=== PATIENT | male | born 1960 | race Caucasian/White ===

== ENCOUNTER 2018-05-17 05:39 | Inpatient (IN) | payer OTHER ==
[2018-05-17] MEDS ORDERED: IPRATROPIUM-ALBUTEROL 3 ML NEB INHALATION STA (05:44)
[2018-05-17 06:11] LABS: Basophils % (A) 0 %; Eosinophils # (A) 0.3 k/uL (0-0.7); Eosinophils % (A) 3 %; HCT 49.6 % (39.0-53.0); HGB 15.9 gm/dL (13.0-17.5); Lymphocytes # (A) 1.3 k/uL (1.0-4.8); Lymphocytes % (A) 12 %; MCH 30.2 pg (25.0-35.0); MCV 94.4 fL (80.0-100.0); Mean Platelet Volume 8.2; Monocytes # (A) 0.5 k/uL (0-1.0); Monocytes % (A) 5 %; Neutrophils # (A) 8.2 k/uL (1.3-7.7); Neutrophils % (A) 78 %; Platelet Count 256 k/uL (150-450); RBC 5.26 m/uL (4.30-5.90); RDW 12.8 % (11.5-15.5); WBC 10.6 k/uL (3.8-10.6)
--- NOTE | 2018-05-17 06:14 | ED ---
SOB HPI - General Stated Complaint: SOB Time Seen by Provider: 05/17/18 05:43 - History of Present Illness Initial Comments: Gely is a 58-year-old gentleman with a history of severe COPD who is brought to the ED today primary one patient for acute respiratory distress. She called 911 reporting that he couldn't breathe. EMS found the patient tripoding, oxygen saturations in the 60s, decreased air movement in all lung cash. Patient one word dyspnea. Patient was placed on CPAP. Patient received 2 breathing treatments and 125 of Solu-Medrol in route to the hospital. His respiratory effort improved significantly though he continued to have wheezing in all lung cash during the 20 minute transport time. On arrival patient is still requiring BiPAP support. Patient able to nod yes and no to answer questions. - Related Data Home Medications Medication Instructions Recorded Confirmed RX: Albuterol Inhaler [Ventolin 1 - 2 puff INHALATION RT-Q6H PRN 05/07/16 Hfa Inhaler] Previous Rx's Medication Instructions Recorded Budesonide/Formoterol Fumarate 2 puff INHALATION BID #1 inhaler 05/09/16 [Symbicort 80-4.5 Mcg Inhaler] RX: Doxycycline [Vibramycin] 50 mg PO BID #10 cap 05/09/16 RX: Ipratropium-Albuterol Nebulize 3 ml INHALATION RT-QID #120 05/09/16 [Duoneb 0.5 mg-3 mg/3 ml Soln] ampul.neb RX: Lisinopril [Zestril] 10 mg PO DAILY #30 tab 05/09/16 RX: Nicotine 14Mg/24Hr Patch 1 patch TRANSDERM DAILY #30 patch 05/09/16 [Habitrol] RX: predniSONE 10 mg PO DIRECTED #30 tab 05/09/16 Allergies Allergy/AdvReac Type Severity Reaction Status Date / Time No Known Allergies Allergy Verified 05/17/18 05:55 Review of Systems ROS Statement: Those systems with pertinent positive or pertinent negative responses have been documented in the HPI. ROS Other: All systems not noted in ROS Statement are negative. Past Medical History Past Medical History: COPD, Hypertension Additional Past Medical History / Comment(s): HTN w/ 2 medications at home. not sure of medications at this time History of Any Multi-Drug Resistant Organisms: None Reported Past Surgical History: Orthopedic Surgery Additional Past Surgical History / Comment(s): left lower leg Past Anesthesia/Blood Transfusion Reactions: No Reported Reaction Past Psychological History: No Psychological Hx Reported Smoking Status: Current every day smoker Past Alcohol Use History: None Reported Past Drug Use History: None Reported General Exam - General Exam Comments Initial Comments: Physical Exam GENERAL: Patient an acute respiratory distress HENT: Normocephalic, Atraumatic. EYES: PERRL, EOMI PULMONARY: Tachypneic, decreased air movement all lung cash, wheezing all lung cash, retractions, increased work of breathing CARDIOVASCULAR: Tachycardic, regular, warm and well perfused extremities ABDOMEN: Soft and nontender with normal bowel sounds. SKIN: Skin is flushed and sweaty : Deferred NEUROLOGIC: Patient is alert and oriented x3. Moving all extremities spontaneously MUSCULOSKELETAL: Normal extremities with adequate strength and full range of motion. No lower extremity swelling or edema. No calf tenderness. PSYCHIATRIC: Situational depression Limitations: no limitations Course Vital Signs 05/17/18 05/17/18 05/17/18 05:44 05:51 05:55 Temperature 97.7 F Pulse Rate 117 H 123 H 112 H Respiratory 40 H Rate Blood Pressure 145/90 O2 Sat by Pulse 96 Oximetry 05/17/18 05/17/18 05/17/18 05:56 06:07 06:11 Temperature 97.4 F L 97.5 F L Pulse Rate 114 H 118 H 109 H Respiratory 19 24 Rate Blood Pressure 119/83 108/61 O2 Sat by Pulse 96 96 Oximetry 05/17/18 06:39 Temperature Pulse Rate 105 H Respiratory 21 Rate Blood Pressure 98/77 O2 Sat by Pulse 97 Oximetry Medical Decision Making - Medical Decision Making Patient arrived via EMS priority 1 for respiratory distress Patient was seen and evaluated immediately upon arrival to the emergency department he was transitioned from CPAP to BiPAP History is limited by patient's respiratory distress however he is able to answer yes and no questions Patient reports 2 days of wheezing has been improving with his breathing treatments, this morning he became significantly worse, no improvement with breathing treatments, contacted 911, denies chest pain, denies fevers Patient describes feeling as though he can't breathe and feeling like he is going to . Triple DuoNeb therapy was ordered Labs and imaging ordered Labs with CKD Trop not elevated CXR with possible mass - in addition patient hypoxic and tachycardic - will CT for PE and eval mass 7:20am Patient respiratory effort improved, patient taken off BiPAP, speaking in clear sentences, continues to be CP free Patient care discussed with Dr. Mac who accepts admission for COPD exacerbation with hypoxia, is aware patient is in CT - CT not resuted at time of admission. - Lab Data Result diagrams: 05/17/18 05:49 05/17/18 05:49 Lab Results 05/17/18 05/17/18 05/17/18 Range/Units 05:49 05:49 05:49 WBC 10.6 (3.8-10.6) k/uL RBC 5.26 (4.30-5.90) m/uL Hgb 15.9 (13.0-17.5) gm/dL Hct 49.6 (39.0-53.0) % MCV 94.4 (80.0-100.0) fL MCH 30.2 (25.0-35.0) pg MCHC 32.0 (31.0-37.0) g/dL RDW 12.8 (11.5-15.5) % Plt Count 256 (150-450) k/uL Neutrophils % 78 % Lymphocytes % 12 % Monocytes % 5 % Eosinophils % 3 % Basophils % 0 % Neutrophils # 8.2 H (1.3-7.7) k/uL Lymphocytes # 1.3 (1.0-4.8) k/uL Monocytes # 0.5 (0-1.0) k/uL Eosinophils # 0.3 (0-0.7) k/uL Basophils # 0.0 (0-0.2) k/uL PT (9.0-12.0) sec INR (<1.2) APTT (22.0-30.0) sec Sodium 144 (137-145) mmol/L Potassium 4.5 (3.5-5.1) mmol/L Chloride 103 (98-107) mmol/L Carbon Dioxide 31 H (22-30) mmol/L Anion Gap 10 mmol/L BUN 18 (9-20) mg/dL Creatinine 0.63 L (0.66-1.25) mg/dL Est GFR (CKD-EPI)AfAm >90 (>60 ml/min/1.73 sqM) Est GFR (CKD-EPI)NonAf >90 (>60 ml/min/1.73 sqM) Glucose 152 H (74-99) mg/dL Plasma Lactic Acid Sabino 1.2 (0.7-2.0) mmol/L Calcium 8.9 (8.4-10.2) mg/dL Magnesium 1.9 (1.6-2.3) mg/dL Total Bilirubin 0.8 (0.2-1.3) mg/dL AST 27 (17-59) U/L ALT 45 (21-72) U/L Alkaline Phosphatase 71 (38-126) U/L Total Creatine Kinase (55-170) U/L CK-MB (CK-2) (0.0-2.4) ng/mL CK-MB (CK-2) Rel Index Troponin I (0.000-0.034) ng/mL Total Protein 7.4 (6.3-8.2) g/dL Albumin 4.5 (3.5-5.0) g/dL Influenza Type A RNA (Not Detectd) Influenza Type B (PCR) (Not Detectd) 05/17/18 05/17/18 05/17/18 Range/Units 05:49 05:49 06:04 WBC (3.8-10.6) k/uL RBC (4.30-5.90) m/uL Hgb (13.0-17.5) gm/dL Hct (39.0-53.0) % MCV (80.0-100.0) fL MCH (25.0-35.0) pg MCHC (31.0-37.0) g/dL RDW (11.5-15.5) % Plt Count (150-450) k/uL Neutrophils % % Lymphocytes % % Monocytes % % Eosinophils % % Basophils % % Neutrophils # (1.3-7.7) k/uL Lymphocytes # (1.0-4.8) k/uL Monocytes # (0-1.0) k/uL Eosinophils # (0-0.7) k/uL Basophils # (0-0.2) k/uL PT 10.5 (9.0-12.0) sec INR 1.0 (<1.2) APTT 23.4 (22.0-30.0) sec Sodium (137-145) mmol/L Potassium (3.5-5.1) mmol/L Chloride (98-107) mmol/L Carbon Dioxide (22-30) mmol/L Anion Gap mmol/L BUN (9-20) mg/dL Creatinine (0.66-1.25) mg/dL Est GFR (CKD-EPI)AfAm (>60 ml/min/1.73 sqM) Est GFR (CKD-EPI)NonAf (>60 ml/min/1.73 sqM) Glucose (74-99) mg/dL Plasma Lactic Acid Sabino (0.7-2.0) mmol/L Calcium (8.4-10.2) mg/dL Magnesium (1.6-2.3) mg/dL Total Bilirubin (0.2-1.3) mg/dL AST (17-59) U/L ALT (21-72) U/L Alkaline Phosphatase (38-126) U/L Total Creatine Kinase 113 (55-170) U/L CK-MB (CK-2) 4.4 H (0.0-2.4) ng/mL CK-MB (CK-2) Rel Index 3.9 Troponin I <0.012 (0.000-0.034) ng/mL Total Protein (6.3-8.2) g/dL Albumin (3.5-5.0) g/dL Influenza Type A RNA Not Detected (Not Detectd) Influenza Type B (PCR) Not Detected (Not Detectd) Disposition Clinical Impression: Acute exacerbation of chronic obstructive airways disease, Respiratory failure with hypoxia Disposition: ADMITTED IP TO THIS HOSP Condition: Serious Referrals: None,Stated [Primary Care Provider] - 1-2 days
[2018-05-17 06:22] LABS: ALT 45 U/L (21-72); AST 27 U/L (17-59); Albumin 4.5 g/dL (3.5-5.0); Alkaline Phosphatase 71 U/L (38-126); Anion Gap 10 mmol/L; Blood Urea Nitrogen 18 mg/dL (9-20); Calcium 8.9 mg/dL (8.4-10.2); Carbon Dioxide 31 mmol/L (22-30); Chloride 103 mmol/L (98-107); Glucose 152 mg/dL (74-99); Magnesium 1.9 mg/dL (1.6-2.3); Potassium 4.5 mmol/L (3.5-5.1); Sodium 144 mmol/L (137-145); Total Bilirubin 0.8 mg/dL (0.2-1.3); Total Protein 7.4 g/dL (6.3-8.2)
[2018-05-17 06:23] LABS: Creatine Kinase 113 U/L (55-170)
[2018-05-17 06:24] LABS: Partial Thromboplastin Time 23.4 sec (22.0-30.0); Prothrombin Time 10.5 sec (9.0-12.0)
--- NOTE | 2018-05-17 06:32 | XR ---
EXAM: XR Chest, 1 View CLINICAL HISTORY: ITS.REASON XR Reason: JERE, hypoxia TECHNIQUE: Frontal view of the chest. COMPARISON: Chest x-ray 05/06/16 IMPRESSION: There appears to be a 1 cm nodule in the left upper lobe which was not appreciated previously (near the fourth rib on the radiograph). Recommend chest CT. No consolidation or pleural effusion. Normal heart size.
[2018-05-17 06:36] LABS: Creatine Kinase MB 4.4 ng/mL (0.0-2.4); Troponin I <0.012 ng/mL (0.000-0.034)
[2018-05-17] MEDS ORDERED: NALOXONE 0.4 MG/ML 1 ML VIAL IV PRN (07:15)
[2018-05-17] MEDS ORDERED: IPRATROPIUM 0.5 MG/2.5 ML NEBU INHALATION SCH (08:00)
[2018-05-17] MEDS: IPRATROPIUM-ALBUTEROL 3 ML NEB INHALATION SCH ×4 (08:17→20:13)
--- NOTE | 2018-05-17 08:19 | CT ---
EXAMINATION TYPE: CT chest angio for PE DATE OF EXAM: 05/17/2018 COMPARISON: None HISTORY: SOB CT DLP: 333 mGycm CONTRAST: CT chest with contrast and 3D reconstruction with MIP imaging is performed with IV Contrast, patient injected with 71 mL of Isovue 370. Contrast-enhanced CT of the chest was performed through the course of the pulmonary arteries with lizzie g and mediastinal window settings submitted. 3D reconstruction with MIP imaging was also performed. PULMONARY ARTERIES: The pulmonary arteries and their major tributaries are patent. I do not see roberto dence for sizable filling defect to suggest pulmonary embolic process. LUNGS: The lungs are clear and free of infiltrate. Upper lobe emphysematous changes noted. No evidenc e for atelectasis. No pulmonary nodule or mass is detected. No pleural effusion. MEDIASTINUM: Thoracic aorta is of normal caliber,however, evaluation is limited given timing of the contrast bolus. If there is concern for thoracic aortic pathology consider SCOTTY. Correlate clinicall y . The heart is not enlarged. No evidence for mediastinal mass. No mediastinal lymph nodes greater than 1cm. HILAR STRUCTURES: No evidence for mass. No hilar lymph nodes greater than 1 cm. UPPER ABDOMEN: No significant abnormality is seen. IMPRESSION: 1. No evidence for Pulmonary embolism at this time.
[2018-05-17] MEDS ORDERED: INFLUENZA VACCINE (6 MOS+) 60 MCG/0.5 ML SYRINGE IM ONE (08:53)
[2018-05-17] MEDS ORDERED: PNEUMOCOCCAL VACC-PNEUMOVAX 23 25 MCG/0.5 ML VIAL IM ONE (08:53)
[2018-05-17] MEDS ORDERED: LISINOPRIL 10 MG TAB PO SCH (09:00)
[2018-05-17] MEDS: INSULIN ASPART 100 UNIT/ML 1 ML 10 ML VIAL SQ SCH ×4 (09:56→21:24)
[2018-05-17] MEDS: NICOTINE 14MG/24HR PATCH TRANSDERM SCH (09:57)
[2018-05-17] MEDS: LEVOFLOXACIN 500 MG TAB PO SCH (10:21)
--- NOTE | 2018-05-17 11:16 | P.CNPUL ---
History of Present Illness Consult date: 05/17/18 Requesting physician: Yamil Lee Reason for consult: dyspnea, cough, COPD Chief complaint: Acute exacerbation of chronic obstructive pulmonary disease History of present illness: This is a 58-year-old white male patient, who follows with the PCP in [place], she could not recall the name, with the history of advanced COPD on home oxygen, presented to the emergency department for evaluation of worsening shortness of breath, hypoxemia, patient was brought in by the EMS, found the patient tripoding, in severe respiratory distress, with oxygen saturations in the 60s, decreased air movement in all lung cash. Patient was placed on BiPAP , he was given breathing treatments, and dose of IV Solu-Medrol en route to the hospital, but his respiratory effort has improved significantly. Patient states he has not been feeling well for the last few weeks, with worsening shortness of breath, he was taking daily steroids, however as soon as he ran out his breathing became worse. Chest x-ray showed no consolidation or pleural effusion, showed a 1 cm nodule in the left upper lobe. CT angiogram of the chest showed no evidence of pulmonary embolism, lungs were free of infiltrates, upper lobe emphysematous changes were noted, no hilar lymph nodes greater than 1 cm, no evidence for mediastinal mass or lymphadenopathy, no pulmonary nodules or masses noted. EKG showed sinus tachycardia with a rate of 118 BPM, and evidence of right atrial enlargement, no acute ischemic changes. Labs showed WBC of 10.6, hemoglobin of 15.9, CO2 was 31, depressive electrolytes were within normal limits, BUN was 18 and creatinine 0.63, lactic acid was 1.2, troponin was negative 1, influenza was not detected. Patient denied any fever or chills, no significant cough or phlegm production. Patient wears 4 L of oxygen at home at bedtime, he quit smoking several years ago, but has a long history of smoking, since age 16 sometimes up to 3 packs a day. Patient was started on empiric antibiotics in the form of Levaquin, IV steroids, and nebulized bronchodilators, and we are seeing this patient in consultation for acute COPD exacerbation the intensive care unit today. Patient had been seen by Dr. Lee in the past, and workup on for Dr. Lee today. Review of Systems All systems: negative Constitutional: Denies chills, Denies fever Eyes: denies blurred vision, denies pain Ears, nose, mouth and throat: Denies headache, Denies sore throat Cardiovascular: Denies chest pain, Denies shortness of breath Respiratory: Reports dyspnea, Reports home oxygen, Denies cough Gastrointestinal: Denies abdominal pain, Denies diarrhea, Denies nausea, Denies vomiting Musculoskeletal: Denies myalgias Integumentary: Denies pruritus, Denies rash Neurological: Denies numbness, Denies weakness Psychiatric: Denies anxiety, Denies depression Endocrine: Denies fatigue, Denies weight change Past Medical History Past Medical History: COPD, Hypertension Additional Past Medical History / Comment(s): Severe COPD with acute hypoxic respiratory failure, home O2 prn, tremors bilateral hands, arthritis bilateral hands. History of Any Multi-Drug Resistant Organisms: None Reported Past Surgical History: Orthopedic Surgery Additional Past Surgical History / Comment(s): left lower leg fracture with surgery/no hardware, colonoscopy Past Anesthesia/Blood Transfusion Reactions: No Reported Reaction Smoking Status: Former smoker - Past Family History Father Family Medical History: Congestive Heart Failure (CHF) Additional Family Medical History / Comment(s): Father of CHF at the age of 80yrs. Mother Family Medical History: Cancer Additional Family Medical History / Comment(s): Mother from melanoma in her 70s. Medications and Allergies Home Medications Medication Instructions Recorded Confirmed Type Albuterol Inhaler [Ventolin Hfa 1 - 2 puff INHALATION RT-Q6H PRN 05/07/16 History Inhaler] Lisinopril 40 mg PO BID 05/17/18 05/17/18 History amLODIPine [Norvasc] 5 mg PO DAILY 05/17/18 05/17/18 History Allergies Allergy/AdvReac Type Severity Reaction Status Date / Time No Known Allergies Allergy Verified 05/17/18 05:55 Physical Exam Vitals: Vital Signs Temp Pulse Pulse Resp BP BP Pulse Ox 05/17/18 09:15 98.1 F 90 22 120/91 95 05/17/18 09:03 98.2 F 102 H 22 102/79 95 05/17/18 08:27 105 H 05/17/18 08:17 91 05/17/18 08:02 98 18 120/89 98 05/17/18 06:39 105 H 21 98/77 97 05/17/18 06:11 109 H 05/17/18 06:07 97.5 F L 118 H 24 108/61 96 05/17/18 05:56 97.4 F L 114 H 19 119/83 96 05/17/18 05:55 112 H 05/17/18 05:51 97.7 F 123 H 40 H 145/90 96 05/17/18 05:44 117 H Intake and Output 05/16/18 05/17/18 05/17/18 22:59 06:59 14:59 Other: Voiding Method Urinal Weight 82.1 kg GENERAL EXAM: Alert, pleasant, 58-year-old white male, dyspneic with conversation, currently on 6 L per nasal cannula, was on BiPAP short while ago for severe respiratory distress. HEAD: Normocephalic/atraumatic. EYES: Normal reaction of pupils, equal size. Conjunctiva pink, sclera white. NOSE: Clear with pink turbinates. THROAT: No erythema or exudates. NECK: No masses, no JVD, no thyroid enlargement, no adenopathy. CHEST: No chest wall deformity. Symmetrical expansion. LUNGS: Diminished breath sounds bilaterally, with prolongation of expiratory phase, wheezing on forced exhale maneuver CVS: Regular rate and rhythm, normal S1 and S2, no gallops, no murmurs, no rubs ABDOMEN: Soft, nontender. No hepatosplenomegaly, normal bowel sounds, no guarding or rigidity. EXTREMITIES: No clubbing, no edema, no cyanosis, 2+ pulses and upper and lower extremities. MUSCULOSKELETAL: Muscle strength and tone normal. SPINE: No scoliosis or deformity SKIN: No rashes CENTRAL NERVOUS SYSTEM: Alert and oriented -3. No focal deficits, tone is normal in all 4 extremities. PSYCHIATRIC: Alert and oriented -3. Appropriate affect. Intact judgment and insight. Results - Laboratory Findings CBC and BMP: 05/17/18 05:49 05/17/18 05:49 PT/INR, D-dimer PT 10.5 sec (9.0-12.0) 05/17/18 05:49 INR 1.0 (<1.2) 05/17/18 05:49 Abnormal lab findings: Abnormal Labs 05/17/18 05/17/18 05/17/18 05:49 05:49 05:49 Neutrophils # 8.2 H Carbon Dioxide 31 H Creatinine 0.63 L Glucose 152 H CK-MB (CK-2) 4.4 H - Diagnostic Findings Chest x-ray: report reviewed, image reviewed CT scan - chest: report reviewed, image reviewed Additional studies: EKG reviewed Assessment and Plan Plan: Assessment: #1. Acute on chronic hypoxemic respiratory failure secondary to acute exacerbation of chronic obstructive pulmonary disease #2. Advanced COPD with chronic hypoxemic and hypercapnic respiratory failure, wears 4 L of oxygen at bedtime at home #3. Nicotine dependence, currently in remission #4. Hypertension Plan: We'll continue current antibiotic coverage, continue IV Solu-Medrol, nebulized bronchodilators, we will add Pulmicort and Perforomist, Bi-Pap support as needed , chest x-ray and CT angios of the chest were reviewed by Dr. Hicks, showed no acute findings, no lymphadenopathy, no evidence of pulmonary embolism, no infiltrates or heart failure. Showed emphysematous changes in the upper lobes. Patient will remain the intensive care unit today, and seemed to follow I performed a history & physical examination of the patient and discussed their management with my nurse practitioner, Nereida Vasquez. I reviewed the nurse practitioner's note and agree with the documented findings and plan of care. Lung sounds are diminished, with diffuse wheezing. The findings and the impression was discussed with the patient. I attest to the documentation by the nurse practitioner. Time with Patient: Greater than 30
[2018-05-17 12:01] LABS: Glucose,Whole Blood 147 mg/dL (75-99)
[2018-05-17] MEDS: methylPREDNISolone SOD SUCCI 125 MG/2 ML VIAL IV SCH ×3 (12:10→22:21)
--- NOTE | 2018-05-17 12:59 | HP ---
HISTORY AND PHYSICAL CHIEF COMPLAINT: Difficulty breathing. HISTORY OF PRESENT ILLNESS: This is the first known admission for this 58-year-old white male with COPD. He has been a heavy smoker. In the emergency room, had acute respiratory distress, brought by ambulance. He was given CPAP in the ambulance and then BiPAP in the emergency room. REVIEW OF SYSTEMS: He has had no headaches, neurologic problems, cough, hemoptysis, etc. He was complaining of some anterior chest pain with breathing. He has had no heart disease, murmurs, rheumatic fever, hypertension, orthopnea, PND, abdominal pain, vomiting, diarrhea, hematemesis, melena, jaundice, hematuria, frequency, urgency, renal disease, diabetes, etc. Past medical history, family history and personal and social histories reveal that he has been on Vibramycin, lisinopril 10, transderm nicotine patch 14 mg per 24 hours and was on prednisone. He is not allergic to any medication. He had some type of a surgical procedure on his left leg in the past. In the ER, his laboratory studies were normal. PHYSICAL EXAM: Pulse is 105, temperature 98.2, blood pressure is 120/91, and respiratory rate was 32. GENERAL: He appeared to be well developed, well nourished and in respiratory distress. He had an increased AP diameter. Head, ears, eyes, nose, mouth, and throat were normal. Neck veins not distended. Chest demonstrated poor breath sounds with scattered rales throughout and inspiratory and expiratory wheezing. Cardiac exam demonstrated sinus rhythm with no murmurs. Abdomen is soft, nontender without any masses or visceromegaly. Extremities are normal. Neurologically, he is intact. He is admitted to the hospital with diagnoses: 1. Exacerbation of chronic obstructive pulmonary disease. 2. History of hypertension. PLAN: 1. Bed rest. 2. IV fluids. 3. IV and inhaled steroids. 4. Updrafts. MMODL / IJN: [id number] /
[2018-05-17 17:34] LABS: Glucose,Whole Blood 202 mg/dL (75-99)
[2018-05-17] MEDS: FORMOTEROL FUMARATE 20 MCG/2 ML NEBU INHALATION SCH (20:13)
[2018-05-17] MEDS: BUDESONIDE 1 MG/2 ML NEBU INHALATION SCH (20:13)
[2018-05-17 20:45] LABS: Glucose,Whole Blood 150 mg/dL (75-99)
[2018-05-17] MEDS: LISINOPRIL 20 MG TAB PO SCH (21:25)
[2018-05-18 06:21] LABS: Glucose,Whole Blood 155 mg/dL (75-99)
[2018-05-18] MEDS: methylPREDNISolone SOD SUCCI 125 MG/2 ML VIAL IV SCH ×2 (06:21→11:41)
[2018-05-18] MEDS: INSULIN ASPART 100 UNIT/ML 1 ML 10 ML VIAL SQ SCH ×4 (06:21→23:06)
[2018-05-18] MEDS: NICOTINE 14MG/24HR PATCH TRANSDERM SCH (08:33)
[2018-05-18] MEDS: LISINOPRIL 20 MG TAB PO SCH ×2 (08:33→20:22)
[2018-05-18] MEDS: amLODIPine 5 MG TAB PO SCH (08:33)
[2018-05-18] MEDS: LEVOFLOXACIN 500 MG TAB PO SCH (08:33)
[2018-05-18] MEDS: IPRATROPIUM-ALBUTEROL 3 ML NEB INHALATION SCH ×4 (08:40→20:23)
[2018-05-18] MEDS: BUDESONIDE 1 MG/2 ML NEBU INHALATION SCH ×2 (08:40→20:23)
[2018-05-18] MEDS: FORMOTEROL FUMARATE 20 MCG/2 ML NEBU INHALATION SCH ×2 (08:40→20:23)
[2018-05-18 11:53] LABS: Glucose,Whole Blood 146 mg/dL (75-99)
--- NOTE | 2018-05-18 13:41 | PN ---
PROGRESS NOTE CHIEF COMPLAINT: COPD. HISTORY OF PRESENT ILLNESS: This gentleman continues to be very dyspneic. He is responding only very slowly. PHYSICAL EXAM: Breath sounds are diminished throughout. He has inspiratory and expiratory wheezing. Cardiac exam is normal. IMPRESSION: Exacerbation of chronic obstructive pulmonary disease-little improved. PLAN: Continue on current program. He would like to be discharged tomorrow, but this might be difficult. MMODL / IJN: [id number] /
--- NOTE | 2018-05-18 15:01 | P.PN ---
Subjective Progress Note Date: 05/18/18 Principal diagnosis: Acute exacerbation of chronic obstructive pulmonary disease. This is a 58-year-old white male patient, who follows with the PCP in [place], she could not recall the name, with the history of advanced COPD on home oxygen, presented to the emergency department for evaluation of worsening shortness of breath, hypoxemia, patient was brought in by the EMS, found the patient tripoding, in severe respiratory distress, with oxygen saturations in the 60s, decreased air movement in all lung cash. Patient was placed on BiPAP , he was given breathing treatments, and dose of IV Solu-Medrol en route to the hospital, but his respiratory effort has improved significantly. Patient states he has not been feeling well for the last few weeks, with worsening shortness of breath, he was taking daily steroids, however as soon as he ran out his breathing became worse. Chest x-ray showed no consolidation or pleural effusion, showed a 1 cm nodule in the left upper lobe. CT angiogram of the chest showed no evidence of pulmonary embolism, lungs were free of infiltrates, upper lobe emphysematous changes were noted, no hilar lymph nodes greater than 1 cm, no evidence for mediastinal mass or lymphadenopathy, no pulmonary nodules or masses noted. EKG showed sinus tachycardia with a rate of 118 BPM, and evidence of right atrial enlargement, no acute ischemic changes. Labs showed WBC of 10.6, hemoglobin of 15.9, CO2 was 31, depressive electrolytes were within normal limits, BUN was 18 and creatinine 0.63, lactic acid was 1.2, troponin was negative 1, influenza was not detected. Patient denied any fever or chills, no significant cough or phlegm production. Patient wears 4 L of oxygen at home at bedtime, he quit smoking several years ago, but has a long history of smoking, since age 16 sometimes up to 3 packs a day. Patient was started on empiric antibiotics in the form of Levaquin, IV steroids, and nebulized bronchodilators, and we are seeing this patient in consultation for acute COPD exacerbation the intensive care unit today. Patient had been seen by Dr. Lee in the past, and workup on for Dr. Lee today. The patient is seen today 05/18/2018 in follow-up on the selective care unit. He is awake and alert in no acute distress. He is maintaining good O2 saturations in the low 90s on 4 L/m per nasal cannula. He's been afebrile. He has been up ambulating in his room. His been maintained on DuoNeb inhalations, Pulmicort and Perforomist inhalations, IV Solu-Medrol and empiric antibiotics in the form of Levaquin. NicoDerm patches in place. Objective - Vital Signs Vital signs: Vital Signs Temp 97.8 F 05/18/18 12:00 Pulse 104 H 05/18/18 12:16 Resp 18 05/18/18 12:00 BP 108/69 05/18/18 12:00 Pulse Ox 93 L 05/18/18 12:00 Intake & Output 05/17/18 05/18/18 05/18/18 18:59 06:59 18:59 Intake Total 350 672 240 Output Total 600 400 Balance -250 272 240 Weight 82.1 kg Intake: IV 350 150 NS 350 150 Oral 522 240 Output: Urine 600 400 Other: Voiding Method Urinal Urinal Urinal # Voids 1 - Exam GENERAL EXAM: Alert, pleasant, 58-year-old white male, dyspneic with conversation, currently on 4 L per nasal cannula. HEAD: Normocephalic/atraumatic. EYES: Normal reaction of pupils, equal size. Conjunctiva pink, sclera white. NOSE: Clear with pink turbinates. THROAT: No erythema or exudates. NECK: No masses, no JVD, no thyroid enlargement, no adenopathy. CHEST: No chest wall deformity. Symmetrical expansion. LUNGS: Diminished breath sounds bilaterally, with prolongation of expiratory phase, wheezing on forced exhale maneuver CVS: Regular rate and rhythm, normal S1 and S2, no gallops, no murmurs, no rubs ABDOMEN: Soft, nontender. No hepatosplenomegaly, normal bowel sounds, no guarding or rigidity. EXTREMITIES: No clubbing, no edema, no cyanosis, 2+ pulses and upper and lower extremities. MUSCULOSKELETAL: Muscle strength and tone normal. SPINE: No scoliosis or deformity SKIN: No rashes CENTRAL NERVOUS SYSTEM: Alert and oriented -3. No focal deficits, tone is normal in all 4 extremities. PSYCHIATRIC: Alert and oriented -3. Appropriate affect. Intact judgment and insight. - Labs CBC & Chem 7: 05/17/18 05:49 05/17/18 05:49 Labs: Abnormal Lab Results - Last 24 Hours (Table) 05/17/18 05/17/18 05/18/18 Range/Units 17:31 20:43 06:19 POC Glucose (mg/dL) 202 H 150 H 155 H (75-99) mg/dL 05/18/18 Range/Units 11:41 POC Glucose (mg/dL) 146 H (75-99) mg/dL Microbiology - Last 24 Hours (Table) 05/17/18 05:49 Blood Culture - Preliminary Blood No Growth after 24 hours Assessment and Plan Assessment: Assessment: #1. Acute on chronic hypoxemic respiratory failure secondary to acute exacerbation of chronic obstructive pulmonary disease #2. Advanced COPD with chronic hypoxemic and hypercapnic respiratory failure, wears 4 L of oxygen at bedtime at home #3. Nicotine dependence, currently in remission #4. Hypertension Plan: The patient was seen and evaluated by Dr. Hicks. He is currently stable from the pulmonary standpoint. We'll continue his current treatment plan. Convert to oral prednisone. We'll see the patient on as-needed basis. I, the cosigning physician, performed a history & physical examination of the patient. Lungs sounds are clear. Maintaining good O2 saturations in the 90s on 4 L/m per nasal cannula. I discussed the assessment and plan of care with my nurse practitioner, Iris Wang. I attest to the above note as dictated by her.
[2018-05-18 17:48] LABS: Glucose,Whole Blood 142 mg/dL (75-99)
[2018-05-18 20:45] LABS: Glucose,Whole Blood 192 mg/dL (75-99)
[2018-05-19 06:07] LABS: Glucose,Whole Blood 151 mg/dL (75-99)
[2018-05-19] MEDS: INSULIN ASPART 100 UNIT/ML 1 ML 10 ML VIAL SQ SCH ×4 (06:56→22:12)
[2018-05-19] MEDS: IPRATROPIUM-ALBUTEROL 3 ML NEB INHALATION SCH ×4 (08:29→19:46)
[2018-05-19] MEDS: FORMOTEROL FUMARATE 20 MCG/2 ML NEBU INHALATION SCH ×2 (08:29→19:46)
[2018-05-19] MEDS: BUDESONIDE 1 MG/2 ML NEBU INHALATION SCH ×2 (08:29→19:47)
[2018-05-19] MEDS: predniSONE 20 MG TAB PO SCH (09:10)
[2018-05-19] MEDS: LISINOPRIL 20 MG TAB PO SCH ×2 (09:10→20:15)
[2018-05-19] MEDS: amLODIPine 5 MG TAB PO SCH (09:10)
[2018-05-19] MEDS: LEVOFLOXACIN 500 MG TAB PO SCH (09:11)
[2018-05-19] MEDS: NICOTINE 14MG/24HR PATCH TRANSDERM SCH (09:12)
[2018-05-19 11:58] LABS: Glucose,Whole Blood 110 mg/dL (75-99)
--- NOTE | 2018-05-19 13:13 | PN ---
PROGRESS NOTE CHIEF COMPLAINT: Exacerbation of chronic obstructive pulmonary disease. HISTORY OF PRESENT ILLNESS: This gentleman is doing a little bit better. PHYSICAL EXAM: He still has poor breath sounds with scattered rales and rhonchi. Cardiac exam is normal. IMPRESSION: Exacerbation of chronic obstructive pulmonary disease. PLAN: Possibly home tomorrow if he continues to improve. MMODL / IJN: [id number] /
[2018-05-19 16:53] LABS: Glucose,Whole Blood 131 mg/dL (75-99)
[2018-05-19 21:39] LABS: Glucose,Whole Blood 105 mg/dL (75-99)
[2018-05-20] MEDS: LISINOPRIL 20 MG TAB PO SCH (07:22)
[2018-05-20] MEDS: amLODIPine 5 MG TAB PO SCH (07:22)
[2018-05-20 07:26] VITALS: RESP 18; TEMP 98.3
[2018-05-20 08:14] LABS: Glucose,Whole Blood 93 mg/dL (75-99)
[2018-05-20] MEDS: INSULIN ASPART 100 UNIT/ML 1 ML 10 ML VIAL SQ SCH ×2 (08:20→12:23)
[2018-05-20] MEDS: predniSONE 20 MG TAB PO SCH (09:13)
[2018-05-20] MEDS: LEVOFLOXACIN 500 MG TAB PO SCH (09:13)
[2018-05-20] MEDS: NICOTINE 14MG/24HR PATCH TRANSDERM SCH (09:14)
[2018-05-20] MEDS: FORMOTEROL FUMARATE 20 MCG/2 ML NEBU INHALATION SCH (09:27)
[2018-05-20] MEDS: BUDESONIDE 1 MG/2 ML NEBU INHALATION SCH (09:27)
[2018-05-20] MEDS: IPRATROPIUM-ALBUTEROL 3 ML NEB INHALATION SCH ×3 (09:27→16:40)
[2018-05-20 12:01] LABS: Glucose,Whole Blood 108 mg/dL (75-99)
[2018-05-20 15:40] VITALS: BP 144/90; PULSE 107
--- NOTE | 2018-05-21 08:09 | DS ---
DISCHARGE SUMMARY CHIEF COMPLAINT: COPD. HISTORY OF PRESENT ILLNESS AND PHYSICAL EXAM: The details of this man's history and physical can be found in the initial workup. LABORATORY STUDIES: While he was in a hospital he had laboratory studies, details of which can be found in the laboratory section of his chart. COURSE IN HOSPITAL: After admission he was placed on bedrest, started on intravenous fluids and full updrafts with inhaled IV steroids. Chest slowly cleared. He improved sufficiently that he could be discharged on the . He will follow up in the office in several days. FINAL DIAGNOSIS: Exacerbation of chronic obstructive pulmonary disease. OPERATIONS: None. CONSULTATION: None. He is improved. MMODL / IJN: [id number] /
[2018-05-21] MEDS ORDERED: methylPREDNISolone 4 MG TAB TAPER PO SCH (09:00)
== END 2018-05-20 16:40 | disposition home or self-care (01) | DRG 190 ==
LOC: EC 05:39 → 3SCARD 07:18 → 2SICU 08:37 → 3SCARD 16:22 → 4SSUR 05-19 21:22
PROVIDERS: ADMIT Family Medicine; ATTEND Family Medicine
PROC: 5A09357 Assistance with Respiratory Ventilation, Less than 24 Consecutive Hours, Continuous Positive Airway Pressure (ICD-10-PCS; principal; 2018-05-17)
DX: J44.1 Chronic obstructive pulmonary disease with (acute) exacerbation (principal); J96.21 Acute and chronic respiratory failure with hypoxia; J96.12 Chronic respiratory failure with hypercapnia; I10 Essential (primary) hypertension; M19.042 Primary osteoarthritis, left hand; M19.041 Primary osteoarthritis, right hand; R25.1 Tremor, unspecified; F17.201 Nicotine dependence, unspecified, in remission; Z99.81 Dependence on supplemental oxygen
CPT/HCPCS: 36415; 71045; 71275; 80053; 82550; 82553; 83605; 83735; 84484; 85025; 85610; 85730; 87040; 87502; 90686; 90732; 93005; 94640; 94644; 94660; 94760; 99285

== ENCOUNTER 2020-07-07 13:11 | Inpatient (IN) | payer OTHER ==
[2020-07-07] MEDS ORDERED: IPRATROPIUM 0.5 MG/2.5 ML NEBU INHALATION STA (13:14)
[2020-07-07] MEDS ORDERED: ALBUTEROL NEBULIZED 2.5 MG/3 ML INHALATION STA (13:14)
--- NOTE | 2020-07-07 13:17 | ED ---
General Adult HPI - General Stated complaint: sob Time Seen by Provider: 07/07/20 13:14 Source: patient, EMS, RN notes reviewed, old records reviewed Limitations: physical limitation - History of Present Illness Initial comments: 60-year-old male history of COPD on home oxygen presenting with severe dyspnea. Patient placed on CPAP by EMS, given albuterol, Atrovent, Solu-Medrol prior to arrival. Initially the patient was in severe respiratory distress with a respiratory rate of 40, he was hypoxic in the 80s, unable to answer questions. He was placed on CPAP during transport with improved respiratory status at the time of arrival. He denies pain. Denies fever. He reports that his breathing had been quite good up until approximately 24 hours ago. He denies any known contacts with coronal virus. He does have previous history of severe COPD exacerbation. No lower extremity pain or swelling. No central chest pain. No vomiting. - Related Data Home Medications Medication Instructions Recorded Confirmed Albuterol Nebulized [Ventolin 2.5 mg INHALATION RT-Q4H PRN 07/07/20 07/07/20 Nebulized] Albuterol Sulfate [Proair Hfa] 1 - 2 puff INHALATION RT-Q6H PRN 07/07/20 07/07/20 amLODIPine [Norvasc] 10 mg PO DAILY 07/07/20 07/07/20 lisinopriL [Zestril] 20 mg PO DAILY 07/07/20 07/07/20 Allergies Allergy/AdvReac Type Severity Reaction Status Date / Time No Known Allergies Allergy Verified 07/07/20 14:03 Review of Systems ROS Statement: Those systems with pertinent positive or pertinent negative responses have been documented in the HPI. ROS Other: All systems not noted in ROS Statement are negative. Past Medical History Past Medical History: COPD, Hypertension Additional Past Medical History / Comment(s): Severe COPD with acute hypoxic respiratory failure, home O2 prn, tremors bilateral hands, arthritis bilateral hands. History of Any Multi-Drug Resistant Organisms: None Reported Past Surgical History: Orthopedic Surgery Additional Past Surgical History / Comment(s): left lower leg fracture with surgery/no hardware, colonoscopy Past Anesthesia/Blood Transfusion Reactions: No Reported Reaction Past Psychological History: No Psychological Hx Reported Additional Psychological History / Comment(s): Pt resides alone. He is disabled. He uses no assistive device. He has oxygen that he uses prn and a nebulizer. Pt is illiterate. Past Alcohol Use History: None Reported Additional Past Alcohol Use History / Comment(s): Pt started smoking in 1975 and quit in 2016. He smoked 3 ppd. Past Drug Use History: None Reported - Past Family History Father Family Medical History: Congestive Heart Failure (CHF) Additional Family Medical History / Comment(s): Father of CHF at the age of 80yrs. Mother Family Medical History: Cancer Additional Family Medical History / Comment(s): Mother from melanoma in her 70s. General Exam General appearance: alert, in distress Head exam: Present: atraumatic, normocephalic Eye exam: Present: normal appearance, PERRL ENT exam: Present: normal exam Neck exam: Present: normal inspection. Absent: tenderness, meningismus Respiratory exam: Present: respiratory distress, wheezes, chest wall tenderness, decreased breath sounds Cardiovascular Exam: Present: regular rate, normal rhythm GI/Abdominal exam: Present: soft. Absent: distended, tenderness, guarding, rebound Extremities exam: Present: normal inspection, normal capillary refill. Absent: pedal edema, calf tenderness Neurological exam: Present: alert, oriented X3, CN II-XII intact. Absent: motor sensory deficit Psychiatric exam: Present: anxious Skin exam: Present: warm, dry, intact Course Vital Signs 07/07/20 07/07/20 07/07/20 13:14 13:29 13:52 Temperature 97.9 F Pulse Rate 124 H 117 H 111 H Respiratory 24 24 Rate Blood Pressure 101/79 120/77 O2 Sat by Pulse 100 98 Oximetry 07/07/20 13:53 Temperature Pulse Rate 112 H Respiratory Rate Blood Pressure O2 Sat by Pulse Oximetry EKG Findings - EKG Comments: EKG Findings:: EKG: Sinus tachycardia, rate of 123, NV interval 134, QRS duration 76, QTC [address] segment elevation. Medical Decision Making - Medical Decision Making 60-year-old male presenting with severe respiratory distress, placed on CPAP by EMS, continued on BiPAP in the emergency department. History of COPD and emphysema. Patient has EKG showing sinus tachycardia, no definitive ischemic changes. Patient has a normal CBC, stable hemoglobin, normal CMP, he has an elevated CO2 on venous gas at 66. His chest x-ray shows emphysema with no focal pneumonia. Patient will be continued on treatment for COPD exacerbation. He has been ad mitted to Dr. Salgado, with pulmonology on consult. - Lab Data Result diagrams: 07/07/20 13:24 07/07/20 13:24 Lab Results 07/07/20 07/07/20 07/07/20 Range/Units 13:24 13:24 13:24 WBC 10.7 H (3.8-10.6) k/uL RBC 5.23 (4.30-5.90) m/uL Hgb 16.3 (13.0-17.5) gm/dL Hct 48.5 (39.0-53.0) % MCV 92.6 (80.0-100.0) fL MCH 31.1 (25.0-35.0) pg MCHC 33.6 (31.0-37.0) g/dL RDW 12.3 (11.5-15.5) % Plt Count 346 (150-450) k/uL MPV 7.9 Neutrophils % 79 % Lymphocytes % 13 % Monocytes % 5 % Eosinophils % 2 % Basophils % 1 % Neutrophils # 8.4 H (1.3-7.7) k/uL Lymphocytes # 1.4 (1.0-4.8) k/uL Monocytes # 0.5 (0-1.0) k/uL Eosinophils # 0.2 (0-0.7) k/uL Basophils # 0.1 (0-0.2) k/uL PT 10.2 (9.0-12.0) sec INR 0.9 (<1.2) APTT 22.3 (22.0-30.0) sec VBG pH (7.31-7.41) VBG pCO2 (37-51) mmHg VBG HCO3 (24-28) mmol/L Sodium 140 (137-145) mmol/L Potassium 4.9 (3.5-5.1) mmol/L Chloride 103 (98-107) mmol/L Carbon Dioxide 27 (22-30) mmol/L Anion Gap 10 mmol/L BUN 12 (9-20) mg/dL Creatinine 0.86 (0.66-1.25) mg/dL Est GFR (CKD-EPI)AfAm >90 (>60 ml/min/1.73 sqM) Est GFR (CKD-EPI)NonAf >90 (>60 ml/min/1.73 sqM) Glucose 158 H (74-99) mg/dL Plasma Lactic Acid Sabino (0.7-2.0) mmol/L Calcium 9.4 (8.4-10.2) mg/dL Magnesium 2.0 (1.6-2.3) mg/dL Total Bilirubin 0.5 (0.2-1.3) mg/dL AST 33 (17-59) U/L ALT 50 H (4-49) U/L Alkaline Phosphatase 83 (38-126) U/L Troponin I (0.000-0.034) ng/mL NT-Pro-B Natriuret Pep pg/mL Total Protein 7.6 (6.3-8.2) g/dL Albumin 4.8 (3.5-5.0) g/dL Coronavirus (PCR) (Not Detectd) Influenza Type A RNA (Not Detectd) Influenza Type B (PCR) (Not Detectd) 07/07/20 07/07/20 07/07/20 Range/Units 13:24 13:24 13:24 WBC (3.8-10.6) k/uL RBC (4.30-5.90) m/uL Hgb (13.0-17.5) gm/dL Hct (39.0-53.0) % MCV (80.0-100.0) fL MCH (25.0-35.0) pg MCHC (31.0-37.0) g/dL RDW (11.5-15.5) % Plt Count (150-450) k/uL MPV Neutrophils % % Lymphocytes % % Monocytes % % Eosinophils % % Basophils % % Neutrophils # (1.3-7.7) k/uL Lymphocytes # (1.0-4.8) k/uL Monocytes # (0-1.0) k/uL Eosinophils # (0-0.7) k/uL Basophils # (0-0.2) k/uL PT (9.0-12.0) sec INR (<1.2) APTT (22.0-30.0) sec VBG pH (7.31-7.41) VBG pCO2 (37-51) mmHg VBG HCO3 (24-28) mmol/L Sodium (137-145) mmol/L Potassium (3.5-5.1) mmol/L Chloride (98-107) mmol/L Carbon Dioxide (22-30) mmol/L Anion Gap mmol/L BUN (9-20) mg/dL Creatinine (0.66-1.25) mg/dL Est GFR (CKD-EPI)AfAm (>60 ml/min/1.73 sqM) Est GFR (CKD-EPI)NonAf (>60 ml/min/1.73 sqM) Glucose (74-99) mg/dL Plasma Lactic Acid Sabino 1.4 (0.7-2.0) mmol/L Calcium (8.4-10.2) mg/dL Magnesium (1.6-2.3) mg/dL Total Bilirubin (0.2-1.3) mg/dL AST (17-59) U/L ALT (4-49) U/L Alkaline Phosphatase (38-126) U/L Troponin I <0.012 (0.000-0.034) ng/mL NT-Pro-B Natriuret Pep 18 pg/mL Total Protein (6.3-8.2) g/dL Albumin (3.5-5.0) g/dL Coronavirus (PCR) (Not Detectd) Influenza Type A RNA (Not Detectd) Influenza Type B (PCR) (Not Detectd) 07/07/20 07/07/20 07/07/20 Range/Units 13:24 13:24 13:24 WBC (3.8-10.6) k/uL RBC (4.30-5.90) m/uL Hgb (13.0-17.5) gm/dL Hct (39.0-53.0) % MCV (80.0-100.0) fL MCH (25.0-35.0) pg MCHC (31.0-37.0) g/dL RDW (11.5-15.5) % Plt Count (150-450) k/uL MPV Neutrophils % % Lymphocytes % % Monocytes % % Eosinophils % % Basophils % % Neutrophils # (1.3-7.7) k/uL Lymphocytes # (1.0-4.8) k/uL Monocytes # (0-1.0) k/uL Eosinophils # (0-0.7) k/uL Basophils # (0-0.2) k/uL PT (9.0-12.0) sec INR (<1.2) APTT (22.0-30.0) sec VBG pH 7.23 L (7.31-7.41) VBG pCO2 66 H (37-51) mmHg VBG HCO3 27 (24-28) mmol/L Sodium (137-145) mmol/L Potassium (3.5-5.1) mmol/L Chloride (98-107) mmol/L Carbon Dioxide (22-30) mmol/L Anion Gap mmol/L BUN (9-20) mg/dL Creatinine (0.66-1.25) mg/dL Est GFR (CKD-EPI)AfAm (>60 ml/min/1.73 sqM) Est GFR (CKD-EPI)NonAf (>60 ml/min/1.73 sqM) Glucose (74-99) mg/dL Plasma Lactic Acid Sabino (0.7-2.0) mmol/L Calcium (8.4-10.2) mg/dL Magnesium (1.6-2.3) mg/dL Total Bilirubin (0.2-1.3) mg/dL AST (17-59) U/L ALT (4-49) U/L Alkaline Phosphatase (38-126) U/L Troponin I (0.000-0.034) ng/mL NT-Pro-B Natriuret Pep pg/mL Total Protein (6.3-8.2) g/dL Albumin (3.5-5.0) g/dL Coronavirus (PCR) Not Detected (Not Detectd) Influenza Type A RNA Not Detected (Not Detectd) Influenza Type B (PCR) Not Detected (Not Detectd) Critical Care Time Critical Care Time: Yes Total Critical Care Time: 35 Disposition Clinical Impression: Acute exacerbation of chronic obstructive airways disease, Respiratory failure with hypoxia Disposition: ADMITTED IP TO THIS HOSP Condition: Stable Is patient prescribed a controlled substance at d/c from ED?: No Referrals: None,Stated [Primary Care Provider] - 1-2 days Decision to Admit Reason: Admit from EC Decision Date: 07/07/20 Decision Time: 15:14
--- NOTE | 2020-07-07 13:33 | XR ---
EXAMINATION TYPE: XR chest 1V portable DATE OF EXAM: 07/07/2020 COMPARISON: Chest x-ray and chest CT 05/17/2018 HISTORY: Difficulty breathing TECHNIQUE: Single frontal view of the chest is obtained. FINDINGS: There is no focal air space opacity, pleural effusion, or pneumothorax seen. The cardiac silhouette size is within normal limits. The osseous structures are intact. IMPRESSION: No acute process. Emphysema.
[2020-07-07 13:43] LABS: VBG PH 7.23 (7.31-7.41)
[2020-07-07 13:44] LABS: Basophils # (A) 0.1 k/uL (0-0.2); Basophils % (A) 1 %; Eosinophils # (A) 0.2 k/uL (0-0.7); Eosinophils % (A) 2 %; HCT 48.5 % (39.0-53.0); HGB 16.3 gm/dL (13.0-17.5); Lymphocytes # (A) 1.4 k/uL (1.0-4.8); Lymphocytes % (A) 13 %; MCH 31.1 pg (25.0-35.0); MCHC 33.6 g/dL (31.0-37.0); MCV 92.6 fL (80.0-100.0); Mean Platelet Volume 7.9; Monocytes # (A) 0.5 k/uL (0-1.0); Monocytes % (A) 5 %; Neutrophils # (A) 8.4 k/uL (1.3-7.7); Neutrophils % (A) 79 %; Platelet Count 346 k/uL (150-450); RBC 5.23 m/uL (4.30-5.90); RDW 12.3 % (11.5-15.5); WBC 10.7 k/uL (3.8-10.6)
[2020-07-07 13:58] LABS: ALT 50 U/L (4-49); AST 33 U/L (17-59); African American GFR (CKD) >90 (>60 ml/min/1.73 sqM); Albumin 4.8 g/dL (3.5-5.0); Alkaline Phosphatase 83 U/L (38-126); Anion Gap 10 mmol/L; Blood Urea Nitrogen 12 mg/dL (9-20); Calcium 9.4 mg/dL (8.4-10.2); Carbon Dioxide 27 mmol/L (22-30); Chloride 103 mmol/L (98-107); Glucose 158 mg/dL (74-99); INR 0.9 (<1.2); Non-African American GFR(CKD) >90 (>60 ml/min/1.73 sqM); Partial Thromboplastin Time 22.3 sec (22.0-30.0); Potassium 4.9 mmol/L (3.5-5.1); Prothrombin Time 10.2 sec (9.0-12.0); Sodium 140 mmol/L (137-145); Total Bilirubin 0.5 mg/dL (0.2-1.3); Total Protein 7.6 g/dL (6.3-8.2)
[2020-07-07] MEDS ORDERED: methylPREDNISolone SOD SUCCI 125 MG/2 ML VIAL IV STA (15:11)
[2020-07-07] MEDS ORDERED: IPRATROPIUM-ALBUTEROL 3 ML NEB INHALATION PRN (15:11)
[2020-07-07] MEDS ORDERED: ALBUTEROL NEBULIZED 2.5 MG/3 ML INHALATION PRN (15:12)
[2020-07-07] MEDS ORDERED: NALOXONE 0.4 MG/ML 1 ML VIAL IV PRN (16:15)
[2020-07-07] MEDS ORDERED: ACETAMINOPHEN TAB 325 MG TAB PO PRN (16:15)
[2020-07-07] MEDS: IPRATROPIUM-ALBUTEROL 3 ML NEB INHALATION SCH ×2 (16:15→20:38)
[2020-07-07] MEDS: AZITHROMYCIN 500 MG TAB PO SCH (16:17)
--- NOTE | 2020-07-07 16:36 | P.HPIM ---
History of Present Illness H&P Date: 07/07/20 Chief Complaint: Dyspnea 60 year old man with history of COPD with chronic respiratory failure requiring 2L of NC and Hypertension presented with dyspnea. Patient says that he was in his usual state of health, then suddenly, he started to feel very short of breath as he was trying to clean his room. He had been cleaning his room without using his oxygen which he wears normally at night only, but he immediately tried to use his inhalers that he has at home as well as replacing the oxygen. However, he did not recover quickly, even at rest, and therefore called EMS for help. En route, he was noted to be tachypneic to the 40s, hypoxic to the 80s, and unable to answer questions. He was placed on CPAP, and then transitioned to BiPAP when he arrived to the ER. Initial VBG demonstrated hypercarbic respiratory failure with pCO2 of 66, and pH of 7.23. However, upon my interview, patient seemed to have recovered nicely and was able to answer my questions appropriately and provide his history, without any signs of confusion or somnolence. He was on BiPAP 12/6, FiO2 35%, bringing in tidal volumes of ~400cc. Patient denies chest pain, palps, fevers, chills, nausea, vomiting, abdominal pain, syncope/presyncope, dysuria, dyschezia, numbness/weakness. Reports dy spnea. He was recently hospitalized for 3 days about 2 weeks ago in [facility] for similar presentation. Labs demonstrate mild leukocytosis, but are otherwise unremarkable. COVID/Flu were negative. CXR demonstrates emphysema. Review of Systems All Systems reviewed and pertinent positives and negatives noted in HPI, all other symptoms are negative Past Medical History Past Medical History: COPD, Hypertension Additional Past Medical History / Comment(s): Severe COPD with acute hypoxic respiratory failure, home O2 prn, tremors bilateral hands, arthritis bilateral hands. History of Any Multi-Drug Resistant Organisms: None Reported Past Surgical History: Orthopedic Surgery Additional Past Surgical History / Comment(s): left lower leg fracture with surgery/no hardware, colonoscopy Past Anesthesia/Blood Transfusion Reactions: No Reported Reaction Past Psychological History: No Psychological Hx Reported Additional Psychological History / Comment(s): Pt resides alone. He is disabled. He uses no assistive device. He has oxygen that he uses prn and a n ebulizer. Pt is illiterate. Past Alcohol Use History: None Reported Additional Past Alcohol Use History / Comment(s): Pt started smoking in 1975 and quit in 2015. He smoked 3 ppd. Past Drug Use History: None Reported - Past Family History Father Family Medical History: Congestive Heart Failure (CHF) Additional Family Medical History / Comment(s): Father of CHF at the age of 80yrs. Mother Family Medical History: Cancer Additional Family Medical History / Comment(s): Mother from melanoma in her 70s. Medications and Allergies Home Medications Medication Instructions Recorded Confirmed Type Albuterol Nebulized [Ventolin 2.5 mg INHALATION RT-Q4H PRN 07/07/20 07/07/20 History Nebulized] Albuterol Sulfate [Proair Hfa] 1 - 2 puff INHALATION RT-Q6H PRN 07/07/20 07/07/20 History amLODIPine [Norvasc] 10 mg PO DAILY 07/07/20 07/07/20 History lisinopriL [Zestril] 20 mg PO DAILY 07/07/20 07/07/20 History Allergies Allergy/AdvReac Type Severity Reaction Status Date / Time No Known Allergies Allergy Verified 07/07/20 14:03 Physical Exam Osteopathic Statement: *. No significant issues noted on an osteopathic structural exam other than those noted in the History and Physical/Consult. Vitals: Vital Signs Temp Pulse Resp BP Pulse Ox 07/07/20 13:53 112 H 07/07/20 13:52 111 H 24 120/77 98 07/07/20 13:29 117 H 07/07/20 13:14 97.9 F 124 H 24 101/79 100 Intake and Output 07/07/20 07/07/20 07/07/20 06:59 14:59 22:59 Other: Weight 90.537 kg Gen: awake, alert HEENT: normocephalic, atraumatic, good hearing acuity, moist mucous membranes Resp: BiPAP - 12/6, 35%; diminished air exchange, diffuse end expiratory wheezing, mild rales in left posterior base CVS: good distal perfusion x 4, tachycardic, no murmurs, though quiet precordium is difficult to auscultate GI: soft, NTTP, ND : no SPT, no CVAT, nolan catheter not present MSK: no pitting edema, no clubbing Neuro: non-focal, moving all extremities Psych: cooperative, euthymic mood Results CBC & Chem 7: 07/07/20 13:24 07/07/20 13:24 Labs: Abnormal Lab Results - Last 24 Hours (Table) 07/07/20 07/07/20 07/07/20 Range/Units 13:24 13:24 13:24 WBC 10.7 H (3.8-10.6) k/uL Neutrophils # 8.4 H (1.3-7.7) k/uL VBG pH 7.23 L (7.31-7.41) VBG pCO2 66 H (37-51) mmHg Glucose 158 H (74-99) mg/dL ALT 50 H (4-49) U/L Assessment and Plan Assessment: 1. Acute on Chronic Hypoxemic and Hypercarbic Respiratory Failure 2. COPD Exacerbation, GOLD Stage C 3. Hypertension, essential 60 year old man with history of COPD, HTN presented with Acute on chronic hypercarbic respiratory failure secondary to COPD exacerbation, who recovered his mentation well while on BiPAP. Plan: - admit to telemetry - duonebs q6h + duoneb q4h PRN - start symbicort BID - pulm consult, appreciate recs - prednisone 40mg daily/azithromycin 500mg daily - oxygen PRN, wean as tolerated - resume amlodipine/lisinopril Full Code DVT PPx: enoxaparin 40mg daily
--- NOTE | 2020-07-07 17:19 | P.CNPUL ---
History of Present Illness Consult date: 07/07/20 Requesting physician: Shubham Salgado Reason for consult: dyspnea Chief complaint: Dyspnea History of present illness: 60-year-old white male with history of severe COPD on home oxygen usually wears 2 L of oxygen at bedtime, former smoker, quit smoking in 2016, used to smoke up to 3 packs a day for over 40 years. Patient states he was recently hospitalized at [facility] on [address], discharged home 2 weeks ago. Patient presented to the emergency department on 07/07/2020 with severe respiratory distress, dyspnea, he was placed on CPAP by EMS, was given IV steroids, bronchodilators. On arrival to the emergency department patient's respiratory rate was in the 40s, he was hypoxic with a pulse ox of 80%, and unable to answer any questions. At the time of our evaluation respiratory effort did improve, he denied any pain, denied any fever. He denied any contacts with coronavirus, he was tested for coronavirus and was found to be negative. No lower extremity swelling, no central chest pain, no nausea vomiting or diarrhea. His chest x- ray revealed no acute process. EKG showed sinus tachycardia with a rate of 124. Lab data reviewed showing white blood cell count of 10.7, hemoglobin of 16.4, electrolyte and renal profile were unremarkable, venous blood gas was reviewed showing pH of 7.23, pCO2 of 66, and bicarbonate of 27, influenza screen was negative, troponin was less than 0.012. Patient continues on nebulized bronchodilators, he was started on oral prednisone, azithromycin, Symbicort. He is currently off BiPAP support, he is on 3 L of oxygen his pulse ox is 96%, he is afebrile, he is less tachycardic, remains in sinus mechanism, he is able to speak in full sentences. He is awaiting a bed on the regular medical surgical floor. Review of Systems Respiratory: Reports dyspnea Past Medical History Past Medical History: COPD, Hypertension Additional Past Medical History / Comment(s): Severe COPD with acute hypoxic respiratory failure, home O2 prn, tremors bilateral hands, arthritis bilateral hands. History of Any Multi-Drug Resistant Organisms: None Reported Past Surgical History: Orthopedic Surgery Additional Past Surgical History / Comment(s): left lower leg fracture with surgery/no hardware, colonoscopy Past Anesthesia/Blood Transfusion Reactions: No Reported Reaction Past Psychological History: No Psychological Hx Reported Additional Psychological History / Comment(s): Pt resides alone. He is disabled. He uses no assistive device. He has oxygen that he uses prn and a nebulizer. Pt is illiterate. Past Alcohol Use History: None Reported Additional Past Alcohol Use History / Comment(s): Pt started smoking in 1975 and quit in 2015. He smoked 3 ppd. Past Drug Use History: None Reported - Past Family History Father Family Medical History: Congestive Heart Failure (CHF) Additional Family Medical History / Comment(s): Father of CHF at the age of 80yrs. Mother Family Medical History: Cancer Additional Family Medical History / Comment(s): Mother from melanoma in her 70s. Medications and Allergies Home Medications Medication Instructions Recorded Confirmed Type Albuterol Nebulized [Ventolin 2.5 mg INHALATION RT-Q4H PRN 07/07/20 07/07/20 History Nebulized] Albuterol Sulfate [Proair Hfa] 1 - 2 puff INHALATION RT-Q6H PRN 07/07/20 07/07/20 History amLODIPine [Norvasc] 10 mg PO DAILY 07/07/20 07/07/20 History lisinopriL [Zestril] 20 mg PO DAILY 07/07/20 07/07/20 History Allergies Allergy/AdvReac Type Severity Reaction Status Date / Time No Known Allergies Allergy Verified 07/07/20 14:03 Physical Exam Vitals: Vital Signs Temp Pulse Resp BP Pulse Ox 07/07/20 16:26 100 07/07/20 16:16 95 07/07/20 16:09 98.1 F 93 18 121/75 96 07/07/20 15:00 103 H 20 121/81 95 07/07/20 14:30 105 H 22 105/83 98 07/07/20 13:53 112 H 07/07/20 13:52 111 H 24 120/77 98 07/07/20 13:29 117 H 07/07/20 13:14 97.9 F 124 H 24 101/79 100 Intake and Output 07/07/20 07/07/20 07/07/20 06:59 14:59 22:59 Other: Weight 90.537 kg GENERAL EXAM: Alert, very pleasant, 60-year-old white male, on 3 L of oxygen a pulse ox of 96%, comfortable in no apparent distress. HEAD: Normocephalic/atraumatic. EYES: Normal reaction of pupils, equal size. Conjunctiva pink, sclera white. NOSE: Clear with pink turbinates. THROAT: No erythema or exudates. NECK: No masses, no JVD, no thyroid enlargement, no adenopathy. CHEST: No chest wall deformity. Symmetrical expansion. LUNGS: Equal air entry with diminished breath sounds bilaterally CVS: Regular rate and rhythm, normal S1 and S2, no gallops, no murmurs, no rubs ABDOMEN: Soft, nontender. No hepatosplenomegaly, normal bowel sounds, no guarding or rigidity. EXTREMITIES: No clubbing, no edema, no cyanosis, 2+ pulses and upper and lower extremities. MUSCULOSKELETAL: Muscle strength and tone normal. SPINE: No scoliosis or deformity SKIN: No rashes CENTRAL NERVOUS SYSTEM: Alert and oriented -3. No focal deficits, tone is normal in all 4 extremities. PSYCHIATRIC: Alert and oriented -3. Appropriate affect. Intact judgment and insight. Results - Laboratory Findings CBC and BMP: 07/07/20 13:24 07/07/20 13:24 PT/INR, D-dimer PT 10.2 sec (9.0-12.0) 07/07/20 13:24 INR 0.9 (<1.2) 07/07/20 13:24 Abnormal lab findings: Abnormal Labs 07/07/20 07/07/20 07/07/20 13:24 13:24 13:24 WBC 10.7 H Neutrophils # 8.4 H VBG pH 7.23 L VBG pCO2 66 H Glucose 158 H ALT 50 H - Diagnostic Findings Chest x-ray: report reviewed, image reviewed Additional studies: EKG reviewed Assessment and Plan Plan: Assessment: #1. Acute on chronic hypoxic and hypercapnic respiratory failure related to acute exacerbation of chronic obstructive pulmonary disease. Coronavirus and influenza were ruled out. Chest x-ray showed no acute pulmonary process, positive for emphysematous changes #2. Recent hospitalization at [facility] for COPD exacerbation, discharged home 2 weeks ago #3. Chronic hypoxic respiratory failure related to advanced COPD #4. History of hypertension #5. Former smoker, in remission since 2016, carries a 40 year history of smoking, of up to 3 packs per day Plan: Continue current medical treatment, patient is feeling better, he is off BiPAP support, he is able to speak in full sentences, in no acute distress, chest x- ray has been reviewed showing no acute findings, patient was ruled out for COVID 19 and influenza. We'll continue to follow I performed a history & physical examination of the patient and discussed their management with my nurse practitioner, Nereida Vasquez. I reviewed the nurse practitioner's note and agree with the documented findings and plan of care. Lung sounds are positive for diminished breath sounds. The findings and the impression was discussed with the patient. I attest to the documentation by the nurse practitioner. Time with Patient: Greater than 30
[2020-07-07] MEDS: SYMBICORT 160-4.5 MCG INHALER INHALATION SCH (20:37)
[2020-07-08] MEDS: ENOXAPARIN 40 MG/0.4 ML SYRINGE SQ SCH (07:56)
[2020-07-08] MEDS: amLODIPine 10 MG TAB PO SCH (07:56)
[2020-07-08] MEDS: predniSONE 20 MG TAB PO SCH (07:56)
[2020-07-08] MEDS: lisinopriL 20 MG TAB PO SCH (07:56)
[2020-07-08] MEDS: IPRATROPIUM-ALBUTEROL 3 ML NEB INHALATION SCH ×4 (08:44→19:24)
[2020-07-08] MEDS: SYMBICORT 160-4.5 MCG INHALER INHALATION SCH ×2 (09:04→19:24)
[2020-07-08 10:31] LABS: Basophils # (A) 0.01 X 10*3/uL (0.00-0.10); Basophils % (A) 0.1 %; Eosinophils # (A) 0 X 10*3/uL (0.04-0.35); Eosinophils % (A) 0 %; HCT 43.5 % (39.6-50.0); HGB 14.3 g/dL (13.0-17.0); Lymphocytes # (A) 0.55 X 10*3/uL (0.90-5.00); MCH 30.5 pg (27.0-32.0); MCHC 32.9 g/dL (32.0-37.0); MCV 92.8 fL (80.0-97.0); Mean Platelet Volume 10.3 fL (9.5-12.2); Monocytes # (A) 0.08 X 10*3/uL (0.20-1.00); Monocytes % (A) 0.7 %; Neutrophils # (A) 10.21 X 10*3/uL (1.80-7.70); Neutrophils % (A) 93.7 %; Platelet Count 325 X 10*3/uL (140-440); RBC 4.69 X 10*6/uL (4.40-5.60); RDW 12.1 % (11.5-14.5); WBC 10.91 X 10*3/uL (4.50-10.00)
[2020-07-08 11:18] LABS: African American GFR (CKD) 107.2 (60.0-200.0); Anion Gap 9.2 mmol/L (4.00-12.00); Calcium 9.4 mg/dL (8.7-10.3); Carbon Dioxide 23.8 mmol/L (21.6-31.8); Magnesium 2.1 mg/dL (1.5-2.4); Non-African American GFR(CKD) 92.5 (60.0-200.0)
--- NOTE | 2020-07-08 12:25 | P.PN ---
Subjective Progress Note Date: 07/08/20 No new complaints. Oxygenation is improving. Pt now on 3L NC. Objective - Vital Signs Vital signs: Vital Signs Temp 98.0 F 07/08/20 05:23 Pulse 84 07/08/20 11:46 Resp 16 07/08/20 05:23 BP 132/88 07/08/20 05:23 Pulse Ox 96 07/08/20 05:23 Intake & Output 07/07/20 07/08/20 07/08/20 18:59 06:59 18:59 Weight 90.537 kg Other: Voiding Method Toilet # Voids 1 2 - Exam Gen: awake, alert HEENT: normocephalic, atraumatic, good hearing acuity, moist mucous membranes Resp: diminished air exchange, diffuse end expiratory wheezing, mild rales in left posterior base (overall improving) CVS: good distal perfusion x 4, tachycardic, no murmurs, though quiet precordium is difficult to auscultate GI: soft, NTTP, ND : no SPT, no CVAT, nolan catheter not present MSK: no pitting edema, no clubbing Neuro: non-focal, moving all extremities Psych: cooperative, euthymic mood - Labs CBC & Chem 7: 07/08/20 06:46 07/08/20 06:46 Labs: Abnormal Lab Results - Last 24 Hours (Table) 07/07/20 07/07/20 07/07/20 Range/Units 13:24 13:24 13:24 WBC 10.7 H (3.8-10.6) k/uL Immature Gran # (0.00-0.04) X 10*3/uL Neutrophils # 8.4 H (1.3-7.7) k/uL Lymphocytes # (0.90-5.00) X 10*3/uL Monocytes # (0.20-1.00) X 10*3/uL Eosinophils # (0.04-0.35) X 10*3/uL VBG pH 7.23 L (7.31-7.41) VBG pCO2 66 H (37-51) mmHg Glucose 158 H (74-99) mg/dL ALT 50 H (4-49) U/L 07/08/20 07/08/20 Range/Units 06:46 06:46 WBC 10.91 H (3.8-10.6) k/uL Immature Gran # 0.06 H (0.00-0.04) X 10*3/uL Neutrophils # 10.21 H (1.3-7.7) k/uL Lymphocytes # 0.55 L (0.90-5.00) X 10*3/uL Monocytes # 0.08 L (0.20-1.00) X 10*3/uL Eosinophils # 0 L (0.04-0.35) X 10*3/uL VBG pH (7.31-7.41) VBG pCO2 (37-51) mmHg Glucose 146 H (74-99) mg/dL ALT (4-49) U/L Assessment and Plan Assessment: 1. Acute on Chronic Hypoxemic and Hypercarbic Respiratory Failure 2. COPD Exacerbation, GOLD Stage C 3. Hypertension, essential 60 year old man with history of COPD, HTN presented with Acute on chronic hypercarbic respiratory failure secondary to COPD exacerbation, who recovered his mentation well while on BiPAP. Plan: - admit to telemetry - duonebs q6h + duoneb q4h PRN - start symbicort BID - pulm consult, appreciate recs - prednisone 40mg daily/azithromycin 500mg daily - oxygen PRN, wean as tolerated - resume amlodipine/lisinopril Full Code DVT PPx: enoxaparin 40mg daily
[2020-07-08] MEDS: AZITHROMYCIN 500 MG TAB PO SCH (15:28)
--- NOTE | 2020-07-08 16:19 | P.PN ---
Subjective Progress Note Date: 07/08/20 On today's evaluation of 07/08/2020, the patient has no new complaints. The patient is improving. Less short of breath compared to yesterday. No chest pain. No hemoptysis. No pleurisy. No swelling lower extremities. He is on 3 L of oxygen by nasal cannula. He is on IV Solu-Medrol. He is also on bronchodilators [id number]. The mosquera virus/: 19 testing came back negative. Objective - Vital Signs Vital signs: Vital Signs Temp 98.2 F 07/08/20 14:20 Pulse 83 07/08/20 16:13 Resp 17 07/08/20 14:20 BP 95/59 07/08/20 14:20 Pulse Ox 96 07/08/20 14:20 Intake & Output 07/07/20 07/08/20 07/08/20 18:59 06:59 18:59 Weight 90.537 kg Other: Voiding Method Toilet # Voids 1 2 1 - Exam GENERAL EXAM: Alert, very pleasant, 60-year-old white male, on 3 L of oxygen a pulse ox of 96%, comfortable in no apparent distress. HEAD: Normocephalic/atraumatic. EYES: Normal reaction of pupils, equal size. Conjunctiva pink, sclera white. NOSE: Clear with pink turbinates. THROAT: No erythema or exudates. NECK: No masses, no JVD, no thyroid enlargement, no adenopathy. CHEST: No chest wall deformity. Symmetrical expansion. LUNGS: Equal air entry with diminished breath sounds bilaterally CVS: Regular rate and rhythm, normal S1 and S2, no gallops, no murmurs, no rubs ABDOMEN: Soft, nontender. No hepatosplenomegaly, normal bowel sounds, no guarding or rigidity. EXTREMITIES: No clubbing, no edema, no cyanosis, 2+ pulses and upper and lower extremities. MUSCULOSKELETAL: Muscle strength and tone normal. SPINE: No scoliosis or deformity SKIN: No rashes CENTRAL NERVOUS SYSTEM: Alert and oriented -3. No focal deficits, tone is normal in all 4 extremities. PSYCHIATRIC: Alert and oriented -3. Appropriate affect. Intact judgment and insight. - Labs CBC & Chem 7: 07/08/20 06:46 07/08/20 06:46 Labs: Abnormal Lab Results - Last 24 Hours (Table) 07/08/20 07/08/20 Range/Units 06:46 06:46 WBC 10.91 H (4.50-10.00) X 10*3/uL Immature Gran # 0.06 H (0.00-0.04) X 10*3/uL Neutrophils # 10.21 H (1.80-7.70) X 10*3/uL Lymphocytes # 0.55 L (0.90-5.00) X 10*3/uL Monocytes # 0.08 L (0.20-1.00) X 10*3/uL Eosinophils # 0 L (0.04-0.35) X 10*3/uL Glucose 146 H (70-110) mg/dL Microbiology - Last 24 Hours (Table) 07/07/20 13:24 Blood Culture - Preliminary Blood No Growth after 24 hours Assessment and Plan Plan: #1. Acute on chronic hypoxic and hypercapnic respiratory failure related to acute exacerbation of chronic obstructive pulmonary disease. Coronavirus and influenza were ruled out. Chest x-ray showed no acute pulmonary process, positive for emphysematous changes #2. Recent hospitalization at [facility] for COPD exacerbation, d ischarged home 2 weeks ago #3. Chronic hypoxic respiratory failure related to advanced COPD #4. History of hypertension #5. Former smoker, in remission since 2016, carries a 40 year history of s moking, of up to 3 packs per day Plan Clinically improving Continue same antibiotic coverage with Zithromax 500 mg by mouth daily We'll transition this patient to prednisone burst taper as of today Home O2 Home nebulizer May benefit from outpatient pulmonary function testing in addition to maintena nce after medication such as Trelegy or Anoro. We'll be glad to follow him up on outpatient basis
[2020-07-09] MEDS: IPRATROPIUM-ALBUTEROL 3 ML NEB INHALATION SCH ×2 (08:11→11:05)
[2020-07-09] MEDS: SYMBICORT 160-4.5 MCG INHALER INHALATION SCH (08:11)
[2020-07-09 08:26] VITALS: BP 111/66; RESP 18; TEMP 98.3
[2020-07-09] MEDS: lisinopriL 20 MG TAB PO SCH (08:37)
[2020-07-09] MEDS: predniSONE 20 MG TAB PO SCH (08:37)
[2020-07-09] MEDS: amLODIPine 10 MG TAB PO SCH (08:37)
[2020-07-09] MEDS: ENOXAPARIN 40 MG/0.4 ML SYRINGE SQ SCH (08:38)
[2020-07-09 11:07] VITALS: PULSE 80
--- NOTE | 2020-07-09 12:18 | P.DS ---
Providers Date of admission: 07/07/20 15:11 Expected date of discharge: 07/09/20 Attending physician: Shubham Salgado MD Consults: 07/07/20 15:11 Consult Physician Routine Consulting Provider: Sunny Hicks Consult Reason/Comments: COPD Do you want consulting provider notified?: Yes Primary care physician: Stated None Hospital Course: 1. Acute on Chronic Hypoxemic and Hypercarbic Respiratory Failure 2. COPD Exacerbation, GOLD Stage C 3. Hypertension, essential 60 year old man with history of COPD, HTN presented with Acute on chronic hypercarbic respiratory failure secondary to COPD exacerbation, who recovered his mentation well while on BiPAP. He was titrated down to 3L, and by the following day, his energy levels returned to normal. However, he still had some wheezing in his lung exam, so he was kept for total of 2 nights. By day of discharge he was doing well with no wheezing on lung exam, and at his 2L of NC baseline. He was discharged home with instructions to keep his oxygen on during the day and at night. He rec'd prescription for 3 more days of prednisone/azithromycin. He was also started on a new medication of symbicort BID. He is to follow up with PCP and pulmonology on discharge. I spent 31 minutes preparing this discharge. Patient Condition at Discharge: Good Plan - Discharge Summary Discharge Rx Participant: No New Discharge Prescriptions: New predniSONE [Deltasone] 40 mg PO DAILY #6 tab Budesonide-Formot 160-4.5 Mcg [Symbicort 160-4.5 Mcg Inhaler] 2 puff INHALATION RT-BID #1 inhaler Azithromycin [Zithromax] 500 mg PO Q24H #3 tab Continue lisinopriL [Zestril] 20 mg PO DAILY amLODIPine [Norvasc] 10 mg PO DAILY Albuterol Sulfate [Proair Hfa] 1 - 2 puff INHALATION RT-Q6H PRN PRN Reason: Shortness Of Breath Albuterol Nebulized [Ventolin Nebulized] 2.5 mg INHALATION RT-Q4H PRN PRN Reason: Shortness Of Breath Discharge Medication List Albuterol Nebulized [Ventolin Nebulized] 2.5 mg INHALATION RT-Q4H PRN 07/07/20 [History] Albuterol Sulfate [Proair Hfa] 1 - 2 puff INHALATION RT-Q6H PRN 07/07/20 [History] amLODIPine [Norvasc] 10 mg PO DAILY 07/07/20 [History] lisinopriL [Zestril] 20 mg PO DAILY 07/07/20 [History] Azithromycin [Zithromax] 500 mg PO Q24H #3 tab 07/09/20 [Rx] Budesonide-Formot 160-4.5 Mcg [Symbicort 160-4.5 Mcg Inhaler] 2 puff INHALATION RT-BID #1 inhaler 07/09/20 [Rx] predniSONE [Deltasone] 40 mg PO DAILY #6 tab 07/09/20 [Rx] Follow up Appointment(s)/Referral(s): None,Stated [Primary Care Provider] - 1-2 days Lucila Burnette MD [STAFF PHYSICIAN] - 08/13/20 10:30 am (Please arrive 15-20 minutes early to fill out paperwork) Patient Instructions/Handouts: COPD (Chronic Obstructive Pulmonary Disease) (DC) Discharge Disposition: HOME SELF-CARE
--- NOTE | 2020-07-09 15:52 | P.PN ---
Subjective Progress Note Date: 07/09/20 On 07/09/2020, the patient continues to improve. No major respiratory difficulties. He is Covid 19 testing came back negative. The patient was treated with a combination of bronchodilators and IV Solu Medrol. We are going to discontinue the IV Solu Medrol start the patient prednisone burst taper. He denies having any chest pain. No altered mentation. He is a nonsmoker for now. He does have home oxygen and he does have also home nebulizer medication. I insisted that he needs to come into our office for further follow-up regarding his COPD treatment. He will be discharged home today. Objective - Vital Signs Vital signs: Vital Signs Temp 98.3 F 07/09/20 07:19 Pulse 80 07/09/20 11:21 Resp 18 07/09/20 07:19 BP 111/66 07/09/20 07:19 Pulse Ox 98 07/09/20 07:19 Intake & Output 07/08/20 07/09/20 07/09/20 18:59 06:59 18:59 Other: # Voids 1 2 - Exam GENERAL EXAM: Alert, very pleasant, 60-year-old white male, on 3 L of oxygen a pulse ox of 96%, comfortable in no apparent distress. HEAD: Normocephalic/atraumatic. EYES: Normal reaction of pupils, equal size. Conjunctiva pink, sclera white. NOSE: Clear with pink turbinates. THROAT: No erythema or exudates. NECK: No masses, no JVD, no thyroid enlargement, no adenopathy. CHEST: No chest wall deformity. Symmetrical expansion. LUNGS: Equal air entry with diminished breath sounds bilaterally CVS: Regular rate and rhythm, normal S1 and S2, no gallops, no murmurs, no rubs ABDOMEN: Soft, nontender. No hepatosplenomegaly, normal bowel sounds, no guarding or rigidity. EXTREMITIES: No clubbing, no edema, no cyanosis, 2+ pulses and upper and lower extremities. MUSCULOSKELETAL: Muscle strength and tone normal. SPINE: No scoliosis or deformity SKIN: No rashes CENTRAL NERVOUS SYSTEM: Alert and oriented -3. No focal deficits, tone is normal in all 4 extremities. PSYCHIATRIC: Alert and oriented -3. Appropriate affect. Intact judgment and insight. - Labs CBC & Chem 7: 07/08/20 06:46 07/08/20 06:46 Labs: Microbiology - Last 24 Hours (Table) 07/07/20 14:58 Blood Culture - Preliminary Blood No Growth after 24 hours 07/07/20 13:24 Blood Culture - Preliminary Blood No Growth after 24 hours Assessment and Plan Plan: #1. Acute on chronic hypoxic and hypercapnic respiratory failure related to acute exacerbation of chronic obstructive pulmonary disease. Coronavirus and influenza were ruled out. Chest x-ray showed no acute pulmonary process, positive for emphysematous changes #2. Recent hospitalization at [facility] for COPD exacerbation, discharged home 2 weeks ago #3. Chronic hypoxic respiratory failure related to advanced COPD #4. History of hypertension #5. Former smoker, in remission since 2016, carries a 40 year history of smoking, of up to 3 packs per day Plan Discharge the patient home today Prednisone burst taper starting with 40 mg to be stable biochemically comes in to 4 days Will need outpatient follow-up Home nebulizer May benefit from outpatient pulmonary function testing in addition to maintenance after medication such as Trelegy or Anoro. We'll be glad to follow him up on outpatient basis
== END 2020-07-09 13:29 | disposition home health service (06) | DRG 190 ==
LOC: EC 13:11 → 4SSUR 15:11
PROVIDERS: ADMIT Internal Medicine; ATTEND Internal Medicine
PROC: 5A09357 Assistance with Respiratory Ventilation, Less than 24 Consecutive Hours, Continuous Positive Airway Pressure (ICD-10-PCS; principal; 2020-07-07)
DX: J43.9 Emphysema, unspecified (principal); J96.21 Acute and chronic respiratory failure with hypoxia; J96.22 Acute and chronic respiratory failure with hypercapnia; I10 Essential (primary) hypertension; M19.041 Primary osteoarthritis, right hand; Z20.822 Contact with and (suspected) exposure to COVID-19; M19.042 Primary osteoarthritis, left hand; Z79.899 Other long term (current) drug therapy; Z80.8 Family history of malignant neoplasm of other organs or systems; Z82.49 Family history of ischemic heart disease and other diseases of the circulatory system; Z87.891 Personal history of nicotine dependence; Z99.81 Dependence on supplemental oxygen; Z98.890 Other specified postprocedural states
CPT/HCPCS: 36415; 71045; 80048; 80053; 82803; 83605; 83735; 83880; 84484; 85025; 85610; 85730; 87040; 87502; 87635; 93005; 94640; 94660

== ENCOUNTER 2022-08-13 01:00 | Inpatient (IN) | payer OTHER ==
[2022-08-13] MEDS ORDERED: IPRATROPIUM 0.5 MG/2.5 ML NEBU INHALATION STA (01:12)
[2022-08-13] MEDS ORDERED: ALBUTEROL NEBULIZED 2.5 MG/3 ML INHALATION STA (01:12)
[2022-08-13] MEDS ORDERED: DEXAMETHASONE SOD PHOSPHATE 10 MG/ML 1 ML VIAL IV STA (01:12)
--- NOTE | 2022-08-13 01:14 | ED ---
General Adult HPI - General Chief complaint: Shortness of Breath Stated complaint: sob Time Seen by Provider: 08/13/22 01:03 Source: EMS Mode of arrival: EMS Limitations: no limitations - History of Present Illness Initial comments: Dictation was produced using [employer] dictation software. please excuse any grammatical, word or spelling errors. Chief Complaint: 62-year-old male presents emergency department for shortness of breath History of Present Illness: 62-year-old male past medical history of COPD and CHF. Patient has been having shortness of breath for the last 5 hours. Patient ran out of his inhaler for one day. 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 States that he has remote history of smoking but does not smoke anymore. EMS provided patient with a breathing treatment initially which significantly improved symptoms symptoms. As reports that patient was hypoxic on initial dilation. Patient has any fevers. States that his cough seems to be baseline. No pain complaints The ROS documented in this emergency department record has been reviewed and confirmed by me. Those systems with pertinent positive or negative responses have been documented in the HPI. All other systems are other negative and/or noncontributory. PHYSICAL EXAM: General Impression: Alert and oriented x3, acute dyspneic HEENT: Normocephalic atraumatic, extra-ocular movements intact, pupils equal and reactive to light bilaterally, mucous membranes moist. Cardiovascular: Heart regular rate and rhythm Chest: Breathing with pursed lips, mildly tachypneic, poor air exchange with auscultation of the lungs Abdomen: abdomen soft, non-tender, non-distended, no organomegaly Musculoskeletal: Pulses present and equal in all extremities, no peripheral edema Motor: no focal deficits noted Neurological: CN II-XII grossly intact, no focal motor or sensory deficits noted Skin: Intact with no visualized rashes Psych: Normal affect and mood ED course: 62-year-old male presents emergency Department clinical presentation consistent with COPD exacerbation. Vital signs upon arrival are within acceptable limits. Nursing notes and chart review was performed EKG interpreted by me: Ventricular rate 100, sinus tachycardia,. 151, QRS 86, QTC 389. No MD prolongation, no QTC prolongation, no ST or T-wave changes noted. Overall, this EKG is unremarkable Was pt. sent in by a medical professional or institution (, PA, CERTIFIED CODER, urgent care, hospital, or custodial...) When possible be specific @ -No Did you speak to anyone other than the patient for history (EMS, parent, family, police, friend...)? What history was obtained from this source @ -EMS Did you review nursing and triage notes (agree or disagree)? Why? @ -I reviewed and agree with nursing and triage notes Were old charts reviewed (outside hosp., previous admission, EMS record, old EKG, old radiological studies, urgent care reports/EKG's, custodial records)? Report findings @ -No old charts were reviewed Differential Diagnosis (chest pain, altered mental status, abdominal pain women, abdominal pain men, vaginal bleeding, musculoskeletal, weakness, fever, dyspnea, syncope, headache, dizziness, GI bleed, back pain, seizure, CVA, palpatations, mental health)? @ -Differential Dyspnea: Coronary syndrome, arrhythmia, tamponade, asthma, COPD, pulmonary embolism, pneumonia, pneumothorax, pulmonary effusion, anaphylaxis, diabetic ketoacidosis, flailed chest, pulmonary contusion, diaphragmatic rupture, anemia, neuromuscular, this is not meant to be an all-inclusive list. EKG interpreted by me (3pts min.). @ -As above X-rays interpreted by me (1pt min.). @ -Nonacute CT interpreted by me (1pt min.). @ -None done U/S interpreted by me (1pt. min.). @ -None done What testing was considered but not performed or refused? (CT, X-rays, U/S, labs)? Why? @ -None What meds were considered but not given or refused? Why? @ -None Did you discuss the management of the patient with other professionals (professionals i.e. , PA, CERTIFIED CODER, lab, RT, psych nurse, social media community manager, drama critic, teacher, military source operations officer, case management assistant)? Give summary @ -discussed with [facility] for admission Was smoking cessation discussed for >3mins.? @ -No Was critical care preformed (if so, how long)? @ -No Were there social determinants of health that impacted care today? How? (Homelessness, low income, unemployed, alcoholism, drug addiction, transportation, low edu. Level, literacy, decrease access to med. care, retirement, rehab)? @ -No Was there de-escalation of care discussed even if they declined (Discuss DNR or withdrawal of care, Hospice)? DNR status @ -No What co-morbidities impacted this encounter? (DM, HTN, Smoking, COPD, CAD, Cancer, CVA, ARF, Chemo, Hep., AIDS, mental health diagnosis, sleep apnea, morbid obesity)? @ -None Was patient admitted / discharged? Hospital course, mention meds given and route , prescriptions, significant lab abnormalities, going to OR and other pertinent info. @ -62-year-old male presents with COPD exacerbation. Patient was hypoxic per EMS. Patient had poor air exchange on initial evaluation is given breathing treatment. Patient's symptoms improved however he does have high risk features with hypoxia and potential for respiratory failure if discharged home. 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 Is given Decadron. Patient admitted to hospital with c onsultation of pulmonology. Undiagnosed new problem with uncertain prognosis? @ -No Drug Therapy requiring intensive monitoring for toxicity (Heparin, Nitro, Insulin, Cardizem)? @ -No Were any procedures done? @ -No Diagnosis/symptom? Acute, or Chronic, or Acute on Chronic? Uncomplicated (without systemic symptoms) or Complicated (systemic symptoms)? @ -1. Acute COPD exacerbation Side effects of treatment? @ -No Exacerbation, Progression, or Severe Exacerbation? @ -Yes, exacerbation Poses a threat to life or bodily function? How? (Chest pain, [place], [place], pneumonia, PE, COPD, DKA, ARF, appy, cholecystitis, CVA, Diverticulitis, Homicidal, Suicidal, threat to staff... and all critical care pts) @ -yes - Related Data Home Medications Medication Instructions Recorded Confirmed Albuterol Nebulized [Ventolin 2.5 mg INHALATION RT-Q4H PRN 07/07/20 07/07/20 Nebulized] Albuterol Sulfate [Proair Hfa] 1 - 2 puff INHALATION RT-Q6H PRN 07/07/20 07/07/20 amLODIPine [Norvasc] 10 mg PO DAILY 07/07/20 07/07/20 lisinopriL [Zestril] 20 mg PO DAILY 07/07/20 07/07/20 Previous Rx's Medication Instructions Recorded Azithromycin [Zithromax] 500 mg PO Q24H #3 tab 07/09/20 Budesonide-Formot 160-4.5 Mcg 2 puff INHALATION RT-BID #1 inhaler 07/09/20 [Symbicort 160-4.5 Mcg Inhaler] predniSONE 0 mg PO DIRECTED 16 Days #40 tab 07/09/20 Allergies Allergy/AdvReac Type Severity Reaction Status Date / Time No Known Allergies Allergy Verified 07/07/20 14:03 Review of Systems ROS Statement: Those systems with pertinent positive or pertinent negative responses have been documented in the HPI. ROS Other: All systems not noted in ROS Statement are negative. Past Medical History Past Medical History: COPD, Hypertension Additional Past Medical History / Comment(s): Severe COPD with acute hypoxic respiratory failure, home O2 prn, tremors bilateral hands, arthritis bilateral hands. History of Any Multi-Drug Resistant Organisms: None Reported Past Surgical History: Orthopedic Surgery Additional Past Surgical History / Comment(s): left lower leg fracture with surgery/no hardware, colonoscopy Past Anesthesia/Blood Transfusion Reactions: No Reported Reaction Past Psychological History: No Psychological Hx Reported Smoking Status: Former smoker Past Alcohol Use History: None Reported Past Drug Use History: None Reported - Past Family History Father Family Medical History: Congestive Heart Failure (CHF) Additional Family Medical History / Comment(s): Father of CHF at the age of 80yrs. Mother Family Medical History: Cancer Additional Family Medical History / Comment(s): Mother from melanoma in her 70s. General Exam Limitations: no limitations Course Vital Signs 08/13/22 08/13/22 08/13/22 01:01 01:10 01:31 Temperature 98.0 F Pulse Rate 98 100 Respiratory 20 20 Rate Blood Pressure 132/79 126/94 O2 Sat by Pulse 97 95 Oximetry 08/13/22 08/13/22 08/13/22 01:50 02:00 02:06 Temperature Pulse Rate 104 H 98 90 Respiratory 20 Rate Blood Pressure 126/94 O2 Sat by Pulse 98 Oximetry 08/13/22 08/13/22 08/13/22 02:10 02:30 03:00 Temperature Pulse Rate 102 H 106 H 85 Respiratory 20 Rate Blood Pressure 133/84 O2 Sat by Pulse 94 L Oximetry Medical Decision Making - Lab Data Result diagrams: 08/13/22 01:15 08/13/22 01:15 Lab Results 08/13/22 08/13/22 08/13/22 Range/Units 01:15 01:15 01:15 WBC 11.6 H (3.8-10.6) k/uL RBC 5.30 (4.30-5.90) m/uL Hgb 16.3 (13.0-17.5) gm/dL Hct 49.8 (39.0-53.0) % MCV 94.0 (80.0-100.0) fL MCH 30.8 (25.0-35.0) pg MCHC 32.7 (31.0-37.0) g/dL RDW 12.5 (11.5-15.5) % Plt Count 265 (150-450) k/uL MPV 8.5 Neutrophils % 85 % Lymphocytes % 8 % Monocytes % 5 % Eosinophils % 1 % Basophils % 0 % Neutrophils # 9.8 H (1.3-7.7) k/uL Lymphocytes # 0.9 L (1.0-4.8) k/uL Monocytes # 0.6 (0-1.0) k/uL Eosinophils # 0.1 (0-0.7) k/uL Basophils # 0.0 (0-0.2) k/uL Sodium 139 (137-145) mmol/L Potassium 4.8 (3.5-5.1) mmol/L Chloride 98 (98-107) mmol/L Carbon Dioxide 31 H (22-30) mmol/L Anion Gap 10 mmol/L BUN 15 (9-20) mg/dL Creatinine 0.67 (0.66-1.25) mg/dL Est GFR (CKD-EPI)AfAm >90 (>60 ml/min/1.73 sqM) Est GFR (CKD-EPI)NonAf >90 (>60 ml/min/1.73 sqM) Glucose 124 H (74-99) mg/dL Calcium 8.9 (8.4-10.2) mg/dL Troponin I <0.012 (0.000-0.034) ng/mL NT-Pro-B Natriuret Pep pg/mL Influenza Type A (PCR) (Not Detectd) Influenza Type B (PCR) (Not Detectd) RSV (PCR) (Not Detectd) SARS-CoV-2 (PCR) (Not Detectd) 08/13/22 08/13/22 Range/Units 01:15 02:37 WBC (3.8-10.6) k/uL RBC (4.30-5.90) m/uL Hgb (13.0-17.5) gm/dL Hct (39.0-53.0) % MCV (80.0-100.0) fL MCH (25.0-35.0) pg MCHC (31.0-37.0) g/dL RDW (11.5-15.5) % Plt Count (150-450) k/uL MPV Neutrophils % % Lymphocytes % % Monocytes % % Eosinophils % % Basophils % % Neutrophils # (1.3-7.7) k/uL Lymphocytes # (1.0-4.8) k/uL Monocytes # (0-1.0) k/uL Eosinophils # (0-0.7) k/uL Basophils # (0-0.2) k/uL Sodium (137-145) mmol/L Potassium (3.5-5.1) mmol/L Chloride (98-107) mmol/L Carbon Dioxide (22-30) mmol/L Anion Gap mmol/L BUN (9-20) mg/dL Creatinine (0.66-1.25) mg/dL Est GFR (CKD-EPI)AfAm (>60 ml/min/1.73 sqM) Est GFR (CKD-EPI)NonAf (>60 ml/min/1.73 sqM) Glucose (74-99) mg/dL Calcium (8.4-10.2) mg/dL Troponin I (0.000-0.034) ng/mL NT-Pro-B Natriuret Pep 32 pg/mL Influenza Type A (PCR) Not Detected (Not Detectd) Influenza Type B (PCR) Not Detected (Not Detectd) RSV (PCR) Not Detected (Not Detectd) SARS-CoV-2 (PCR) Not Detected (Not Detectd) Disposition Clinical Impression: COPD exacerbation Disposition: ADMITTED IP TO THIS HOSP Condition: Fair Referrals: None,Stated [Primary Care Provider] - 1-2 days Decision Time: 03:48
--- NOTE | 2022-08-13 01:25 | XR ---
EXAMINATION TYPE: XR chest 2V DATE OF EXAM: 08/13/2022 COMPARISON: NONE HISTORY: Short of breath TECHNIQUE: 2 views FINDINGS: Heart and mediastinum are normal. Lungs are clear. Diaphragm is normal. Bony thorax appears normal. IMPRESSION: Normal chest.
[2022-08-13 01:41] LABS: Basophils % (A) 0 %; Eosinophils # (A) 0.1 k/uL (0-0.7); Eosinophils % (A) 1 %; HCT 49.8 % (39.0-53.0); HGB 16.3 gm/dL (13.0-17.5); Lymphocytes # (A) 0.9 k/uL (1.0-4.8); Lymphocytes % (A) 8 %; MCH 30.8 pg (25.0-35.0); MCHC 32.7 g/dL (31.0-37.0); Mean Platelet Volume 8.5; Monocytes # (A) 0.6 k/uL (0-1.0); Monocytes % (A) 5 %; Neutrophils # (A) 9.8 k/uL (1.3-7.7); Neutrophils % (A) 85 %; Platelet Count 265 k/uL (150-450); RDW 12.5 % (11.5-15.5); WBC 11.6 k/uL (3.8-10.6)
[2022-08-13 01:47] LABS: African American GFR (CKD) >90 (>60 ml/min/1.73 sqM); Anion Gap 10 mmol/L; Blood Urea Nitrogen 15 mg/dL (9-20); Calcium 8.9 mg/dL (8.4-10.2); Carbon Dioxide 31 mmol/L (22-30); Chloride 98 mmol/L (98-107); Glucose 124 mg/dL (74-99); Non-African American GFR(CKD) >90 (>60 ml/min/1.73 sqM); Potassium 4.8 mmol/L (3.5-5.1); Sodium 139 mmol/L (137-145)
[2022-08-13] MEDS ORDERED: NALOXONE 0.4 MG/ML 1 ML VIAL IVP PRN (03:48)
[2022-08-13] MEDS ORDERED: predniSONE 20 MG TAB PO SCH (09:00)
[2022-08-13] MEDS: ALBUTEROL NEBULIZED 2.5 MG/3 ML INHALATION SCH ×4 (09:24→20:21)
[2022-08-13] MEDS: IPRATROPIUM 0.5 MG/2.5 ML NEBU INHALATION SCH ×4 (09:24→20:21)
[2022-08-13] MEDS: AZITHROMYCIN 500 MG TAB PO SCH (09:52)
--- NOTE | 2022-08-13 12:33 | P.CNPUL ---
History of Present Illness Consult date: 08/13/22 Requesting physician: Quentin Dowd Reason for consult: dyspnea, COPD Chief complaint: Shortness of breath History of present illness: This is a 62-year-old male patient with a known history of previous heavy chronic tobacco dependence of approximately 40 years however quit in 2016, oxygen dependent chronic obstructive pulmonary disease, hypertension. He presented here to the emergency room approximately 1:00 this morning with an acute episode of shortness of breath that have been going on for approximately 5 hours prior. He had ran out of his inhaler for one day. He denied any fever or chills. No significant cough or congestion. Chest x-ray revealed no acute pulmonary process. EKG revealed sinus rhythm with no significant ST or T wave abnormalities. White count 11.6. Hemoglobin 16.3. Sodium 139. Potassium 4.8. Bicarb 31. BUN 15. Creatinine 0.67. Glucose 124. Influenza screen negative. RSV screen negative. COVID-19 screen negative. He is seen today in consultati on on the regular medical floor. He is sitting up in bed. Awake and alert in no acute distress. He is maintaining O2 saturations in the 90s on 3 L/m per nasal cannula. Dyspneic with conversation. Dyspneic with minimal exertion. Review of Systems REVIEW OF SYSTEMS: CONSTITUTIONAL: Denies any recent significant weight loss or weight gain. EYES: Denies change in vision. EARS, NOSE, MOUTH, THROAT: Denies headaches, denies sore throat. CARDIOVASCULAR: Denies chest pain, palpitations or syncopal episodes. RESPIRATORY: Positive for shortness of breath, cough, congestion no hemoptysis. GASTROINTESTINAL: Denies change in appetite, denies abdominal pain GENITOURINARY: Denies hematuria, denies infections. MUSKULOSKELETAL: Denies pain, denies swelling. INTEGUMENTARY: Denies rash, denies eczema. NEUROLOGICAL: Denies recent memory loss, no recent seizure activity. PSYCHIATRIC: Denies anxiety, denies depression. HEMATOLOGIC/LYMPHATIC: Denies anemia, denies enlarged lymph nodes. Past Medical History Past Medical History: COPD, Hypertension Additional Past Medical History / Comment(s): Severe COPD with acute hypoxic respiratory failure, home O2 prn, tremors bilateral hands, arthritis bilateral hands. History of Any Multi-Drug Resistant Organisms: None Reported Past Surgical History: Orthopedic Surgery Additional Past Surgical History / Comment(s): left lower leg fracture with surgery/no hardware, colonoscopy Past Anesthesia/Blood Transfusion Reactions: No Reported Reaction Past Psychological History: No Psychological Hx Reported Additional Psychological History / Comment(s): Pt resides alone. He is disabled. He uses no assistive device. He has oxygen that he uses prn and a nebulizer. Pt is illiterate. Smoking Status: Former smoker Past Alcohol Use History: None Reported Additional Past Alcohol Use History / Comment(s): Pt started smoking in 1975 and quit in 2015. He smoked 3 ppd. Past Drug Use History: None Reported - Past Family History Father Family Medical History: Congestive Heart Failure (CHF) Additional Family Medical History / Comment(s): Father of CHF at the age of 80yrs. Mother Family Medical History: Cancer Additional Family Medical History / Comment(s): Mother from melanoma in her 70s. Medications and Allergies Home Medications Medication Instructions Recorded Confirmed Type Albuterol Nebulized [Ventolin 2.5 mg INHALATION RT-Q4H PRN 07/07/20 08/13/22 History Nebulized] Albuterol Sulfate [Proair Hfa] 1 - 2 puff INHALATION RT-Q6H PRN 07/07/20 08/13/22 History amLODIPine [Norvasc] 5 mg PO DAILY 07/07/20 08/13/22 History Tiotropium [place] [Spiriva] 2 puff INHALATION RT-DAILY 08/13/22 08/13/22 Hist ory Allergies Allergy/AdvReac Type Severity Reaction Status Date / Time No Known Allergies Allergy Verified 08/13/22 10:34 Physical Exam Vitals: Vital Signs Temp Pulse Pulse Resp BP BP Pulse Ox 08/13/22 12:20 100 08/13/22 12:06 100 08/13/22 09:39 102 H 08/13/22 09:30 95 08/13/22 09:24 102 H 08/13/22 07:00 98 F 90 20 114/63 94 L 08/13/22 05:41 20 08/13/22 04:47 98.0 F 100 18 140/90 93 L 08/13/22 04:00 98.6 F 94 16 135/85 95 08/13/22 03:00 85 20 133/84 94 L 08/13/22 02:30 106 H 08/13/22 02:10 102 H 08/13/22 02:06 90 08/13/22 02:00 98 20 126/94 98 08/13/22 01:50 104 H 08/13/22 01:31 100 08/13/22 01:10 20 126/94 95 08/13/22 01:01 98.0 F 98 20 132/79 97 Intake and Output 08/12/22 08/13/22 08/13/22 22:59 06:59 14:59 Intake Total 250 Balance 250 Intake: Oral 250 Other: Voiding Method Toilet # Voids 1 Weight 97.522 kg GENERAL EXAM: Alert, pleasant 62-year-old male, on 3 L nasal cannula, fairly comfortable in no apparent distress. HEAD: Normocephalic. EYES: Normal reaction of pupils, equal size. NOSE: Clear with pink turbinates. THROAT: No erythema or exudates. NECK: No masses, no JVD. CHEST: No chest wall deformity. LUNGS: Equal air entry with bilateral wheezing, diminished throughout. CVS: S1 and S2 normal with no audible murmur, regular rhythm. ABDOMEN: No hepatosplenomegaly, normal bowel sounds, no guarding or rigidity. SPINE: No scoliosis or deformity SKIN: No rashes CENTRAL NERVOUS SYSTEM: No focal deficits, tone is normal in all 4 extremities. EXTREMITIES: There is no peripheral edema. No clubbing, no cyanosis. Peripheral pulses are intact. Results - Laboratory Findings CBC and BMP: 08/13/22 01:15 08/13/22 01:15 Abnormal lab findings: Abnormal Labs 08/13/22 08/13/22 01:15 01:15 WBC 11.6 H Neutrophils # 9.8 H Lymphocytes # 0.9 L Carbon Dioxide 31 H Glucose 124 H - Diagnostic Findings Chest x-ray: image reviewed Assessment and Plan Assessment: Acute on chronic hypoxemic respiratory failure secondary to an acute exa cerbation of chronic obstructive pulmonary disease History of 40+ years of 3 pack per day smoking history however quit in 2016 Hypertension Plan: The patient was seen and evaluated Chest x-ray, labs and medications reviewed Initiate IV Solu-Medrol 60 mg every 6 hours Initiate Symbicort, albuterol/Spiriva Would benefit from follow-up in the office post discharge We will continue to follow and make further recommendations based on his clinical status I have personally seen and examined the patient, performed the documentation and the assessment and plan as written. Number of minutes spent on the visit: 20.
[2022-08-13] MEDS: methylPREDNISolone SOD SUCCI 125 MG/2 ML VIAL IV SCH ×2 (17:56→23:18)
--- NOTE | 2022-08-13 20:19 | P.HPIM ---
History of Present Illness H&P Date: 08/13/22 Chief Complaint: Shortness of Breath 62-year-old male past medical history of COPD and CHF. Patient has been having shortness of breath for the last 5 hours. Patient ran out of his inhaler for one day. 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 States that he has remote history of smoking but does not smoke anymore. EMS provided patient with a breathing treatment initially which significantly improved symptoms symptoms. As reports that patient was hypoxic on initial dilation. Patient has any fevers. States that his cough seems to be baseline. No pain complaints Chest x-ray revealed no acute pulmonary process. EKG revealed sinus rhythm with no significant ST or T wave abnormalities. White count 11.6. Hemoglobin 16.3. Sodium 139. Potassium 4.8. Bicarb 31. BUN 15. Creatinine 0.67. Glucose 124. Influenza screen negative. RSV screen negative. COVID-19 screen negative. Review of Systems CONSTITUTIONAL: Denies any recent significant weight loss or weight gain. EYES: Denies change in vision. EARS, NOSE, MOUTH, THROAT: Denies headaches, denies sore throat. CARDIOVASCULAR: Denies chest pain, palpitations or syncopal episodes. RESPIRATORY: Positive for shortness of breath, cough, congestion no hemoptysis. GASTROINTESTINAL: Denies change in appetite, denies abdominal pain GENITOURINARY: Denies hematuria, denies infections. MUSKULOSKELETAL: Denies pain, denies swelling. INTEGUMENTARY: Denies rash, denies eczema. NEUROLOGICAL: Denies recent memory loss, no recent seizure activity. PSYCHIATRIC: Denies anxiety, denies depression. HEMATOLOGIC/LYMPHATIC: Denies anemia, denies enlarged lymph nodes. Past Medical History Past Medical History: COPD, Hypertension Additional Past Medical History / Comment(s): Severe COPD with acute hypoxic respiratory failure, home O2 prn, tremors bilateral hands, arthritis bilateral hands. History of Any Multi-Drug Resistant Organisms: None Reported Past Surgical History: Orthopedic Surgery Additional Past Surgical History / Comment(s): left lower leg fracture with surgery/no hardware, colonoscopy Past Anesthesia/Blood Transfusion Reactions: No Reported Reaction Past Psychological History: No Psychological Hx Reported Additional Psychological History / Comment(s): Pt resides alone. He is disabled. He uses no assistive device. He has oxygen that he uses prn and a nebulizer. Pt is illiterate. Smoking Status: Former smoker Past Alcohol Use History: None Reported Additional Past Alcohol Use History / Comment(s): Pt started smoking in 1975 and quit in 2016. He smoked 3 ppd. Past Drug Use History: None Reported - Past Family History Father Family Medical History: Congestive Heart Failure (CHF) Additional Family Medical History / Comment(s): Father of CHF at the age of 80yrs. Mother Family Medical History: Cancer Additional Family Medical History / Comment(s): Mother from melanoma in her 70s. Medications and Allergies Home Medications Medication Instructions Recorded Confirmed Type Albuterol Nebulized [Ventolin 2.5 mg INHALATION RT-Q4H PRN 07/07/20 08/13/22 History Nebulized] Albuterol Sulfate [Proair Hfa] 1 - 2 puff INHALATION RT-Q6H PRN 07/07/20 08/13/22 History amLODIPine [Norvasc] 5 mg PO DAILY 07/07/20 08/13/22 History Tiotropium [place] [Spiriva] 2 puff INHALATION RT-DAILY 08/13/22 08/13/22 History Allergies Allergy/AdvReac Type Severity Reaction Status Date / Time No Known Allergies Allergy Verified 08/13/22 10:34 Physical Exam Vitals: Vital Signs Temp Pulse Pulse Resp BP BP Pulse Ox 08/13/22 05:41 20 08/13/22 04:47 98.0 F 100 18 140/90 93 L 08/13/22 04:00 98.6 F 94 16 135/85 95 08/13/22 03:00 85 20 133/84 94 L 08/13/22 02:30 106 H 08/13/22 02:10 102 H 08/13/22 02:06 90 08/13/22 02:00 98 20 126/94 98 08/13/22 01:50 104 H 08/13/22 01:31 100 08/13/22 01:10 20 126/94 95 08/13/22 01:01 98.0 F 98 20 132/79 97 Intake and Output 08/12/22 08/13/22 08/13/22 22:59 06:59 14:59 Intake Total 250 Balance 250 Intake: Oral 250 Other: Voiding Method Toilet # Voids 1 Weight 97.522 kg PHYSICAL EXAMINATION: GENERAL: The patient is alert and oriented x3, not in any acute distress. Well developed, well nourished. HEENT: Pupils are round and equally reacting to light. EOMI. No scleral icterus. No conjunctival pallor. Normocephalic, atraumatic. No pharyngeal erythema. No thyromegaly. CARDIOVASCULAR: S1 and S2 present. No murmurs, rubs, or gallops. PULMONARY: Diffuse bilateral wheezing or crackles. ABDOMEN: Soft, nontender, nondistended, normoactive bowel sounds. No palpable organomegaly. MUSCULOSKELETAL: No joint swelling or deformity. EXTREMITIES: No cyanosis, clubbing, or pedal edema. NEUROLOGICAL: Gross neurological examination did not reveal any focal deficits. SKIN: No rashes. Results CBC & Chem 7: 08/13/22 01:15 08/13/22 01:15 Labs: Abnormal Lab Results - Last 24 Hours (Table) 08/13/22 08/13/22 Range/Units 01:15 01:15 WBC 11.6 H (3.8-10.6) k/uL Neutrophils # 9.8 H (1.3-7.7) k/uL Lymphocytes # 0.9 L (1.0-4.8) k/uL Carbon Dioxide 31 H (22-30) mmol/L Glucose 124 H (74-99) mg/dL Thrombosis Risk Factor Assmnt - Choose All That Apply Any of the Below Risk Factors Present?: Yes Each Factor Represents 1 point: Abnormal pulmonary function (COPD), Obesity (BMI >25) Each Risk Factor Represents 2 Points: Age 61-74 years Other congenital or acquired thrombophilia - If yes, enter type in comment: No Thrombosis Risk Factor Assessment Total Risk Factor Score: 4 Thrombosis Risk Factor Assessment Level: Moderate Risk Assessment and Plan Assessment: 1. Acute on chronic hypoxic respiratory failure -- Patient is currently on oxygen at 3 L per nasal cannula with oxygen saturation ranging between 88-90% - We will plan to titrate dopamine as able 2. Acute exacerbation of severe COPD - Patient has been placed on IV Solu-Medrol 60 mg every 6 hours; pulmonary has recommended to initiate Symbicort, albuterol/ Spiriva - Continue with DuoNeb nebulizer treatments 4 times a day and when necessary - Patient to follow-up with pulmonary service 1 stable and ready for discharge 3. Hypertension; we will continue with home dose of Norvasc 5 mg daily 4. History of long-standing tobacco abuse; patient quit in 2016 DVT prophylaxis; SCDs CODE STATUS; full code
[2022-08-13] MEDS: BUDESONIDE 1 MG/2 ML NEBU INHALATION SCH (20:21)
[2022-08-13] MEDS: FORMOTEROL FUMARATE 20 MCG/2 ML NEBU INHALATION SCH (20:21)
[2022-08-14] MEDS: methylPREDNISolone SOD SUCCI 125 MG/2 ML VIAL IV SCH ×3 (05:43→19:01)
[2022-08-14] MEDS: ALBUTEROL NEBULIZED 2.5 MG/3 ML INHALATION SCH ×4 (08:05→19:50)
[2022-08-14] MEDS: BUDESONIDE 1 MG/2 ML NEBU INHALATION SCH ×2 (08:05→19:58)
[2022-08-14] MEDS: FORMOTEROL FUMARATE 20 MCG/2 ML NEBU INHALATION SCH ×2 (08:05→19:48)
[2022-08-14] MEDS: IPRATROPIUM 0.5 MG/2.5 ML NEBU INHALATION SCH ×4 (08:05→19:58)
[2022-08-14] MEDS ORDERED: FAMOTIDINE 20 MG/2 ML VIAL IV SCH (09:00)
[2022-08-14 09:14] LABS: African American GFR (CKD) 104.5 (60.0-200.0); Anion Gap 11.6 mmol/L (10.00-18.00); BUN/Creat Ratio 22.11 Ratio (12.00-20.00); Blood Urea Nitrogen 20.1 mg/dL (9.0-27.0); Calcium 9.5 mg/dL (8.7-10.3); Carbon Dioxide 26.4 mmol/L (20.0-27.5); Non-African American GFR(CKD) 90.1 (60.0-200.0); Potassium 5.1 mmol/L (3.5-5.5)
[2022-08-14] MEDS: AZITHROMYCIN 500 MG TAB PO SCH (09:22)
[2022-08-14] MEDS: HEPARIN SODIUM,PORCINE/PF 5,000 UNIT/0.5 ML SYRINGE SQ SCH ×2 (09:22→20:34)
[2022-08-14 09:48] LABS: Basophils # (A) 0.01 X 10*3/uL (0.00-0.10); Basophils % (A) 0.1 %; Eosinophils # (A) 0 X 10*3/uL (0.04-0.35); Eosinophils % (A) 0 %; HCT 44.5 % (39.6-50.0); HGB 14.4 g/dL (13.0-17.0); Immature Grans, Automated 0.6 %; Lymphocytes # (A) 0.41 X 10*3/uL (0.90-5.00); Lymphocytes % (A) 2.9 %; MCHC 32.4 g/dL (32.0-37.0); MCV 92.7 fL (80.0-97.0); Mean Platelet Volume 10.6 fL (9.5-12.2); Monocytes # (A) 0.15 X 10*3/uL (0.20-1.00); NRBC Per 100 WBC 0 /100 WBCS (0.0-0.0); Neutrophils # (A) 13.66 X 10*3/uL (1.80-7.70); Neutrophils % (A) 95.4 %; Platelet Count 274 X 10*3/uL (140-440); RDW 12.4 % (11.5-14.5); WBC 14.32 X 10*3/uL (4.50-10.00)
--- NOTE | 2022-08-14 11:39 | P.PN ---
Subjective Progress Note Date: 08/14/22 This is a 62-year-old male patient with a known history of previous heavy chronic tobacco dependence of approximately 40 years however quit in 2016, oxygen dependent chronic obstructive pulmonary disease, hypertension. He presented here to the emergency room approximately 1:00 this morning with an acute episode of shortness of breath that have been going on for approximately 5 hours prior. He had ran out of his inhaler for one day. He denied any fever or chills. No significant cough or congestion. Chest x-ray revealed no acute pulmonary process. EKG revealed sinus rhythm with no significant ST or T wave abnormalities. White count 11.6. Hemoglobin 16.3. Sodium 139. Potassium 4.8. Bicarb 31. BUN 15. Creatinine 0.67. Glucose 124. Influenza screen negative. RSV screen negative. COVID-19 screen negative. He is seen today in consultation on the regular medical floor. He is sitting up in bed. Awake and alert in no acute distress. He is maintaining O2 saturations in the 90s on 3 L/ m per nasal cannula. Dyspneic with conversation. Dyspneic with minimal exertion. The patient is seen today 08/14/2022 in follow-up on the regular medical floor. He is currently resting comfortably in bed. Awake and alert in no acute distress. Breathing easier today compared to yesterday. Still not quite back to his baseline. Maintaining good O2 saturations in the mid 90s on 3 L/m per nasal cannula. White count 14.3. Hemoglobin 14.4. Sodium 140. Potassium 5.1. Bicarb 26. BUN 20. Creatinine 0.9. He is continued on Pulmicort and Perforomist inhalations, albuterol and Atrovent inhalations, IV Solu-Medrol. Objective - Vital Signs Vital signs: Vital Signs Temp 97.6 F 08/14/22 07:00 Pulse 82 08/14/22 11:13 Resp 22 08/14/22 07:00 BP 133/89 08/14/22 07:00 Pulse Ox 96 08/14/22 08:06 FiO2 Intake & Output 08/13/22 08/14/22 08/14/22 18:59 06:59 18:59 Intake Total 236 500 118 Balance 236 500 118 Intake: Oral 236 500 118 Other: Voiding Method Toilet # Voids 2 # Bowel Movements 1 - Exam GENERAL EXAM: Alert, 62-year-old male, on 3 L nasal cannula, fairly comfortable in no apparent distress. HEAD: Normocephalic. EYES: Normal reaction of pupils, equal size. NOSE: Clear with pink turbinates. THROAT: No erythema or exudates. NECK: No masses, no JVD. CHEST: No chest wall deformity. LUNGS: Equal air entry with bilateral wheezing, diminished throughout. CVS: S1 and S2 normal with no audible murmur, regular rhythm. ABDOMEN: No hepatosplenomegaly, normal bowel sounds, no guarding or rigidity. SPINE: No scoliosis or deformity SKIN: No rashes CENTRAL NERVOUS SYSTEM: No focal deficits, tone is normal in all 4 extremities. EXTREMITIES: There is no peripheral edema. No clubbing, no cyanosis. Peripheral pulses are intact. - Labs CBC & Chem 7: 08/14/22 05:27 08/14/22 05:27 Labs: Abnormal Lab Results - Last 24 Hours (Table) 08/14/22 08/14/22 Range/Units 05:27 05:27 WBC 14.32 H (4.50-10.00) X 10*3/uL Immature Gran # 0.09 H (0.00-0.04) X 10*3/uL Neutrophils # 13.66 H (1.80-7.70) X 10*3/uL Lymphocytes # 0.41 L (0.90-5.00) X 10*3/uL Monocytes # 0.15 L (0.20-1.00) X 10*3/uL Eosinophils # 0 L (0.04-0.35) X 10*3/uL BUN/Creatinine Ratio 22.11 H (12.00-20.00) Ratio Glucose 171 H (70-110) mg/dL Assessment and Plan Assessment: Acute on chronic hypoxemic respiratory failure secondary to an acute exacerbation of chronic obstructive pulmonary disease History of 40+ years of 3 pack per day smoking history however quit in 2016 Hypertension Plan: The patient was seen and evaluated Labs and medications reviewed Continue Solu-Medrol, bronchodilators Would benefit from follow-up in the office post discharge Probable discharge in the a.m. We will continue to follow I have personally seen and examined the patient, performed the documentation and the assessment and plan as written. Number of minutes spent on the visit: 10.
--- NOTE | 2022-08-14 18:27 | P.PN ---
Subjective 62-year-old male past medical history of COPD and CHF. Patient has been having shortness of breath for the last 5 hours. Patient ran out of his inhaler for one day. 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 States that he has remote history of smoking but does not smoke anymore. EMS provided patient with a breathing treatment initially which significantly improved symptoms symptoms. As reports that patient was hypoxic on initial dilation. Patient has any fevers. States that his cough seems to be baseline. No pain complaints Chest x-ray revealed no acute pulmonary process. EKG revealed sinus rhythm with no significant ST or T wave abnormalities. White count 11.6. Hemoglobin 16.3. Sodium 139. Potassium 4.8. Bicarb 31. BUN 15. Creatinine 0.67. Glucose 124. Influenza screen negative. RSV screen negative. COVID-19 screen negative. 08/14/2022 Patient is breathing is improving slowly and gradually, Patient still has scattered wheezing He states he is on 2 L oxygen at home and that he follow-up with Dr. Ty as an outpatient. Patient denies any other symptoms, no chest pain coughing, no GI symptoms abdominal pain or vomiting or diarrhea. He tolerates diet well. No urinary symptoms. No headache dizziness weakness or numbness. Patient currently kept on IV Solu-Medrol 69, and oral Zithromax. Possible discharge in 24-48 hours Objective - Vital Signs Vital signs: Vital Signs Temp 97.6 F 08/14/22 07:00 Pulse 82 08/14/22 11:13 Resp 22 08/14/22 07:00 BP 133/89 08/14/22 07:00 Pulse Ox 96 08/14/22 08:06 FiO2 Intake & Output 08/13/22 08/14/22 08/14/22 18:59 06:59 18:59 Intake Total 236 500 118 Balance 236 500 118 Intake: Oral 236 500 118 Other: Voiding Method Toilet # Voids 2 # Bowel Movements 1 - Exam GENERAL: The patient is alert and oriented x3, not in any acute distress. Well developed, well nourished. HEENT: Pupils are round and equally reacting to light. EOMI. No scleral icterus. No conjunctival pallor. Normocephalic, atraumatic. No pharyngeal erythema. No thyromegaly. CARDIOVASCULAR: S1 and S2 present. No murmurs, rubs, or gallops. -PULMONARY: Chest is clear to auscultation, bilateral scattered wheezing ABDOMEN: Soft, nontender, nondistended, normoactive bowel sounds. No palpable o rganomegaly. MUSCULOSKELETAL: No joint swelling or deformity. EXTREMITIES: No cyanosis, clubbing, or pedal edema. NEUROLOGICAL: Gross neurological examination did not reveal any focal deficits. SKIN: No rashes. no petechiae. - Labs CBC & Chem 7: 08/14/22 05:27 08/14/22 05:27 Labs: Abnormal Lab Results - Last 24 Hours (Table) 08/14/22 08/14/22 Range/Units 05:27 05:27 WBC 14.32 H (4.50-10.00) X 10*3/uL Immature Gran # 0.09 H (0.00-0.04) X 10*3/uL Neutrophils # 13.66 H (1.80-7.70) X 10*3/uL Lymphocytes # 0.41 L (0.90-5.00) X 10*3/uL Monocytes # 0.15 L (0.20-1.00) X 10*3/uL Eosinophils # 0 L (0.04-0.35) X 10*3/uL BUN/Creatinine Ratio 22.11 H (12.00-20.00) Ratio Glucose 171 H (70-110) mg/dL Assessment and Plan Assessment: 1. Acute on chronic hypoxic respiratory failure -- Patient is currently on oxygen at 3 L per nasal cannula with oxygen saturation ranging between 88-90% - We will plan to titrate dopamine as able 2. Acute exacerbation of severe COPD - Patient has been placed on IV Solu-Medrol 60 mg every 6 hours; pulmonary has recommended to initiate Symbicort, albuterol/ Spiriva - Continue with DuoNeb nebulizer treatments 4 times a day and when necessary - Patient to follow-up with pulmonary service 1 stable and ready for discharge 3. Hypertension; we will continue with home dose of Norvasc 5 mg daily 4. History of long-standing tobacco abuse; patient quit in 2016 DVT prophylaxis; SCDs CODE STATUS; full code
[2022-08-14] MEDS: FAMOTIDINE 20 MG TAB PO SCH (20:34)
[2022-08-15] MEDS: methylPREDNISolone SOD SUCCI 125 MG/2 ML VIAL IV SCH ×4 (00:24→19:36)
[2022-08-15] MEDS: AZITHROMYCIN 500 MG TAB PO SCH (09:20)
[2022-08-15] MEDS: FAMOTIDINE 20 MG TAB PO SCH ×2 (09:20→19:36)
[2022-08-15] MEDS: HEPARIN SODIUM,PORCINE/PF 5,000 UNIT/0.5 ML SYRINGE SQ SCH ×2 (09:20→19:37)
[2022-08-15] MEDS: IPRATROPIUM 0.5 MG/2.5 ML NEBU INHALATION SCH ×4 (09:39→20:27)
[2022-08-15] MEDS: FORMOTEROL FUMARATE 20 MCG/2 ML NEBU INHALATION SCH ×2 (09:39→20:28)
[2022-08-15] MEDS: BUDESONIDE 1 MG/2 ML NEBU INHALATION SCH ×2 (09:39→20:28)
[2022-08-15] MEDS: ALBUTEROL NEBULIZED 2.5 MG/3 ML INHALATION SCH ×4 (09:39→20:27)
--- NOTE | 2022-08-15 13:22 | P.PN ---
Subjective Progress Note Date: 08/15/22 This is a 62-year-old male patient with a known history of previous heavy chronic tobacco dependence of approximately 40 years however quit in 2016, oxygen dependent chronic obstructive pulmonary disease, hypertension. He presented here to the emergency room approximately 1:00 this morning with an acute episode of shortness of breath that have been going on for approximately 5 hours prior. He had ran out of his inhaler for one day. He denied any fever or chills. No significant cough or congestion. Chest x-ray revealed no acute pulmonary process. EKG revealed sinus rhythm with no significant ST or T wave abnormalities. White count 11.6. Hemoglobin 16.3. Sodium 139. Potassium 4.8. Bicarb 31. BUN 15. Creatinine 0.67. Glucose 124. Influenza screen negative. RSV screen negative. COVID-19 screen negative. He is seen today in consultation on the regular medical floor. He is sitting up in bed. Awake and alert in no acute distress. He is maintaining O2 saturations in the 90s on 3 L/ m per nasal cannula. Dyspneic with conversation. Dyspneic with minimal exertion. The patient is seen today 08/14/2022 in follow-up on the regular medical floor. He is currently resting comfortably in bed. Awake and alert in no acute distress. Breathing easier today compared to yesterday. Still not quite back to his baseline. Maintaining good O2 saturations in the mid 90s on 3 L/m per nasal cannula. White count 14.3. Hemoglobin 14.4. Sodium 140. Potassium 5.1. Bicarb 26. BUN 20. Creatinine 0.9. He is continued on Pulmicort and Perforomist inhalations, albuterol and Atrovent inhalations, IV Solu-Medrol. The patient is seen today 08/15/2022 in follow-up on the regular medical floor. He sitting up at the bedside. Awake and alert in no acute distress. He is anxious to go home however he is still somewhat bronchospastic and wheezy. Still dyspneic with conversation. Dyspneic with minimal exertion. He states he does have home oxygen that he uses mostly at nighttime. He is currently maintaining O2 saturations low 90s on 3 L/m per nasal cannula. He is afebrile. Hemodynamically stable. He is continued on IV site Medrol, albuterol, Pulmicort and Perforomist inhalat ions. Completed azithromycin. Objective - Vital Signs Vital signs: Vital Signs Temp 98.1 F 08/15/22 08:00 Pulse 96 08/15/22 12:48 Resp 22 08/15/22 08:00 BP 133/80 08/15/22 08:00 Pulse Ox 92 L 08/15/22 09:43 FiO2 Intake & Output 08/14/22 08/15/22 08/15/22 18:59 06:59 18:59 Intake Total 118 118 Balance 118 118 Intake: Oral 118 118 Other: Voiding Method Toilet # Voids 1 2 - Exam GENERAL EXAM: Alert, 62-year-old male, sitting up at the bedside, on 3 L nasal cannula, fairly comfortable in no apparent distress. HEAD: Normocephalic. EYES: Normal reaction of pupils, equal size. NOSE: Clear with pink turbinates. THROAT: No erythema or exudates. NECK: No masses, no JVD. CHEST: No chest wall deformity. LUNGS: Equal air entry with bilateral wheezing, diminished throughout. CVS: S1 and S2 normal with no audible murmur, regular rhythm. ABDOMEN: No hepatosplenomegaly, normal bowel sounds, no guarding or rigidity. SPINE: No scoliosis or deformity SKIN: No rashes CENTRAL NERVOUS SYSTEM: No focal deficits, tone is normal in all 4 extremities. EXTREMITIES: There is no peripheral edema. No clubbing, no cyanosis. Peripheral pulses are intact. - Labs CBC & Chem 7: 08/14/22 05:27 08/14/22 05:27 Assessment and Plan Assessment: Acute on chronic hypoxemic respiratory failure secondary to an acute exacerbation of chronic obstructive pulmonary disease History of 40+ years of 3 pack per day smoking history however quit in 2016 Hypertension Plan: The patient was seen and evaluated Labs and medications reviewed Continue Solu-Medrol, bronchodilators Not quite ready for discharge Titrate the FiO2 as tolerated We will continue to follow I have personally seen and examined the patient, performed the documentation and the assessment and plan as written. Number of minutes spent on the visit: 10.
--- NOTE | 2022-08-16 00:22 | P.PN ---
Subjective 62-year-old male past medical history of COPD and CHF. Patient has been having shortness of breath for the last 5 hours. Patient ran out of his inhaler for one day. 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 States that he has remote history of smoking but does not smoke anymore. EMS provided patient with a breathing treatment initially which significantly improved symptoms symptoms. As reports that patient was hypoxic on initial dilation. Patient has any fevers. States that his cough seems to be baseline. No pain complaints Chest x-ray revealed no acute pulmonary process. EKG revealed sinus rhythm with no significant ST or T wave abnormalities. White count 11.6. Hemoglobin 16.3. Sodium 139. Potassium 4.8. Bicarb 31. BUN 15. Creatinine 0.67. Glucose 124. Influenza screen negative. RSV screen negative. COVID-19 screen negative. 08/14/2022 Patient is breathing is improving slowly and gradually, Patient still has scattered wheezing He states he is on 2 L oxygen at home and that he follow-up with Dr. Ty as an outpatient. Patient denies any other symptoms, no chest pain coughing, no GI symptoms abdominal pain or vomiting or diarrhea. He tolerates diet well. No urinary symptoms. No headache dizziness weakness or numbness. Patient currently kept on IV Solu-Medrol 69, and oral Zithromax. Possible discharge in 24-48 hours 08/15/2022 Significant air entry Mild tachypnea at rest Ducts repeatedly Continue with IV Solu-Medrol Antibiotics were already discontinued. Plan discussed with patient and he is agreeable Objective - Vital Signs Vital signs: Vital Signs Temp 98.0 F 08/15/22 14:00 Pulse 99 08/15/22 14:00 Resp 20 08/15/22 14:00 BP 126/71 08/15/22 14:00 Pulse Ox 93 L 08/15/22 14:00 FiO2 Intake & Output 08/14/22 08/15/22 08/15/22 18:59 06:59 18:59 Intake Total 118 136 Balance 118 136 Intake: Oral 118 136 Other: Voiding Method Toilet # Voids 1 2 - Exam GENERAL: The patient is alert and oriented x3, not in any acute distress. Well developed, well nourished. HEENT: Pupils are round and equally reacting to light. EOMI. No scleral icterus. No conjunctival pallor. Normocephalic, atraumatic. No pharyngeal erythema. No thyromegaly. CARDIOVASCULAR: S1 and S2 present. No murmurs, rubs, or gallops. -PULMONARY: Chest is clear to auscultation, bilateral scattered wheezing ABDOMEN: Soft, nontender, nondistended, normoactive bowel sounds. No palpable organomegaly. MUSCULOSKELETAL: No joint swelling or deformity. EXTREMITIES: No cyanosis, clubbing, or pedal edema. NEUROLOGICAL: Gross neurological examination did not reveal any focal deficits. SKIN: No rashes. no petechiae. - Labs CBC & Chem 7: 08/14/22 05:27 08/14/22 05:27 Assessment and Plan Assessment: 1. Acute on chronic hypoxic respiratory failure -- Patient is currently on oxygen at 3 L per nasal cannula with oxygen saturation ranging between 88-90% - We will plan to titrate dopamine as able 2. Acute exacerbation of severe COPD - Patient has been placed on IV Solu-Medrol 60 mg every 6 hours; pulmonary has recommended to initiate Symbicort, albuterol/ Spiriva - Continue with DuoNeb nebulizer treatments 4 times a day and when necessary - Patient to follow-up with pulmonary service 1 stable and ready for discharge 3. Hypertension; we will continue with home dose of Norvasc 5 mg daily 4. History of long-standing tobacco abuse; patient quit in 2016 DVT prophylaxis; SCDs CODE STATUS; full code
[2022-08-16] MEDS: methylPREDNISolone SOD SUCCI 125 MG/2 ML VIAL IV SCH ×2 (01:04→06:20)
[2022-08-16 06:31] VITALS: RESP 18
[2022-08-16] MEDS: ALBUTEROL NEBULIZED 2.5 MG/3 ML INHALATION SCH ×2 (07:56→11:25)
[2022-08-16] MEDS: FORMOTEROL FUMARATE 20 MCG/2 ML NEBU INHALATION SCH (07:56)
[2022-08-16] MEDS: IPRATROPIUM 0.5 MG/2.5 ML NEBU INHALATION SCH ×2 (07:56→11:25)
[2022-08-16] MEDS: BUDESONIDE 1 MG/2 ML NEBU INHALATION SCH (07:56)
[2022-08-16] MEDS: FAMOTIDINE 20 MG TAB PO SCH (08:52)
[2022-08-16] MEDS: HEPARIN SODIUM,PORCINE/PF 5,000 UNIT/0.5 ML SYRINGE SQ SCH (08:53)
[2022-08-16] MEDS ORDERED: predniSONE 20 MG TAB PO SCH (09:00)
[2022-08-16 09:02] VITALS: BP 142/89; TEMP 97.6
--- NOTE | 2022-08-16 11:15 | XR ---
EXAMINATION TYPE: XR KUB portable DATE OF EXAM: 08/16/2022 11:08 AM CLINICAL HISTORY: Distention TECHNIQUE: Two supine KUB images of the abdomen are obtained. COMPARISON: None. FINDINGS: Gas is seen in nondistended stomach. Scattered gas is seen in non-distended small bowel loo ps. Gas and fecal material is seen in non-distended colon. Some vascular calcification overlies the p viji. Cardiomegaly is present. Suggestion of small right greater left pleural effusions on current s tudy. Correlate clinically. Visualized osseous structures are intact. IMPRESSION: Overall nonobstructive bowel gas pattern.
--- NOTE | 2022-08-16 11:37 | P.PN ---
Subjective Progress Note Date: 08/16/22 This is a 62-year-old male patient with a known history of previous heavy chronic tobacco dependence of approximately 40 years however quit in 2016, oxygen dependent chronic obstructive pulmonary disease, hypertension. He presented here to the emergency room approximately 1:00 this morning with an acute episode of shortness of breath that have been going on for approximately 5 hours prior. He had ran out of his inhaler for one day. He denied any fever or chills. No significant cough or congestion. Chest x-ray revealed no acute pulmonary process. EKG revealed sinus rhythm with no significant ST or T wave abnormalities. White count 11.6. Hemoglobin 16.3. Sodium 139. Potassium 4.8. Bicarb 31. BUN 15. Creatinine 0.67. Glucose 124. Influenza screen negative. RSV screen negative. COVID-19 screen negative. He is seen today in consultation on the regular medical floor. He is sitting up in bed. Awake and alert in no acute distress. He is maintaining O2 saturations in the 90s on 3 L/ m per nasal cannula. Dyspneic with conversation. Dyspneic with minimal exertion. The patient is seen today 08/14/2022 in follow-up on the regular medical floor. He is currently resting comfortably in bed. Awake and alert in no acute distress. Breathing easier today compared to yesterday. Still not quite back to his baseline. Maintaining good O2 saturations in the mid 90s on 3 L/m per nasal cannula. White count 14.3. Hemoglobin 14.4. Sodium 140. Potassium 5.1. Bicarb 26. BUN 20. Creatinine 0.9. He is continued on Pulmicort and Perforomist inhalations, albuterol and Atrovent inhalations, IV Solu-Medrol. The patient is seen today 08/15/2022 in follow-up on the regular medical floor. He sitting up at the bedside. Awake and alert in no acute distress. He is anxious to go home however he is still somewhat bronchospastic and wheezy. Still dyspneic with conversation. Dyspneic with minimal exertion. He states he does have home oxygen that he uses mostly at nighttime. He is currently maintaining O2 saturations low 90s on 3 L/m per nasal cannula. He is afebrile. Hemodynamically stable. He is continued on IV site Medrol, albuterol, Pulmicort and Perforomist inhalat ions. Completed azithromycin. The patient is seen today 08/16/2021 in follow-up on the regular medical floor. He is currently sitting up at the bedside. Awake and alert in no acute distress. Breathing easier today compared to yesterday. Maintaining O2 saturations in the 90s on room air. He's afebrile. He was having some abdominal distention. X-ray revealed overall nonobstructive bowel gas pattern. No new labs today. He remains on IV site Medrol, bronchodilators. Completed azithromycin. Objective - Vital Signs Vital signs: Vital Signs Temp 97.6 F 08/16/22 08:00 Pulse 80 08/16/22 11:26 Resp 18 08/16/22 08:00 BP 142/89 08/16/22 08:00 Pulse Ox 94 L 08/16/22 08:00 FiO2 Intake & Output 08/15/22 08/16/22 08/16/22 18:59 06:59 18:59 Intake Total 136 120 Balance 136 120 Intake: Oral 136 120 Other: Voiding Method Toilet # Voids 1 2 1 # Bowel Movements 1 - Exam GENERAL EXAM: Alert, 62-year-old male, resting in bed, on room air, fairly comfortable in no apparent distress. HEAD: Normocephalic. EYES: Normal reaction of pupils, equal size. NOSE: Clear with pink turbinates. THROAT: No erythema or exudates. NECK: No masses, no JVD. CHEST: No chest wall deformity. LUNGS: Equal air entry with bilateral wheezing, diminished throughout. CVS: S1 and S2 normal with no audible murmur, regular rhythm. ABDOMEN: No hepatosplenomegaly, normal bowel sounds, no guarding or rigidity. SPINE: No scoliosis or deformity SKIN: No rashes CENTRAL NERVOUS SYSTEM: No focal deficits, tone is normal in all 4 extremities. EXTREMITIES: There is no peripheral edema. No clubbing, no cyanosis. Peripheral pulses are intact. - Labs CBC & Chem 7: 08/14/22 05:27 08/14/22 05:27 Assessment and Plan Assessment: Acute on chronic hypoxemic respiratory failure secondary to an acute exacerbation of chronic obstructive pulmonary disease History of 40+ years of 3 pack per day smoking history however quit in 2016 Hypertension Plan: The patient was seen and evaluated Medications reviewed Cleared for discharge from the pulmonary standpoint Complete a prednisone taper starting at 40 mg daily for 4 days Recommend Symbicort 160 two puffs twice a day Continue his home Spiriva and pro-air Continue his home oxygen Follow-up in our office in 1 week I have personally seen and examined the patient, performed the documentation and the assessment and plan as written. Number of minutes spent on the visit: 10.
[2022-08-16 11:38] VITALS: PULSE 82
--- NOTE | 2022-08-16 22:53 | P.DS ---
Providers Date of admission: 08/14/22 05:57 Attending physician: Quentin Dowd Consults: 08/13/22 03:51 Consult Physician Routine Consulting Provider: Rosa Orosco Consult Reason/Comments: copd exacerbation Do you want consulting provider notified?: Yes Primary care physician: Stated None Hospital Course: Diagnoses: 1. Acute on chronic hypoxic respiratory failure, resolved and stable 2. Acute exacerbation of severe COPD, improved stable and cleared for discharge by insole buffer, patient wants to go home today 3. Hypertension; we will continue with home dose of Norvasc 5 mg daily 4. History of long-standing tobacco abuse; patient quit in 2016 5. Mild asymptomatic abdominal distention most likely due to fat, patient was concerned and requested KUB which came back negative for bowel obstruction, also I recommended for the patient and offered to do ultrasound of the abdomen but he declined, workup was deferred as an outpatient upon patient's request, risks including but not limited to cancer are explained and he verbalized understanding and acceptance. However patient with no abdominal pain or tenderness, tenderness that with no vomiting. No diarrhea or change in bowel habits. Hospital course: 62-year-old male past medical history of COPD and CHF. Presents with dyspnea and hypoxia, evaluated by insole buffer, treated with some internal and Zithromax, he showed interval improvement On the day of discharge she denies chest pain dyspnea improved, no abdominal pain, no change in urine or bowel habits. No fever. Patient was cleared for discharge by insole buffer and patient is eager to go home today. Patient will be discharged on tapered prednisone. Problems and management plan were discussed with the patient and he verbalized understanding and acceptance Patient was found stable and can be discharged home in guarded prognosis however he needs follow-up as an outpatient. Patient was instructed to follow up with PCP within one week and patient agrees Patient was instructed to follow up with Dr. Sifuentes 2-3 weeks after discharge and increased: Make an appointment Physical exam Gen: patient is a AAOx3, no distress CVS: S1-S2, RRR, no murmur -Lungs: B/L CTA, no wheezing, the tachypneic, oxygen in place Abdomen: soft, no distention, no tenderness, positive bowel sounds Extremity: no leg edema or induration Time spent more than 35 minutes Patient Condition at Discharge: Fair Plan - Discharge Summary Discharge Rx Participant: No New Discharge Prescriptions: New RX: Famotidine [Pepcid] 20 mg PO BID #60 tab RX: predniSONE 10 mg PO DIRECTED #40 tab Continue RX: amLODIPine [Norvasc] 5 mg PO DAILY RX: Albuterol Sulfate [Proair Hfa] 1 - 2 puff INHALATION RT-Q6H PRN PRN Reason: Shortness Of Breath RX: Albuterol Nebulized [Ventolin Nebulized] 2.5 mg INHALATION RT-Q4H PRN #100 ml PRN Reason: Shortness Of Breath RX: Tiotropium [place] [Spiriva Handihaler] 2 puff INHALATION RT-DAILY Discharge Medication List RX: Albuterol Sulfate [Proair Hfa] 1 - 2 puff INHALATION RT-Q6H PRN 07/07/20 [History] RX: amLODIPine [Norvasc] 5 mg PO DAILY 07/07/20 [History] RX: Tiotropium [place] [Spiriva Handihaler] 2 puff INHALATION RT-DAILY 08/13/22 [History] RX: Albuterol Nebulized [Ventolin Nebulized] 2.5 mg INHALATION RT-Q4H PRN #100 ml 08/16/22 [Rx] RX: Famotidine [Pepcid] 20 mg PO BID #60 tab 08/16/22 [Rx] RX: predniSONE 10 mg PO DIRECTED #40 tab 08/16/22 [Rx] Follow up Appointment(s)/Referral(s): Rosa Orosco MD [STAFF PHYSICIAN] - 09/07/22 2:00 pm None,Stated [Primary Care Provider] - 1-2 days Activity/Diet/Wound Care/Special Instructions: heart healthy diet activity is restricted till you see your doctor Discharge Disposition: HOME SELF-CARE
== END 2022-08-16 14:17 | disposition home or self-care (01) | DRG 140 ==
LOC: EC 01:00 → 6NMEDSUR 03:49 → OBSVTOIN 08-14 05:57
PROVIDERS: ADMIT Internal Medicine; ATTEND Internal Medicine
PROC: 3E043XZ Introduction of Vasopressor into Central Vein, Percutaneous Approach (ICD-10-PCS; principal; 2022-08-14)
DX: J44.1 Chronic obstructive pulmonary disease with (acute) exacerbation (principal); J96.21 Acute and chronic respiratory failure with hypoxia; M19.041 Primary osteoarthritis, right hand; M19.042 Primary osteoarthritis, left hand; Z20.822 Contact with and (suspected) exposure to COVID-19; I95.9 Hypotension, unspecified; Z79.51 Long term (current) use of inhaled steroids; Z79.899 Other long term (current) drug therapy; Z82.49 Family history of ischemic heart disease and other diseases of the circulatory system; Z87.891 Personal history of nicotine dependence; F10.11 Alcohol abuse, in remission; Z60.2 Problems related to living alone; Z28.310 Unvaccinated for COVID-19; Z88.1 Allergy status to other antibiotic agents; Z88.8 Allergy status to other drugs, medicaments and biological substances; R14.0 Abdominal distension (gaseous)
CPT/HCPCS: 36415; 71046; 74018; 80048; 83880; 84484; 85025; 87636; 93005; 94640; 94644; 94760; 96374; 99285

== ENCOUNTER → 2022-11-08 | Outpatient (CLI) | payer OTHER ==
--- NOTE | 2022-11-08 10:19 | CTL ---
EXAMINATION TYPE: CT Low Dose Lung DATE OF EXAM ORDERED: 11/08/2022 COMPARISON: CT chest angiogram 05/17/2018 HISTORY: . Low Dose CT Lung Screening CT DLP: 115.[address] CTDI: 3.1 mGy IV CONTRAST USED: None. SCREENING VISIT: First visit COMPARISON: None. TECHNIQUE: Low dose computed tomography scan was performed through the chest at 1 millimeter thick se ctions and reconstructed images in the coronal plane at [address] DIAGNOSTIC QUALITY: Satisfactory FINDINGS: LUNG NODULES: Not presentLeft lung: no nodules identified.Right lung: no nodules identified. LUNGS: COPD: Severity: Mild upper lobe emphysematous changes. Fibrosis: Severity:None Lymph nodes: None Other findings: None RIGHT PLEURAL SPACE: Effusion: None Calcification: None Thickening: None Pneumothorax: None LEFT PLEURAL SPACE: Effusion: None Calcification: None Thickening: None Pneumothorax: None HEART: Heart Size: Mildly enlarged Coronary calcification: Moderate two vessel Pericardial effusion: None OTHER FINDINGS: Upper abdomen: No significant abnormality Bony thorax: Degenerative changes Supraclavicular region: No significant abnormalityOther: No significant abnormalityI IMPRESSION: Mild emphysematous change. No concerning pulmonary nodules seen. FOLLOW UP CT CHEST RECOMMENDATION: Follow-up screening in one year CT LUNG RAD: LUNG RAD CATEGORY 1 negative
== END | disposition home or self-care (01) ==
LOC: RADCTMAIN 09:32
PROVIDERS: ATTEND Internal Medicine
DX: Z12.2 Encounter for screening for malignant neoplasm of respiratory organs (principal); J43.9 Emphysema, unspecified; Z87.891 Personal history of nicotine dependence
CPT/HCPCS: 71271

== ENCOUNTER 2023-03-15 16:24 | Inpatient (IN) | payer OTHER ==
[2023-03-15] MEDS ORDERED: methylPREDNISolone SOD SUCCI 125 MG/2 ML VIAL IV STA (17:22)
[2023-03-15] MEDS ORDERED: SODIUM CHLORIDE 0.9% 1,000 ML IV STA ×3 (17:22→19:51)
[2023-03-15] MEDS ORDERED: IPRATROPIUM-ALBUTEROL 3 ML NEB INHALATION STA ×3 (17:22→19:49)
[2023-03-15] MEDS ORDERED: MAGNESIUM SULFATE-D5W PMX 1 GM in DEXTROSE/WATER 1 100ML.BAG IVPB ONE (17:24)
[2023-03-15 17:29] LABS: Basophils % (A) 0 %; Eosinophils # (A) 0.1 k/uL (0-0.7); Eosinophils % (A) 0 %; HCT 45.1 % (39.0-53.0); HGB 15.1 gm/dL (13.0-17.5); Lymphocytes # (A) 0.7 k/uL (1.0-4.8); Lymphocytes % (A) 4 %; MCH 31.1 pg (25.0-35.0); MCHC 33.6 g/dL (31.0-37.0); MCV 92.6 fL (80.0-100.0); Mean Platelet Volume 8.5; Monocytes # (A) 1.1 k/uL (0-1.0); Monocytes % (A) 6 %; Neutrophils # (A) 15.1 k/uL (1.3-7.7); Neutrophils % (A) 89 %; Platelet Count 253 k/uL (150-450); RBC 4.87 m/uL (4.30-5.90); RDW 12.7 % (11.5-15.5); WBC 17.1 k/uL (3.8-10.6)
[2023-03-15 17:32] LABS: ALT 26 U/L (4-49); AST 23 U/L (17-59); African American GFR (CKD) >90 (>60 ml/min/1.73 sqM); Albumin 4.1 g/dL (3.5-5.0); Alkaline Phosphatase 78 U/L (38-126); Anion Gap 12 mmol/L; Blood Urea Nitrogen 23 mg/dL (9-20); Calcium 9.3 mg/dL (8.4-10.2); Carbon Dioxide 29 mmol/L (22-30); Chloride 99 mmol/L (98-107); Glucose 185 mg/dL (74-99); Non-African American GFR(CKD) >90 (>60 ml/min/1.73 sqM); Potassium 4.2 mmol/L (3.5-5.1); Sodium 140 mmol/L (137-145); Total Bilirubin 0.8 mg/dL (0.2-1.3); Total Protein 6.9 g/dL (6.3-8.2)
[2023-03-15 17:47] LABS: Partial Thromboplastin Time 26.3 sec (22.0-30.0)
--- NOTE | 2023-03-15 17:50 | ED ---
General Adult HPI - General Chief complaint: Shortness of Breath Stated complaint: sob has copd Time Seen by Provider: 03/15/23 17:08 Source: patient, RN notes reviewed, old records reviewed Mode of arrival: wheelchair Limitations: no limitations - History of Present Illness Initial comments: Patient is a 62-year-old male with past medical history remarkable for COPD, hypertension on 3 L nasal cannula oxygen at home presents emergency Department complaining of more days of chest congestion, productive cough of a yellowish mucus that is abnormal for him, as well as worsening shortness of breath. Denies any fevers. Denies any sick contacts. Has been attempting to treat his symptoms at home with home breathing treatments without much success. Presents for further evaluation. Denies chest pain, abdominal pain, nausea, vomiting. Has no other acute complaints at this time. States he has a history of bedbugs by after being fully stripped down no evidence of bedbugs on the patient's body. Presents for further evaluation at this time. - Related Data Home Medications Medication Instructions Recorded Confirmed Albuterol Sulfate [Proair Hfa] 1 - 2 puff INHALATION RT-Q6H PRN 07/07/20 03/15/23 Tiotropium [place] [Spiriva 2 puff INHALATION RT-DAILY 08/13/22 03/15/23 Handihaler] Fluticasone Propion/Salmeterol 1 puff INHALATION RT-BID 03/15/23 03/15/23 [Advair 250-50 Diskus] Mometasone Furoate [Elocon Cream 1 applic TOPICAL DAILY PRN 03/15/23 03/15/23 0.1%] Prostate Support Supplement 1 tab PO DAILY 03/15/23 03/15/23 amLODIPine [Norvasc] 5 mg PO DAILY 03/15/23 03/15/23 predniSONE 10 mg PO BID PRN 03/15/23 03/15/23 Previous Rx's Medication Instructions Recorded Albuterol Nebulized [Ventolin 2.5 mg INHALATION RT-Q4H PRN #100 08/16/22 Nebulized] ml Allergies Allergy/AdvReac Type Severity Reaction Status Date / Time No Known Allergies Allergy Verified 03/15/23 20:39 Review of Systems ROS Statement: Those systems with pertinent positive or pertinent negative responses have been documented in the HPI. Review of Systems: CONST: Denies fever EYES: Denies blurry vision ENT: Denies nasal congestion C/V: Denies Chest pain RESP: Endorses shortness of breath GI: Denies abdominal pain : Denies dysuria SKIN: Denies rash. MSK: Denies joint pain. NEURO: Denies headache ROS Other: All systems not noted in ROS Statement are negative. Past Medical History Past Medical History: COPD, Hypertension Additional Past Medical History / Comment(s): Severe COPD with acute hypoxic respiratory failure, home O2 prn, tremors bilateral hands, arthritis bilateral hands. History of Any Multi-Drug Resistant Organisms: None Reported Past Surgical History: Orthopedic Surgery Additional Past Surgical History / Comment(s): left lower leg fracture with surgery/no hardware, colonoscopy Past Anesthesia/Blood Transfusion Reactions: No Reported Reaction Past Psychological History: No Psychological Hx Reported Smoking Status: Former smoker Past Alcohol Use History: None Reported Past Drug Use History: None Reported - Past Family History Father Family Medical History: Congestive Heart Failure (CHF) Additional Family Medical History / Comment(s): Father of CHF at the age of 80yrs. Mother Family Medical History: Cancer Additional Family Medical History / Comment(s): Mother from melanoma in her 70s. General Exam - General Exam Comments Initial Comments: General: Appears in mild to moderate respiratory distress. HEAD: Normal with no signs of head trauma. EYES: PERRLA, EOMI, conjunctiva normal, no discharge. ENT: Hearing grossly intact, normal oropharynx. Dry mucous membranes. RESPIRATORY: Tight breath sounds bilaterally with end expiratory wheezing. Hypoxia on room air to 85%, improved on 4 L nasal cannula to 93-95%. Increased work of breathing. C/V: Tachycardia. S1 and S2 auscultated, no edema, peripheral pulses 2+ and intact throughout ABD: Abd is soft, nontender, nondistended EXT: Normal range of motion, no obvious deformity SKIN: No rashes or lesions observed on exposed skin. NEURO: Alert and oriented x 4. Limitations: no limitations Course Vital Signs 03/15/23 03/15/23 03/15/23 16:34 17:28 17:30 Temperature 98.1 F Pulse Rate 133 H 123 H Respiratory 16 26 H Rate Blood Pressure 111/78 O2 Sat by Pulse 85 L Oximetry Fraction of Inspired Oxygen (FIO2) 03/15/23 03/15/23 03/15/23 17:40 17:43 18:01 Temperature Pulse Rate 122 H 128 H 124 H Respiratory 26 H Rate Blood Pressure 124/86 O2 Sat by Pulse 96 Oximetry Fraction of 35 Inspired Oxygen (FIO2) 03/15/23 03/15/23 03/15/23 18:08 18:20 20:00 Temperature Pulse Rate 124 H 123 H 104 H Respiratory 18 Rate Blood Pressure 137/90 O2 Sat by Pulse 98 Oximetry Fraction of 35 Inspired Oxygen (FIO2) 03/15/23 20:15 Temperature Pulse Rate 108 H Respiratory Rate Blood Pressure O2 Sat by Pulse Oximetry Fraction of Inspired Oxygen (FIO2) Medical Decision Making - Medical Decision Making Was pt. sent in by a medical professional or institution (, PA, PESTICIDE USE MEDICAL COORDINATOR, urgent care, hospital, or [facility]...) When possible be specific @ -No Did you speak to anyone other than the patient for history (EMS, parent, family, police, friend...)? What history was obtained from this source @ -No Did you review nursing and triage notes (agree or disagree)? Why? @ -I reviewed and agree with nursing and triage notes Were old charts reviewed (outside hosp., previous admission, EMS record, old EKG, old radiological studies, urgent care reports/EKG's, [facility] records)? Report findings @ -Old charts reviewed. Differential Diagnosis (chest pain, altered mental status, abdominal pain women, abdominal pain men, vaginal bleeding, weakness, fever, dyspnea, syncope, headache, dizziness, GI bleed, back pain, seizure, CVA, palpatations, mental health, musculoskeletal)? @ -Differential Dyspnea: Coronary syndrome, arrhythmia, tamponade, asthma, COPD, pulmonary embolism, pneumonia, pneumothorax, pulmonary effusion, anaphylaxis, diabetic ketoacidosis, flailed chest, pulmonary contusion, diaphragmatic rupture, anemia, neuromuscular, this is not meant to be an all-inclusive list. EKG interpreted by me (3pts min.). @ -As above X-rays interpreted by me (1pt min.). @ -Chest x-ray reveals no obvious acute cardiopulmonary process. CT interpreted by me (1pt min.). @ -None done U/S interpreted by me (1pt. min.). @ -None done What testing was considered but not performed or refused? (CT, X-rays, U/S, labs)? Why? @ -None What meds were considered but not given or refused? Why? @ -None Did you discuss the management of the patient with other professionals (professionals i.e. , PA, PESTICIDE USE MEDICAL COORDINATOR, lab, RT, psych nurse, director of social services, human anatomy teacher, teacher, environmental technical officer, ed case manager)? Give summary @ -I discussed with the admitting physician, Dr. Ramachandran who accepted the patient. Was smoking cessation discussed for >3mins.? @ -No Was critical care preformed (if so, how long)? @ -Yes, 37 minutes. Were there social determinants of health that impacted care today? How? (Homelessness, low income, unemployed, alcoholism, drug addiction, transportation, low edu. Level, literacy, decrease access to med. care, m[facility], rehab)? @ -No Was there de-escalation of care discussed even if they declined (Discuss DNR or withdrawal of care, Hospice)? DNR status @ -No What co-morbidities impacted this encounter? (DM, HTN, Smoking, COPD, CAD, Cancer, CVA, ARF, Chemo, Hep., AIDS, mental health diagnosis, sleep apnea, morbid obesity)? @ -Chronic hypoxic respiratory failure, COPD Was patient admitted / discharged? Hospital course, mention meds given and route, prescriptions, significant lab abnormalities, going to OR and other pertinent info. @ -Patient with patient's presentation and physical exam, I suspect a COPD exacerbation. Cannot rule out infectious cause at this time either. We will obtain basic labs. Chest x-ray as well as viral swabs will be obtained. He'll be given a 1 L fluid bolus, and addition to DuoNeb treatment, IV magnesium, IV steroids. Patient was in agreement this plan. Currently is requiring 1 L more of a reaction to maintain saturations 93-94%. Due to the patient's increased work of breathing and did recommend BiPAP administration when she was in agreement with. EKG reveals sinus tachycardia.Chest x-ray reveals no obvious acute cardio pulmonary process. Patient's labs are remarkable for a leukocytosis of 17 which is likely secondary to dehydration as well as possible bronchitis. Patient's lactic acid is 2.8 likely secondary to dehydration. Troponin is undetectable. Viral signs negative. On reevaluation, patient's work of breathing is improved. Tachycardia has resolved with multiple fluid boluses. He says type breath sounds but is opening up more, less wheezing. Decreased work of breathing. Normoxic on BiPAP. Discussed workup. He will be admitted on IV antibiotics for bronchitis, we'll continue IV fluids, we'll continue to treat his COPD exacerbation. He was in agreement this plan. Pulmonology was consulted. I spoke with the admitting ph ysician, Dr. Ramachandran of [facility] who accepted the patient. Undiagnosed new problem with uncertain prognosis? @ -No Drug Therapy requiring intensive monitoring for toxicity (Heparin, Nitro, Insulin, Cardizem)? @ -No Were any procedures done? @ -No Diagnosis/symptom? @ -COPD Acute, or Chronic, or Acute on Chronic? @ -Acute on chronic Uncomplicated (without systemic symptoms) or Complicated (systemic symptoms)? @ -Complicated Side effects of treatment? @ -No Exacerbation, Progression, or Severe Exacerbation? @ -Exacerbation Poses a threat to life or bodily function? How? (Chest pain, [place], [place], pneumonia, PE, COPD, DKA, ARF, appy, cholecystitis, CVA, Diverticulitis, Homicidal, Suicidal, threat to staff... and all critical care pts) @ -Yes Diagnosis/symptom? @ -Hypoxic respiratory failure requiring when necessary noninvasive positive pressure ventilation Acute, or Chronic, or Acute on Chronic? @ -Acute on chronic Uncomplicated (without systemic symptoms) or Complicated (systemic symptoms)? @ -Complicated Side effects of treatment? @ -none Exacerbation, Progression, or Severe Exacerbation] @ -no Poses a threat to life or bodily function? @ -Yes Diagnosis/symptom? @ -Bronchitis, dehydration Acute, or Chronic, or Acute on Chronic? @ -Acute Uncomplicated (without systemic symptoms) or Complicated (systemic symptoms)? @ -Complicated Side effects of treatment? @ -none Exacerbation, Progression, or Severe Exacerbation] @ -no Poses a threat to life or bodily function? @ -yes - Lab Data Result diagrams: 03/15/23 16:52 03/15/23 16:52 Lab Results 03/15/23 03/15/23 03/15/23 Range/Units 16:52 16:52 16:52 WBC 17.1 H (3.8-10.6) k/uL RBC 4.87 (4.30-5.90) m/uL Hgb 15.1 (13.0-17.5) gm/dL Hct 45.1 (39.0-53.0) % MCV 92.6 (80.0-100.0) fL MCH 31.1 (25.0-35.0) pg MCHC 33.6 (31.0-37.0) g/dL RDW 12.7 (11.5-15.5) % Plt Count 253 (150-450) k/uL MPV 8.5 Neutrophils % 89 % Lymphocytes % 4 % Monocytes % 6 % Eosinophils % 0 % Basophils % 0 % Neutrophils # 15.1 H (1.3-7.7) k/uL Lymphocytes # 0.7 L (1.0-4.8) k/uL Monocytes # 1.1 H (0-1.0) k/uL Eosinophils # 0.1 (0-0.7) k/uL Basophils # 0.0 (0-0.2) k/uL PT 11.1 (10.0-12.5) sec INR 1.0 (<1.2) APTT 26.3 (22.0-30.0) sec VBG pH (7.31-7.41) VBG pCO2 (37-51) mmHg VBG HCO3 (24-28) mmol/L Sodium 140 (137-145) mmol/L Potassium 4.2 (3.5-5.1) mmol/L Chloride 99 (98-107) mmol/L Carbon Dioxide 29 (22-30) mmol/L Anion Gap 12 mmol/L BUN 23 H (9-20) mg/dL Creatinine 0.75 (0.66-1.25) mg/dL Est GFR (CKD-EPI)AfAm >90 (>60 ml/min/1.73 sqM) Est GFR (CKD-EPI)NonAf >90 (>60 ml/min/1.73 sqM) Glucose 185 H (74-99) mg/dL Lactic Ac Sepsis Rflx Plasma Lactic Acid Sabino (0.7-2.0) mmol/L Calcium 9.3 (8.4-10.2) mg/dL Total Bilirubin 0.8 (0.2-1.3) mg/dL AST 23 (17-59) U/L ALT 26 (4-49) U/L Alkaline Phosphatase 78 (38-126) U/L Troponin I (0.000-0.034) ng/mL Total Protein 6.9 (6.3-8.2) g/dL Albumin 4.1 (3.5-5.0) g/dL Influenza Type A (PCR) (Not Detectd) Influenza Type B (PCR) (Not Detectd) RSV (PCR) (Not Detectd) SARS-CoV-2 (PCR) (Not Detectd) 03/15/23 03/15/23 03/15/23 Range/Units 16:52 16:52 17:33 WBC (3.8-10.6) k/uL RBC (4.30-5.90) m/uL Hgb (13.0-17.5) gm/dL Hct (39.0-53.0) % MCV (80.0-100.0) fL MCH (25.0-35.0) pg MCHC (31.0-37.0) g/dL RDW (11.5-15.5) % Plt Count (150-450) k/uL MPV Neutrophils % % Lymphocytes % % Monocytes % % Eosinophils % % Basophils % % Neutrophils # (1.3-7.7) k/uL Lymphocytes # (1.0-4.8) k/uL Monocytes # (0-1.0) k/uL Eosinophils # (0-0.7) k/uL Basophils # (0-0.2) k/uL PT (10.0-12.5) sec INR (<1.2) APTT (22.0-30.0) sec VBG pH (7.31-7.41) VBG pCO2 (37-51) mmHg VBG HCO3 (24-28) mmol/L Sodium (137-145) mmol/L Potassium (3.5-5.1) mmol/L Chloride (98-107) mmol/L Carbon Dioxide (22-30) mmol/L Anion Gap mmol/L BUN (9-20) mg/dL Creatinine (0.66-1.25) mg/dL Est GFR (CKD-EPI)AfAm (>60 ml/min/1.73 sqM) Est GFR (CKD-EPI)NonAf (>60 ml/min/1.73 sqM) Glucose (74-99) mg/dL Lactic Ac Sepsis Rflx Plasma Lactic Acid Sabino 2.8 H* (0.7-2.0) mmol/L Calcium (8.4-10.2) mg/dL Total Bilirubin (0.2-1.3) mg/dL AST (17-59) U/L ALT (4-49) U/L Alkaline Phosphatase (38-126) U/L Troponin I <0.012 (0.000-0.034) ng/mL Total Protein (6.3-8.2) g/dL Albumin (3.5-5.0) g/dL Influenza Type A (PCR) Not Detected (Not Detectd) Influenza Type B (PCR) Not Detected (Not Detectd) RSV (PCR) Not Detected (Not Detectd) SARS-CoV-2 (PCR) Not Detected (Not Detectd) 03/15/23 03/15/23 Range/Units 17:45 18:39 WBC (3.8-10.6) k/uL RBC (4.30-5.90) m/uL Hgb (13.0-17.5) gm/dL Hct (39.0-53.0) % MCV (80.0-100.0) fL MCH (25.0-35.0) pg MCHC (31.0-37.0) g/dL RDW (11.5-15.5) % Plt Count (150-450) k/uL MPV Neutrophils % % Lymphocytes % % Monocytes % % Eosinophils % % Basophils % % Neutrophils # (1.3-7.7) k/uL Lymphocytes # (1.0-4.8) k/uL Monocytes # (0-1.0) k/uL Eosinophils # (0-0.7) k/uL Basophils # (0-0.2) k/uL PT (10.0-12.5) sec INR (<1.2) APTT (22.0-30.0) sec VBG pH 7.33 (7.31-7.41) VBG pCO2 66 H (37-51) mmHg VBG HCO3 35 H (24-28) mmol/L Sodium (137-145) mmol/L Potassium (3.5-5.1) mmol/L Chloride (98-107) mmol/L Carbon Dioxide (22-30) mmol/L Anion Gap mmol/L BUN (9-20) mg/dL Creatinine (0.66-1.25) mg/dL Est GFR (CKD-EPI)AfAm (>60 ml/min/1.73 sqM) Est GFR (CKD-EPI)NonAf (>60 ml/min/1.73 sqM) Glucose (74-99) mg/dL Lactic Ac Sepsis Rflx Y Plasma Lactic Acid [place] (0.7-2.0) mmol/L Calcium (8.4-10.2) mg/dL Total Bilirubin (0.2-1.3) mg/dL AST (17-59) U/L ALT (4-49) U/L Alkaline Phosphatase (38-126) U/L Troponin I (0.000-0.034) ng/mL Total Protein (6.3-8.2) g/dL Albumin (3.5-5.0) g/dL Influenza Type A (PCR) (Not Detectd) Influenza Type B (PCR) (Not Detectd) RSV (PCR) (Not Detectd) SARS-CoV-2 (PCR) (Not Detectd) - EKG Data -: EKG Interpreted by Me EKG Comments: 12-lead Electrocardiogram Interpretation Note EKG was reviewed and interpreted by myself. 12-lead ECG performed at 1655 is interpreted by me as revealing sinus tachycardia at a rate of 123 beats per minute. [place] is normal. [place] interval is 135 ms, QRS duration is 85 ms, QTc is 367 ms.. There were no ST or T wave abnormalities to suggest myocardial ischemia or injury. R wave progression across the precordium was satisfactory. By my interpretation this EKG is non-diagnostic for acute ischemia. Critical Care Time Critical Care Time: Yes Total Critical Care Time: 37 Disposition Clinical Impression: COPD (chronic obstructive pulmonary disease), Bronchitis, Dehydration, Acute and chronic respiratory failure Disposition: ADMITTED IP TO THIS HOSP Condition: Serious Time of Disposition: 19:45
[2023-03-15 18:17] LABS: Prothrombin Time 11.1 sec (10.0-12.5)
--- NOTE | 2023-03-15 18:27 | XR ---
EXAMINATION: XR chest 2V: 03/15/2023 5:57 PM CLINICAL INDICATION: difficulty breathing TECHNIQUE: Departmental protocol COMPARISON: 08/13/2022 FINDINGS: EKG leads. The lungs are clear. The pleural spaces are negative. The cardiac silhouette is not enlarged. The remainder of the mediastinal silhouette is unremarkable. The skeletal structures and soft tissues are negative for acute findings. IMPRESSION: No acute radiographic process.
[2023-03-15 19:08] LABS: VBG PH 7.33 (7.31-7.41)
[2023-03-15] MEDS ORDERED: ACETAMINOPHEN TAB 325 MG TAB PO PRN (19:52)
[2023-03-15] MEDS ORDERED: NALOXONE 0.4 MG/ML 1 ML VIAL IV PRN (19:52)
[2023-03-15] MEDS: IPRATROPIUM-ALBUTEROL 3 ML NEB INHALATION SCH ×2 (21:21→23:53)
[2023-03-15] MEDS: DOXYCYCLINE 100 MG in SODIUM CHLORIDE 0.9% 100 ML IVPB SCH (22:38)
[2023-03-16] MEDS: IPRATROPIUM-ALBUTEROL 3 ML NEB INHALATION SCH ×5 (03:18→20:54)
[2023-03-16] MEDS: ENOXAPARIN 40 MG/0.4 ML SYRINGE SQ SCH (08:56)
[2023-03-16] MEDS: DOXYCYCLINE 100 MG in SODIUM CHLORIDE 0.9% 100 ML IVPB SCH (08:56)
[2023-03-16] MEDS ORDERED: methylPREDNISolone SOD SUCCI 40 MG/ML 1 ML VIAL IV SCH (09:00)
[2023-03-16 09:11] LABS: Basophils % (A) 0 %; Eosinophils % (A) 0 %; HCT 42.9 % (39.0-53.0); HGB 13.9 gm/dL (13.0-17.5); Lymphocytes # (A) 0.5 k/uL (1.0-4.8); Lymphocytes % (A) 3 %; MCH 30.7 pg (25.0-35.0); MCHC 32.4 g/dL (31.0-37.0); MCV 94.6 fL (80.0-100.0); Mean Platelet Volume 8.7; Monocytes # (A) 0.2 k/uL (0-1.0); Monocytes % (A) 1 %; Neutrophils # (A) 14.6 k/uL (1.3-7.7); Neutrophils % (A) 95 %; Platelet Count 273 k/uL (150-450); RBC 4.53 m/uL (4.30-5.90); RDW 12.6 % (11.5-15.5); WBC 15.4 k/uL (3.8-10.6)
[2023-03-16 09:37] LABS: African American GFR (CKD) >90 (>60 ml/min/1.73 sqM); Anion Gap 13 mmol/L; Blood Urea Nitrogen 20 mg/dL (9-20); Calcium 8.8 mg/dL (8.4-10.2); Carbon Dioxide 24 mmol/L (22-30); Chloride 104 mmol/L (98-107); Glucose 255 mg/dL (74-99); Non-African American GFR(CKD) >90 (>60 ml/min/1.73 sqM); Potassium 4.8 mmol/L (3.5-5.1); Sodium 141 mmol/L (137-145)
[2023-03-16] MEDS: methylPREDNISolone SOD SUCCI 125 MG/2 ML VIAL IV SCH ×2 (11:14→17:39)
[2023-03-16] MEDS ORDERED: TRIAMCINOLONE 0.1% CREAM 80 GM TUBE TOPICAL PRN (14:54)
--- NOTE | 2023-03-16 15:45 | P.CNPUL ---
History of Present Illness Consult date: 03/16/23 Requesting physician: Kyler Ramachandran Reason for consult: dyspnea, cough, COPD Chief complaint: Shortness of breath. History of present illness: Pulmonary consult dated 03/16/2023. 62-year-old male with a known history of COPD, is seen in the emergency department, on March 15, for shortness of breath, and chest congestion, cough, and yellow phlegm production. The patient denied any fever or chills. He also denied any sick contacts. He apparently was trying to use his breathing treatments at home, but, they were not helping. The patient is seen today in room 358. Currently, he is on 3 L of oxygen. When he first came in, he was placed on BiPAP, with settings of 12/5 and 35%. He is also getting saline at 20 mL an hour. The patient has been smoking for 41 years, at 2-3 packs a day. After seeing him, in reviewing his medications, we added Solu-Medrol 60 mg every 6 hours, Symbicort 160/4.5, 2 puffs twice a day, and change his doxycycline from IV to by mouth. His past medical history includes COPD, hypertension, respiratory failure, chronic hypoxemic respiratory failure, and arthritis. Laboratory data includes a white count 15.4, hemoglobin 13.9, hematocrit 42.9, and a platelet count 273,000. Venous blood gases show pCO2 of 66, and a pH is 7.33. Sodium 141, potassium 4.8, chlorides 104, CO2 24, BUN 20, and creatinine 0.64. Testing for influenza, RSV, and coronavirus, were all negative. Chest x- ray showed nothing acute. Review of Systems REVIEW OF SYSTEMS: CONSTITUTIONAL: [Negative.] NEUROLOGIC: [ Negative.] HEENT: [ Negative.] CARDIAC: [Negative.] PULMONARY: Shortness of breath, cough, wheezing, chest tightness, and phlegm p roduction. GI: [Negative.] : [Negative.] RHEUMATOLOGIC: [ Negative.] IMMUNOLOGIC: [ Negative.] ENDOCRINE: [Negative. ] DERMATOLOGIC: [Negative.] Past Medical History Past Medical History: COPD, Hypertension Additional Past Medical History / Comment(s): Severe COPD with acute hypoxic respiratory failure, home O2 prn, tremors bilateral hands, arthritis bilateral hands. History of Any Multi-Drug Resistant Organisms: None Reported Past Surgical History: Orthopedic Surgery Additional Past Surgical History / Comment(s): left lower leg fracture with cherry eliud/no hardware, colonoscopy Past Anesthesia/Blood Transfusion Reactions: No Reported Reaction Past Psychological History: No Psychological Hx Reported Additional Psychological History / Comment(s): Pt resides alone. He is disabled. He uses no assistive device. He has oxygen that he uses prn and a nebulizer. Pt is illiterate. Smoking Status: Former smoker Past Alcohol Use History: None Reported Additional Past Alcohol Use History / Comment(s): Pt started smoking in 1975 and quit in 2015. He smoked 3 ppd. Past Drug Use History: None Reported - Past Family History Father Family Medical History: Congestive Heart Failure (CHF) Additional Family Medical History / Comment(s): Father of CHF at the age of 80yrs. Mother Family Medical History: Cancer Additional Family Medical History / Comment(s): Mother from melanoma in her 70s. Medications and Allergies Home Medications Medication Instructions Recorded Confirmed Type Albuterol Sulfate [Proair Hfa] 1 - 2 puff INHALATION RT-Q6H PRN 07/07/20 03/15/23 History Tiotropium [place] [Spiriva 2 puff INHALATION RT-DAILY 08/13/22 03/15/23 History Handihaler] Albuterol Nebulized [Ventolin 2.5 mg INHALATION RT-Q4H PRN #100 08/16/22 03/15/23 Rx Nebulized] ml Fluticasone Propion/Salmeterol 1 puff INHALATION RT-BID 03/15/23 03/15/23 History [Advair 250-50 Diskus] Mometasone Furoate [Elocon Cream 1 applic TOPICAL DAILY PRN 03/15/23 03/15/23 History 0.1%] Prostate Support Supplement 1 tab PO DAILY 03/15/23 03/15/23 History amLODIPine [Norvasc] 5 mg PO DAILY 03/15/23 03/15/23 History predniSONE 10 mg PO BID PRN 03/15/23 03/15/23 History Allergies Allergy/AdvReac Type Severity Reaction Status Date / Time No Known Allergies Allergy Verified 03/15/23 20:39 Physical Exam Osteopathic Statement: *. No significant issues noted on an osteopathic structural exam other than those noted in the History and Physical/Consult. Vitals: Vital Signs Temp Pulse Pulse Resp BP BP Pulse Ox 03/16/23 13:11 100 03/16/23 12:09 100 03/16/23 11:59 104 H 03/16/23 11:11 100 24 127/77 97 03/16/23 09:26 100 03/16/23 09:15 100 03/16/23 08:51 97.7 F 107 H 24 119/56 92 L 03/16/23 04:00 98.3 F 99 21 110/56 92 L 03/16/23 03:24 102 H 03/16/23 03:18 100 03/16/23 02:00 98 22 03/16/23 00:05 102 H 03/16/23 00:00 98.5 F 98 22 131/63 93 L 03/15/23 23:58 100 03/15/23 23:26 105 H 03/15/23 22:44 98.4 F 105 H 23 124/62 91 L 03/15/23 21:11 98.8 F 108 H 18 141/88 93 L 03/15/23 20:15 108 H 03/15/23 20:00 104 H 03/15/23 18:20 123 H 18 137/90 98 03/15/23 18:08 124 H 03/15/23 18:01 124 H 03/15/23 17:43 128 H 26 H 124/86 96 03/15/23 17:40 122 H 03/15/23 17:30 26 H 03/15/23 17:28 123 H 03/15/23 16:34 98.1 F 133 H 16 111/78 85 L FiO2 03/16/23 13:11 03/16/23 12:09 03/16/23 11:59 03/16/23 11:11 03/16/23 09:26 03/16/23 09:15 03/16/23 08:51 03/16/23 04:00 03/16/23 03:24 03/16/23 03:18 03/16/23 02:00 03/16/23 00:05 03/16/23 00:00 03/15/23 23:58 03/15/23 23:26 03/15/23 22:44 03/15/23 21:11 03/15/23 20:15 03/15/23 20:00 35 10/19/23 18:20 03/15/23 18:08 03/15/23 18:01 35 03/15/23 17:43 03/15/23 17:40 03/15/23 17:30 03/15/23 17:28 03/15/23 16:34 Intake and Output 03/16/23 03/16/23 03/16/23 06:59 14:59 22:59 Intake Total 575 Output Total 460 Balance 115 Intake: Oral 575 Output: Urine 460 Other: Voiding Method Urinal Urinal No acute distress, oriented 3. No conversational dyspnea or use of accessory muscles. Patient currently on 3 L. HEENT examination is grossly unremarkable. Mucous membranes are moist. No oral lesions. Neck supple. Full range of motion. No adenopathy thyromegaly or neck vein distention. Cardiovascular examination reveals regular rhythm rate. S1-S2 normal. No S3 or S4. No discernible murmur noted. Heart sounds are distant. Heart rate 100 bpm. Lungs reveal scattered bilateral expiratory wheezes and rhonchi. No crackles. Breath sounds equal bilaterally. There is prolongation. 3 L saturation is 97%. Abdomen soft bowel sounds are heard. No masses or tenderness. Extremities are intact. No cyanosis clubbing or edema. Skin is without rash or lesion. Neurologic examination is brief but nonfocal. Results - Laboratory Findings CBC and BMP: 03/16/23 08:02 03/16/23 08:02 PT/INR, D-dimer PT 11.1 sec (10.0-12.5) 03/15/23 16:52 INR 1.0 (<1.2) 03/15/23 16:52 Abnormal lab findings: Abnormal Labs 03/15/23 03/15/23 03/15/23 16:52 16:52 16:52 WBC 17.1 H Neutrophils # 15.1 H Lymphocytes # 0.7 L Monocytes # 1.1 H VBG pCO2 VBG HCO3 BUN 23 H Creatinine Glucose 185 H Plasma Lactic Acid Sabino 2.8 H* 03/15/23 03/16/23 03/16/23 18:39 08:02 08:02 WBC 15.4 H Neutrophils # 14.6 H Lymphocytes # 0.5 L Monocytes # VBG pCO2 66 H VBG HCO3 35 H BUN Creatinine 0.64 L Glucose 255 H Plasma Lactic Acid Sabino - Diagnostic Findings Chest x-ray: image reviewed Assessment and Plan Assessment: Acute hypoxemic respiratory failure, secondary to COPD exacerbation. History of heavy tobacco use, a 41 years, at 2-3 packs of cigarettes a day. Chronic hypoxemic respiratory failure, on home O2. History of hypertension. Plan: Plan dated 03/16/2023. The patient was placed on Solu-Medrol, 60 mg every 6 hours, and Symbicort 160/4.5, 2 puffs twice a day. In addition, we converted his IV doxycycline to doxycycline by mouth, 100 mg twice a day. The patient does smoke for about 41 years, at 2-3 packs of cigarettes a day. The patient can also use the BiPAP, at 12/5 and 35%, if he wishes. Labs, x-rays, and medications are reviewed. Progno sis is guarded. We will continue to follow the patient and make recommendations along the way. Time with Patient: Greater than 30
[2023-03-16] MEDS: SYMBICORT 160-4.5 MCG INHALER INHALATION SCH (20:54)
[2023-03-16] MEDS: DOXYCYCLINE 100 MG CAP PO SCH (21:08)
--- NOTE | 2023-03-16 22:41 | HP ---
HISTORY AND PHYSICAL HISTORY OF PRESENT ILLNESS: This is a 62-year-old white male with COPD, hypertension on 3 L nasal cannula at home, came to emergency room. Chest congestion, yellow green mucus, shortness of breath. Denies any complaints. History of bed bugs . No evidence of bedbugs in his body. Came to the ER. HOME MEDICINES: He takes, 1. Advair inhaler. 2. Spiriva inhaler. 3. Albuterol. 4. Elocon cream. 5. Norvasc 5 mg daily. 6. Prednisone 10 mg b.i.d. ALLERGIES: Negative. REVIEW OF SYSTEMS: A 14-point review of systems, cough, congestion, shortness of breath. PAST MEDICAL HISTORY: COPD, hypertension, home O2. SURGERIES: Orthopedic surgery. FAMILY HISTORY: Father with CHF. Mother, cancer, melanoma. PHYSICAL EXAMINATION: GENERAL: Xfao-nv-sybubnil distress. HEENT: Normocephalic, atraumatic. HEART: Tachycardic, S1, S2. SKIN: No rash or excoriations. NEUROLOGIC: Alert and oriented x4. ENDOCRINE: His BMI is over 40. VITAL SIGNS: Pulse is 120 to 130s in the ER, temp 98.1, respiratory rate 16 to 24, blood pressure 111/78. COPD exacerbation, bronchitis, IV fluids. Pulmonary is consulted. Wait for Pulmonary to see him. Continue with steroids, antibiotics, prognosis guarded. MMODL / IJN: [id number] /
[2023-03-17] MEDS: methylPREDNISolone SOD SUCCI 125 MG/2 ML VIAL IV SCH ×5 (01:20→23:25)
[2023-03-17 03:33] LABS: ALT 25 U/L (4-49); AST 20 U/L (17-59); African American GFR (CKD) >90 (>60 ml/min/1.73 sqM); Albumin 3.3 g/dL (3.5-5.0); Alkaline Phosphatase 82 U/L (38-126); Anion Gap 7 mmol/L; Blood Urea Nitrogen 24 mg/dL (9-20); Calcium 8.8 mg/dL (8.4-10.2); Carbon Dioxide 29 mmol/L (22-30); Chloride 101 mmol/L (98-107); Glucose 213 mg/dL (74-99); Non-African American GFR(CKD) >90 (>60 ml/min/1.73 sqM); Potassium 4.8 mmol/L (3.5-5.1); Sodium 137 mmol/L (137-145); Total Bilirubin 0.3 mg/dL (0.2-1.3); Total Protein 5.9 g/dL (6.3-8.2)
[2023-03-17] MEDS: amLODIPine 5 MG TAB PO SCH (08:25)
[2023-03-17] MEDS: SYMBICORT 160-4.5 MCG INHALER INHALATION SCH ×2 (08:25→20:51)
[2023-03-17] MEDS: IPRATROPIUM-ALBUTEROL 3 ML NEB INHALATION SCH ×4 (08:25→20:51)
[2023-03-17] MEDS: ENOXAPARIN 40 MG/0.4 ML SYRINGE SQ SCH (08:25)
[2023-03-17] MEDS: DOXYCYCLINE 100 MG CAP PO SCH ×2 (08:25→20:15)
--- NOTE | 2023-03-17 12:10 | P.PN ---
Subjective Progress Note Date: 03/17/23 Principal diagnosis: Shortness of breath/COPD exacerbation. Pulmonary consult dated 03/16/2023. 62-year-old male with a known history of COPD, is seen in the emergency department, on March 15, for shortness of breath, and chest congestion, cough, and yellow phlegm production. The patient denied any fever or chills. He also denied any sick contacts. He apparently was trying to use his breathing treatments at home, but, they were not helping. The patient is seen today in room 358. Currently, he is on 3 L of oxygen. When he first came in, he was placed on BiPAP, with settings of 12/5 and 35%. He is also getting saline at 20 mL an hour. The patient has been smoking for 41 years, at 2-3 packs a day. After seeing him, in reviewing his medications, we added Solu-Medrol 60 mg every 6 hours, Symbicort 160/4.5, 2 puffs twice a day, and change his doxycycline from IV to by mouth. His past medical history includes COPD, hypertension, respiratory failure, chronic hypoxemic respiratory failure, and arthritis. Laboratory data includes a white count 15.4, hemoglobin 13.9, hematocrit 42.9, and a platelet count 273,000. Venous blood gases show pCO2 of 66, and a pH is 7.33. Sodium 141, potassium 4.8, chlorides 104, CO2 24, BUN 20, and creatinine 0.64. Testing for influenza, RSV, and coronavirus, were all negative. Chest x- ray showed nothing acute. Progress note dated 03/17/2023. 62-year-old male who was minute with a diagnosis of COPD exacerbation. Curr ently, the patient is seen in room 358. He did not use BiPAP last night. He continues on oxygen at 2 L. He's not receiving any IV fluids. Labs today include a sodium 137, potassium 4.8, chlorides 101, CO2 29, BUN 24, and a creatinine of 0.66. Pro-calcitonin level was minimally elevated at 0.15. Blood cultures and sputum sampling is negative are pending. Chest x-ray showed no acute process. Objective - Vital Signs Vital signs: Vital Signs Temp 98.5 F 03/17/23 08:00 Pulse 92 03/17/23 11:00 Resp 24 03/17/23 11:00 BP 108/60 03/17/23 11:00 Pulse Ox 95 03/17/23 11:00 FiO2 35 03/15/23 20:00 Intake & Output 03/16/23 03/17/23 03/17/23 18:59 06:59 18:59 Intake Total 925 240 118 Output Total 460 Balance 465 240 118 Intake: Oral 925 240 118 Output: Urine 460 Other: Voiding Method Urinal Toilet Toilet # Voids 2 1 # Bowel Movements 1 - Exam No acute distress, oriented 3. No conversational dyspnea or use of accessory muscles. Patient currently on 2 L. HEENT examination is grossly unremarkable. Mucous membranes are moist. No oral lesions. Neck supple. Full range of motion. No adenopathy thyromegaly or neck vein distention. Cardiovascular examination reveals regular rhythm rate. S1-S2 normal. No S3 or S4. No discernible murmur noted. Heart sounds are distant. Heart rate 92 bpm. Lungs reveal scattered bilateral expiratory wheezes and rhonchi. No crackles. Breath sounds equal bilaterally. There is prolongation. 2 L saturation is 95 %. Abdomen soft bowel sounds are heard. No masses or tenderness. Extremities are intact. No cyanosis clubbing or edema. Skin is without rash or lesion. Neurologic examination is brief but nonfocal. - Labs CBC & Chem 7: 03/16/23 08:02 03/17/23 02:25 Labs: Abnormal Lab Results - Last 24 Hours (Table) 03/16/23 03/17/23 03/17/23 Range/Units 08:02 02:25 02:25 BUN 24 H (9-20) mg/dL Glucose 213 H (74-99) mg/dL Hemoglobin A1c 7.2 H (<=6.0) % Total Protein 5.9 L (6.3-8.2) g/dL Albumin 3.3 L (3.5-5.0) g/dL Procalcitonin 0.15 H (0.02-0.09) ng/mL Microbiology - Last 24 Hours (Table) 03/15/23 21:00 Gram Stain - Preliminary Sputum 03/15/23 21:00 Blood Culture - Preliminary Blood 03/15/23 21:15 Blood Culture - Preliminary Blood Assessment and Plan Assessment: Acute hypoxemic respiratory failure, secondary to COPD exacerbation. History of heavy tobacco use, a 41 years, at 2-3 packs of cigarettes a day. Chronic hypoxemic respiratory failure, on home O2. History of hypertension. Plan: Plan dated 03/16/2023. The patient was placed on Solu-Medrol, 60 mg every 6 hours, and Symbicort 160/4.5, 2 puffs twice a day. In addition, we converted his IV doxycycline to doxycycline by mouth, 100 mg twice a day. The patient does smoke for about 41 years, at 2-3 packs of cigarettes a day. The patient can also use the BiPAP, at 12/5 and 35%, if he wishes. Labs, x-rays, and medications are reviewed. Prognosis is guarded. We will continue to follow the patient and make recommendations along the way. Plan dated 03/17/2023. 62-year-old male was admitted with a diagnosis of COPD exacerbation. Currently, the patient's on standard therapy including Symbicort 160/4.5, 2 puffs twice a day, doxycycline, for a tracheobronchitis at 100 mg twice a day, albuterol sulfate and ipratropium bromide, 4 times a day and when necessary, and Solu- Medrol 60 mg every 6 hours. We will continue to follow the patient and make recommendations along the way. Prognosis is guarded. The patient's on 2 L. He's not receiving any IV fluids. Time with Patient: Less than 30
--- NOTE | 2023-03-17 15:22 | US ---
EXAMINATION TYPE: US abdomen limited DATE OF EXAM: 03/17/2023 COMPARISON: NONE CLINICAL INDICATION: Male, 62 years old with history of cirrhosis; Cirrhosis. Ascites check and RUQ. TECHNIQUE: Multiple sonographic images of the right upper quadrant are obtained. FINDINGS: EXAM MEASUREMENTS: Liver Length: 18.2 cm Gallbladder Wall: 0.16 cm CBD: 0.54 cm Right Kidney: 11.1 x 5.1 x 6.3 cm DOOR WORKER NOTES: Exam is limited due to overlying bowel gas. Pancreas: Not well seen Liver: Enlarged with increased echogenicity and attenuation. Coarse echotexture. Gallbladder: Appears wnl Evidence for sonographic Lo's sign: No CBD: Appears wnl Right Kidney: No hydronephrosis or masses seen Scanned the abdomen for ascites. No ascites seen at this time. IMPRESSION: 1. Hepatomegaly with increased attenuation and echogenicity consistent with the history of cirrhosis. 2. Unremarkable gallbladder and biliary tree. 3. No evidence of ascites 4. Unremarkable right kidney 5. Nonvisualization of the pancreas.
[2023-03-18] MEDS: methylPREDNISolone SOD SUCCI 125 MG/2 ML VIAL IV SCH ×3 (05:49→17:15)
[2023-03-18] MEDS: ENOXAPARIN 40 MG/0.4 ML SYRINGE SQ SCH (08:00)
[2023-03-18] MEDS: DOXYCYCLINE 100 MG CAP PO SCH ×2 (08:00→21:32)
[2023-03-18] MEDS: amLODIPine 5 MG TAB PO SCH (08:00)
[2023-03-18] MEDS: SYMBICORT 160-4.5 MCG INHALER INHALATION SCH ×2 (08:56→21:10)
[2023-03-18] MEDS: IPRATROPIUM-ALBUTEROL 3 ML NEB INHALATION SCH ×4 (08:56→21:10)
--- NOTE | 2023-03-18 11:13 | P.PN ---
Subjective Progress Note Date: 03/18/23 Principal diagnosis: Shortness of breath/COPD exacerbation. Pulmonary consult dated 03/16/2023. 62-year-old male with a known history of COPD, is seen in the emergency department, on March 15, for shortness of breath, and chest congestion, cough, and yellow phlegm production. The patient denied any fever or chills. He also denied any sick contacts. He apparently was trying to use his breathing treatments at home, but, they were not helping. The patient is seen today in room 358. Currently, he is on 3 L of oxygen. When he first came in, he was placed on BiPAP, with settings of 12/5 and 35%. He is also getting saline at 20 mL an hour. The patient has been smoking for 41 years, at 2-3 packs a day. After seeing him, in reviewing his medications, we added Solu-Medrol 60 mg every 6 hours, Symbicort 160/4.5, 2 puffs twice a day, and change his doxycycline from IV to by mouth. His past medical history includes COPD, hypertension, respiratory failure, chronic hypoxemic respiratory failure, and arthritis. Laboratory data includes a white count 15.4, hemoglobin 13.9, hematocrit 42.9, and a platelet count 273,000. Venous blood gases show pCO2 of 66, and a pH is 7.33. Sodium 141, potassium 4.8, chlorides 104, CO2 24, BUN 20, and creatinine 0.64. Testing for influenza, RSV, and coronavirus, were all negative. Chest x- ray showed nothing acute. Progress note dated 03/17/2023. 62-year-old male who was minute with a diagnosis of COPD exacerbation. Curr ently, the patient is seen in room 358. He did not use BiPAP last night. He continues on oxygen at 2 L. He's not receiving any IV fluids. Labs today include a sodium 137, potassium 4.8, chlorides 101, CO2 29, BUN 24, and a creatinine of 0.66. Pro-calcitonin level was minimally elevated at 0.15. Blood cultures and sputum sampling is negative are pending. Chest x-ray showed no acute process. Progress note dated 03/18/2023. 62-year-old male seen in consultation 2 days ago, for COPD exacerbation. The patient is seen today in room 358. The patient continues on oxygen at 3 L. No IV fluids. Clinically, he feels much improved. No new labs today. The patient denies any chest pain or chest discomfort. The patient states that he short of breath only when getting up to go to the bathroom. He denies any significant cough, wheezing, or phlegm production. Objective - Vital Signs Vital signs: Vital Signs Temp 98.0 F 03/18/23 07:56 Pulse 72 03/18/23 09:08 Resp 20 03/18/23 07:56 BP 108/64 03/18/23 07:56 Pulse Ox 97 03/18/23 08:58 FiO2 35 03/15/23 20:00 Intake & Output 03/17/23 03/18/23 03/18/23 18:59 06:59 18:59 Intake Total 118 240 Balance 118 240 Intake: Oral 118 240 Other: Voiding Method Toilet Toilet Toilet # Voids 3 2 1 # Bowel Movements 1 - Exam No acute distress, oriented 3. No conversational dyspnea or use of accessory muscles. Patient currently on 3 L. HEENT examination is grossly unremarkable. Mucous membranes are moist. No oral lesions. Neck supple. Full range of motion. No adenopathy thyromegaly or neck vein distention. Cardiovascular examination reveals regular rhythm rate. S1-S2 normal. No S3 or S4. No discernible murmur noted. Heart sounds are distant. Heart rate to bpm. Lungs reveal scattered bilateral expiratory wheezes and rhonchi. No crackles. Breath sounds equal bilaterally. There is prolongation. Saturation is 97% on 3 L, by nasal cannula. Abdomen soft bowel sounds are heard. No masses or tenderness. Extremities are intact. No cyanosis clubbing or edema. Skin is without rash or lesion. Neurologic examination is brief but nonfocal. - Labs CBC & Chem 7: 03/16/23 08:02 03/17/23 02:25 Labs: Microbiology - Last 24 Hours (Table) 03/15/23 21:00 Blood Culture - Preliminary Blood 03/15/23 21:15 Blood Culture - Preliminary Blood 03/15/23 21:00 Gram Stain - Preliminary Sputum Assessment and Plan Assessment: Acute hypoxemic respiratory failure, secondary to COPD exacerbation. History of heavy tobacco use, a 41 years, at 2-3 packs of cigarettes a day. Chronic hypoxemic respiratory failure, on home O2. History of hypertension. Plan: Plan dated 03/16/2023. The patient was placed on Solu-Medrol, 60 mg every 6 hours, and Symbicort 160/4.5, 2 puffs twice a day. In addition, we converted his IV doxycycline to doxycycline by mouth, 100 mg twice a day. The patient does smoke for about 41 years, at 2-3 packs of cigarettes a day. The patient can also use the BiPAP, at 12/5 and 35%, if he wishes. Labs, x-rays, and medications are reviewed. Prognosis is guarded. We will continue to follow the patient and make recommendations along the way. Plan dated 03/17/2023. 62-year-old male was admitted with a diagnosis of COPD exacerbation. Currently, the patient's on standard therapy including Symbicort 160/4.5, 2 puffs twice a day, doxycycline, for a tracheobronchitis at 100 mg twice a day, albuterol sulfate and ipratropium bromide, 4 times a day and when necessary, and Solu- Medrol 60 mg every 6 hours. We will continue to follow the patient and make recommendations along the way. Prognosis is guarded. The patient's on 2 L. He's not receiving any IV fluids. Plan dated 03/18/2023. The patient appears be doing a lot better. He continues on 3 L of oxygen. Saturations are in the mid 90s. He describes less shortness of breath, cough, wheezing, chest tightness, chest congestion. He is mostly short of breath when he gets up to go the bathroom. We will continue to follow the patient, and make recommendations along the way. The patient is currently not receiving any IV fluids. Prognosis is guarded. Time with Patient: Less than 30
--- NOTE | 2023-03-18 12:14 | CA ---
Transthoracic Echo Report Name: Gibson Etienne Age: 62 Gender: M : 1960 Exam Date: 03/17/2023 09:10 Exam Location: [facility] Ht (in): 66 Wt (lb): 220 Ordering Physician: Kyler Ramachandran MD Attending/Referring Phys: Executive Officer Jacqueline Little RDCS Procedure CPT: Indications: chf Cardiac Hx: Technical Quality: Technically difficult study Contrast 1: Total Dose (mL): Contrast 2: Total Dose (mL): MEASUREMENTS (Male / Female) Normal Values 2D ECHO LV Diastolic Diameter PLAX 3.3 cm 4.2 - 5.9 / 3.9 - 5.3 cm LV Systolic Diameter PLAX 2.5 cm IVS Diastolic Thickness 1.5 cm 0.6 - 1.0 / 0.6 - 0.9 cm LVPW Diastolic Thickness 1.5 cm 0.6 - 1.0 / 0.6 - 0.9 cm LV Relative Wall Thickness 0.9 RV Internal Dim ED PLAX 3.6 cm M-MODE Aortic Root Diameter MM 3.6 cm LA Systolic Diameter MM 3.2 cm LA Ao Ratio MM 0.9 AV Cusp Separation MM 1.7 cm DOPPLER AV Peak Velocity 115.3 cm/s AV Peak Gradient 5.3 mmHg AV Mean Velocity 81.3 cm/s AV Mean Gradient 3.0 mmHg AV Velocity Time Integral 21.0 cm LVOT Peak Velocity 108.1 cm/s LVOT Peak Gradient 4.7 mmHg LVOT Velocity Time Integral 22.4 cm MV Area PHT 3.1 cm??? Mitral E Point Velocity 69.8 cm/s Mitral A Point Velocity 84.1 cm/s Mitral E to A Ratio 0.8 MV Deceleration Time 241.3 ms MV E' Velocity 6.2 cm/s Mitral E to MV E' Ratio 11.3 FINDINGS Left Ventricle Moderately increased left ventricular wall thickness. Left ventricular cavity size normal. Normal left ventricular systolic function with no obvious regional wall motion abnormalities. Left ventricular ejection fraction is estimated at 55-60 %. Right Ventricle Normal right ventricular size and function. Right ventricular systolic pressure within normal limits. Right Atrium Normal right atrial size. Left Atrium Normal left atrial size. Mitral Valve Structurally normal mitral valve. No mitral stenosis, regurgitation or prolapse. Mild mitral annular calcification. Aortic Valve Trileaflet aortic valve. No aortic valve stenosis or regurgitation. Tricuspid Valve Structurally normal tricuspid valve. Trace to mild tricuspid regurgitation. Pulmonic Valve Trace pulmonic regurgitation. Pericardium Small pericardial effusion Aorta Normal size aortic root and proximal ascending aorta. CONCLUSIONS Technically difficult study. Normal LV size and no LV systolic function. EF estimated at 55-60% Wall motion cannot be commented due to limited nature of echo Normal LV size and systolic function No significant LA/ RA dilatation Normal function could not be commented upon due to poor Doppler assessment Small pericardial effusion Previewed by: Dr Gonsalo Crawford (Electronically Signed) Final Date: 18 March 2023 12:13
[2023-03-18] MEDS: FUROSEMIDE 20 MG TAB PO SCH (13:53)
[2023-03-18 16:19] LABS: Glucose,Whole Blood 313 mg/dL (70-110)
[2023-03-18] MEDS: INSULIN ASPART (NovoLOG) 100 UNIT/ML VIAL SQ SCH ×2 (16:42→21:31)
[2023-03-18 19:14] LABS: Glucose,Whole Blood 263 mg/dL (70-110)
--- NOTE | 2023-03-18 20:08 | PN ---
PROGRESS NOTE The patient is on DuoNeb updrafts, Norvasc for hypertension, IV Solu-Medrol, DuoNeb and Symbicort for his COPD exacerbation. White count high at 15.4. BUN is 24, creatinine 0.66. Sugars are in mid 200s. Hemoglobin A1c is 7.2, diabetic. Procalcitonin high at 0.15. Possibly put him on Farxiga for diabetes, for weight loss. Continue with breathing treatments, etc., updrafts. Prognosis guarded. Possibly go home soon. MMODL / IJN: [id number] /
[2023-03-19] MEDS: methylPREDNISolone SOD SUCCI 125 MG/2 ML VIAL IV SCH ×4 (00:14→18:11)
[2023-03-19 05:37] LABS: Glucose,Whole Blood 185 mg/dL (70-110)
[2023-03-19] MEDS: INSULIN ASPART (NovoLOG) 100 UNIT/ML VIAL SQ SCH ×4 (06:50→21:09)
[2023-03-19] MEDS: metFORMIN 500 MG TAB PO SCH (06:50)
[2023-03-19] MEDS: IPRATROPIUM-ALBUTEROL 3 ML NEB INHALATION SCH ×4 (08:08→20:53)
[2023-03-19] MEDS: SYMBICORT 160-4.5 MCG INHALER INHALATION SCH ×2 (08:08→20:53)
[2023-03-19] MEDS: FUROSEMIDE 20 MG TAB PO SCH (09:31)
[2023-03-19] MEDS: ENOXAPARIN 40 MG/0.4 ML SYRINGE SQ SCH (09:31)
[2023-03-19] MEDS: amLODIPine 5 MG TAB PO SCH (09:31)
[2023-03-19] MEDS: DOXYCYCLINE 100 MG CAP PO SCH ×2 (09:32→21:10)
[2023-03-19 11:28] LABS: Glucose,Whole Blood 259 mg/dL (70-110)
--- NOTE | 2023-03-19 15:01 | P.PN ---
Subjective Progress Note Date: 03/19/23 62-year-old male with a known history of COPD, is seen in the emergency department, on March 15, for shortness of breath, and chest congestion, cough, and yellow phlegm production. The patient denied any fever or chills. He also denied any sick contacts. He apparently was trying to use his breathing treatments at home, but, they were not helping. The patient is seen today in room 358. Currently, he is on 3 L of oxygen. When he first came in, he was placed on BiPAP, with settings of 12/5 and 35%. He is also getting saline at 20 mL an hour. The patient has been smoking for 41 years, at 2-3 packs a day. After seeing him, in reviewing his medications, we added Solu-Medrol 60 mg every 6 hours, Symbicort 160/4.5, 2 puffs twice a day, and change his doxycycline from IV to by mouth. His past medical history includes COPD, hypertension, respiratory failure, chronic hypoxemic respiratory failure, and arthritis. Laboratory data includes a white count 15.4, hemoglobin 13.9, hematocrit 42.9, and a platelet count 273,000. Venous blood gases show pCO2 of 66, and a pH is 7.33. Sodium 141, potassium 4.8, chlorides 104, CO2 24, BUN 20, and creatinine 0.64. Testing for influenza, RSV, and coronavirus, were all negative. Chest x- ray showed nothing acute. Progress note dated 03/17/2023. 62-year-old male who was minute with a diagnosis of COPD exacerbation. Currently, the patient is seen in room 358. He did not use BiPAP last night. He continues on oxygen at 2 L. He's not receiving any IV fluids. Labs today include a sodium 137, potassium 4.8, chlorides 101, CO2 29, BUN 24, and a creatinine of 0.66. Pro-calcitonin level was minimally elevated at 0.15. Blood cultures and sputum sampling is negative are pending. Chest x-ray showed no acute process. Progress note dated 03/18/2023. 62-year-old male seen in consultation 2 days ago, for COPD exacerbation. The patient is seen today in room 358. The patient continues on oxygen at 3 L. No IV fluids. Clinically, he feels much improved. No new labs today. The patient denies any chest pain or chest discomfort. The patient states that he short of breath only when getting up to go to the bathroom. He denies any significant cough, wheezing, or phlegm production. On 03/19/2023, the patient is currently off the BiPAP and the patient is currently on 3 L of oxygen by nasal cannula. Breath sounds are quite diminished bilaterally and the patient has been COPD. Feeling essentially the same. Remains on bronchodilators. Remains on Symbicort. Remains on DuoNeb. Remains on IV Solu-Medrol. No chest pain. No signs of any CO2 narcosis altered mentation. No hemoptysis. No pleurisy. No other complaints and no new labs are available from today. Objective - Vital Signs Vital signs: Vital Signs Temp 97.8 F 03/19/23 07:22 Pulse 88 03/19/23 08:23 Resp 18 03/19/23 07:22 BP 126/80 03/19/23 07:22 Pulse Ox 98 03/19/23 08:09 FiO2 35 03/15/23 20:00 Intake & Output 03/18/23 03/19/23 03/19/23 18:59 06:59 18:59 Output Total 300 300 Balance -300 -300 Output: Urine 300 300 Other: Voiding Method Toilet Toilet # Voids 1 - Exam No acute distress, oriented 3. No conversational dyspnea or use of accessory muscles. Patient currently on 3 L. HEENT examination is grossly unremarkable. Mucous membranes are moist. No oral lesions. Neck supple. Full range of motion. No adenopathy thyromegaly or neck vein distention. Cardiovascular examination reveals regular rhythm rate. S1-S2 normal. No S3 or S4. No discernible murmur noted. Heart sounds are distant. Heart rate to bpm. Lungs reveal scattered bilateral expiratory wheezes and rhonchi. No crackles. Breath sounds equal bilaterally. There is prolongation. Saturation is 97% on 3 L, by nasal cannula. Abdomen soft bowel sounds are heard. No masses or tenderness. Extremities are intact. No cyanosis clubbing or edema. Skin is without rash or lesion. Neurologic examination is brief but nonfocal. - Labs CBC & Chem 7: 03/16/23 08:02 03/17/23 02:25 Labs: Abnormal Lab Results - Last 24 Hours (Table) 03/18/23 03/18/23 03/19/23 Range/Units 16:17 19:13 05:36 POC Glucose (mg/dL) 313 H 263 H 185 H (70-110) mg/dL 03/19/23 Range/Units 11:26 POC Glucose (mg/dL) 259 H (70-110) mg/dL Microbiology - Last 24 Hours (Table) 03/15/23 21:00 Blood Culture - Preliminary Blood 03/15/23 21:15 Blood Culture - Preliminary Blood 03/15/23 21:00 Gram Stain - Final Sputum Sputum Culture - Final Haemophilus influenzae Assessment and Plan Plan: Acute hypoxemic respiratory failure, secondary to COPD exacerbation. History of heavy tobacco use, a 41 years, at 2-3 packs of cigarettes a day. Chronic hypoxemic respiratory failure, on home O2. History of hypertension. Plan: Advanced COPD and the patient will be kept on the same treatment for now. No need for BiPAP therapy, however this can be used on an as-needed basis for worsening shortness of breath Continue bronchodilators Continue steroids Continue oxygen therapy and titrate oxygen flow to maintain saturation above 90% Continue blood sugar management Lovenox for DVT prophylaxis We'll continue to follow
[2023-03-19 16:27] LABS: Glucose,Whole Blood 282 mg/dL (70-110)
[2023-03-19 20:28] LABS: Glucose,Whole Blood 277 mg/dL (70-110)
[2023-03-20] MEDS: methylPREDNISolone SOD SUCCI 125 MG/2 ML VIAL IV SCH (00:23)
--- NOTE | 2023-03-20 01:14 | PN ---
PROGRESS NOTE SUBJECTIVE: This is a 62-year-old white male with COPD, chest pain. Says he is breathing little bit better, possibly get ready to go home soon. OBJECTIVE: VITAL SIGNS: Temperature 98.1, pulse is 102, blood pressure 130/73, and O2 96 on 2 L. CARDIOVASCULAR: S1, S2. LUNGS: Scattered rhonchi and wheeze. HEMATOLOGY: Negative for Homans. PSYCH: Fair mood and affect. ASSESSMENT: COPD, hypertension, diastolic heart failure, acute hypoxic respiratory failure, possible aspiration pneumonia, possibly discharge home tomorrow as he is doing better. Risk factor modification, talked to patient. Prognosis guarded. MMODL / IJN: [id number] /
[2023-03-20 01:42] VITALS: TEMP 98.4
[2023-03-20 06:04] LABS: Glucose,Whole Blood 166 mg/dL (70-110)
[2023-03-20] MEDS: INSULIN ASPART (NovoLOG) 100 UNIT/ML VIAL SQ SCH ×2 (06:19→12:38)
[2023-03-20] MEDS: metFORMIN 500 MG TAB PO SCH (06:19)
[2023-03-20] MEDS: ENOXAPARIN 40 MG/0.4 ML SYRINGE SQ SCH (08:10)
[2023-03-20] MEDS: DOXYCYCLINE 100 MG CAP PO SCH (08:10)
[2023-03-20] MEDS: amLODIPine 5 MG TAB PO SCH (08:10)
[2023-03-20] MEDS: FUROSEMIDE 20 MG TAB PO SCH (08:10)
[2023-03-20] MEDS: IPRATROPIUM-ALBUTEROL 3 ML NEB INHALATION SCH ×2 (08:25→11:28)
[2023-03-20] MEDS: SYMBICORT 160-4.5 MCG INHALER INHALATION SCH (08:26)
[2023-03-20 08:38] VITALS: BP 129/77; RESP 18
[2023-03-20] MEDS ORDERED: methylPREDNISolone 4 MG TAB TAPER PO SCH (09:00)
[2023-03-20 11:13] LABS: Glucose,Whole Blood 160 mg/dL (70-110)
[2023-03-20 11:37] VITALS: PULSE 92
--- NOTE | 2023-03-20 13:40 | P.PN ---
Subjective Progress Note Date: 03/20/23 62-year-old male with a known history of COPD, is seen in the emergency department, on March 15, for shortness of breath, and chest congestion, cough, and yellow phlegm production. The patient denied any fever or chills. He also denied any sick contacts. He apparently was trying to use his breathing treatments at home, but, they were not helping. The patient is seen today in room 358. Currently, he is on 3 L of oxygen. When he first came in, he was placed on BiPAP, with settings of 12/5 and 35%. He is also getting saline at 20 mL an hour. The patient has been smoking for 41 years, at 2-3 packs a day. After seeing him, in reviewing his medications, we added Solu-Medrol 60 mg every 6 hours, Symbicort 160/4.5, 2 puffs twice a day, and change his doxycycline from IV to by mouth. His past medical history includes COPD, hypertension, respiratory failure, chronic hypoxemic respiratory failure, and arthritis. Laboratory data includes a white count 15.4, hemoglobin 13.9, hematocrit 42.9, and a platelet count 273,000. Venous blood gases show pCO2 of 66, and a pH is 7.33. Sodium 141, potassium 4.8, chlorides 104, CO2 24, BUN 20, and creatinine 0.64. Testing for influenza, RSV, and coronavirus, were all negative. Chest x- ray showed nothing acute. Progress note dated 03/17/2023. 62-year-old male who was minute with a diagnosis of COPD exacerbation. Currently, the patient is seen in room 358. He did not use BiPAP last night. He continues on oxygen at 2 L. He's not receiving any IV fluids. Labs today include a sodium 137, potassium 4.8, chlorides 101, CO2 29, BUN 24, and a creatinine of 0.66. Pro-calcitonin level was minimally elevated at 0.15. Blood cultures and sputum sampling is negative are pending. Chest x-ray showed no acute process. Progress note dated 03/18/2023. 62-year-old male seen in consultation 2 days ago, for COPD exacerbation. The patient is seen today in room 358. The patient continues on oxygen at 3 L. No IV fluids. Clinically, he feels much improved. No new labs today. The patient denies any chest pain or chest discomfort. The patient states that he short of breath only when getting up to go to the bathroom. He denies any significant cough, wheezing, or phlegm production. On 03/19/2023, the patient is currently off the BiPAP and the patient is currently on 3 L of oxygen by nasal cannula. Breath sounds are quite diminished bilaterally and the patient has been COPD. Feeling essentially the same. Remains on bronchodilators. Remains on Symbicort. Remains on DuoNeb. Remains on IV Solu-Medrol. No chest pain. No signs of any CO2 narcosis altered mentation. No hemoptysis. No pleurisy. No other complaints and no new labs are available from today. On today's evaluation of 03/20/2023, the patient is on 3 L of oxygen by nasal cannula. Slightly improved compared to yesterday. Remains on Symbicort. Remains on DuoNeb about treatments [id number]. He is doing pursed lip breathing. No chest pain. No pleurisy. No hemoptysis. No altered mentation. No signs of any CO2 narcosis. No new labs are available from today. We'll continue same treatment. He is not requiring BiPAP for respiratory support. Objective - Vital Signs Vital signs: Vital Signs Temp 98.4 F 03/20/23 07:06 Pulse 96 03/20/23 08:47 Resp 18 03/20/23 07:06 BP 129/77 03/20/23 07:06 Pulse Ox 99 03/20/23 07:06 FiO2 35 03/15/23 20:00 Intake & Output 03/19/23 03/20/23 03/20/23 18:59 06:59 18:59 Output Total 300 Balance -300 Output: Urine 300 Other: Voiding Method Toilet # Voids 3 - Exam No acute distress, oriented 3. No conversational dyspnea or use of accessory muscles. Patient currently on 3 L. HEENT examination is grossly unremarkable. Mucous membranes are moist. No oral lesions. Neck supple. Full range of motion. No adenopathy thyromegaly or neck vein distention. Cardiovascular examination reveals regular rhythm rate. S1-S2 normal. No S3 or S4. No discernible murmur noted. Heart sounds are distant. Heart rate to bpm. Lungs reveal scattered bilateral expiratory wheezes and rhonchi. No crackles. Breath sounds equal bilaterally. There is prolongation. Saturation is 97% on 3 L, by nasal cannula. Abdomen soft bowel sounds are heard. No masses or tenderness. Extremities are intact. No cyanosis clubbing or edema. Skin is without rash or lesion. Neurologic examination is brief but nonfocal. - Labs CBC & Chem 7: 03/16/23 08:02 03/17/23 02:25 Labs: Abnormal Lab Results - Last 24 Hours (Table) 03/19/23 03/19/23 03/19/23 Range/Units 11:26 16:26 20:24 POC Glucose (mg/dL) 259 H 282 H 277 H (70-110) mg/dL 03/20/23 03/20/23 Range/Units 06:02 11:10 POC Glucose (mg/dL) 166 H 160 H (70-110) mg/dL Microbiology - Last 24 Hours (Table) 03/15/23 21:00 Blood Culture Gram Stain - Preliminary Blood Blood Culture - Preliminary Assessment and Plan Plan: Acute hypoxemic respiratory failure, secondary to COPD exacerbation. The patient is clinically improving and the patient remains on 3 L of oxygen by nasal cannula Acute COPD exacerbation with secondary shortness of breath Shortness of breath secondary to above Advanced oxygen-dependent COPD History of heavy tobacco use, a 41 years, at 2-3 packs of cigarettes a day. Chronic hypoxemic respiratory failure, on home O2. History of hypertension. Plan: Slightly improved compared to yesterday and seems to be less short of breath Advanced COPD and the patient will be kept on the same treatment for now. No need for BiPAP therapy, however this can be used on an as-needed basis for worsening shortness of breath Continue bronchodilators Continue steroids Continue oxygen therapy and titrate oxygen flow to maintain saturation above 90% Continue blood sugar management Lovenox for DVT prophylaxis We'll continue to follow
--- NOTE | 2023-03-20 22:42 | P.CONS ---
History of Present Illness - Reason for Consult Consult date: 03/20/23 Positive blood culture Requesting physician: Kyler Ramachandran - Chief Complaint Shortness of breath and cough x few days - History of Present Illness Patient is a 62-year-old male with a past medical history significant for COPD on home 2 L nasal cannula oxygen also with history of hypertension patient presented to the hospital 5 days ago for evaluation of increasing shortness of breath chest congestion and a cough which has been moderate intensity and is bringing up some purulent sputum. Denies having any hemoptysis or any chest pain and denies high-grade fever no fever was noticed on presentation to the hospital patient was hypoxic with O2 sat 75% on room air however currently seems to be doing well sats of 99 to 96% on 2 L nasal cannula which is baseline for him patient on admission to hospital did have vital 17 point 1 repeat is 15.4 however no CBC has been done over the last 4 days did have a normal BUN and creatinine levels are normal mildly elevated procalcitonin 0.15 patient did have a chest x-ray on admission no acute radiographic process p atient has been treated with steroids bronchodilators and doxycycline sputum culture grew Haemophilus influenzae blood cultures growing gram-positive bacilli that has prompted this infectious disease consultation, patient mention overall feeling better his breathing is back to baseline patient denies having any chest pain cough or decreased intensity no nausea vomiting no abdominal pain no diarrhea and the patient insisting on going home Review of Systems Positive point and negatives has been mentioned in the HPI, complete review of systems was performed and all other systems are negative Past Medical History Past Medical History: COPD, Hypertension Additional Past Medical History / Comment(s): Severe COPD with acute hypoxic respiratory failure, home O2 prn, tremors bilateral hands, arthritis bilateral hands. History of Any Multi-Drug Resistant Organisms: None Reported Past Surgical History: Orthopedic Surgery Additional Past Surgical History / Comment(s): left lower leg fracture with surgery/no hardware, colonoscopy Past Anesthesia/Blood Transfusion Reactions: No Reported Reaction Past Psychological History: No Psychological Hx Reported Additional Psychological History / Comment(s): Pt resides alone. He is disabled. He uses no assistive device. He has oxygen that he uses prn and a nebulizer. Pt is illiterate. Smoking Status: Former smoker Past Alcohol Use History: None Reported Additional Past Alcohol Use History / Comment(s): Pt started smoking in 1975 and quit in 2016. He smoked 3 ppd. Past Drug Use History: None Reported - Past Family History Father Family Medical History: Congestive Heart Failure (CHF) Additional Family Medical History / Comment(s): Father of CHF at the age of 80yrs. Mother Family Medical History: Cancer Additional Family Medical History / Comment(s): Mother from melanoma in her 70s. Medications and Allergies Home Medications Medication Instructions Recorded Confirmed Type Albuterol Sulfate [Proair Hfa] 1 - 2 puff INHALATION RT-Q6H PRN 07/07/20 03/15/23 History Tiotropium [place] [Spiriva 2 puff INHALATION RT-DAILY 08/13/22 03/15/23 History Handihaler] Mometasone Furoate [Elocon Cream 1 applic TOPICAL DAILY PRN 03/15/23 03/15/23 History 0.1%] Prostate Support Supplement 1 tab PO DAILY 03/15/23 03/15/23 History amLODIPine [Norvasc] 5 mg PO DAILY 03/15/23 03/15/23 History predniSONE 10 mg PO BID PRN 03/15/23 03/15/23 History Budesonide-Formot 160-4.5 Mcg 2 puff INHALATION RT-BID 30 Days 03/20/23 Rx [Symbicort 160-4.5 Mcg Inhaler] #1 each Furosemide [Lasix] 20 mg PO DAILY 30 Days #30 tab 03/20/23 Rx Ipratropium-Albuterol Nebulize 3 ml INHALATION RT-QID 30 Days 03/20/23 Rx [Duoneb 0.5 mg-3 mg/3 ml Soln] #120 each cefUROXime axetiL [Ceftin] 500 mg PO BID 4 Days #8 tab 03/20/23 Rx metFORMIN HCL [Glucophage] 500 mg PO W/BRKFST 30 Days #30 tab 03/20/23 Rx methylPREDNISolone Dose Pack 24 mg PO DAILY 5 Days #1 tab 03/20/23 Rx [Medrol Dose Pack] Allergies Allergy/AdvReac Type Severity Reaction Status Date / Time No Known Allergies Allergy Verified 03/15/23 20:39 Physical Exam Vitals: Vital Signs Temp Pulse Pulse Resp BP Pulse Ox 03/20/23 11:43 92 03/20/23 11:30 92 03/20/23 08:47 96 03/20/23 08:27 95 03/20/23 07:06 98.4 F 95 18 129/77 99 03/20/23 01:25 98.4 F 91 123/72 90 L 03/19/23 21:05 86 03/19/23 20:54 86 03/19/23 20:00 98.1 F 102 H 16 130/73 96 03/19/23 15:57 88 03/19/23 15:49 84 03/19/23 13:53 98.3 F 88 18 115/55 98 Intake and Output 03/19/23 03/20/23 03/20/23 22:59 06:59 14:59 Other: Voiding Method Toilet # Voids 3 GENERAL DESCRIPTION: Middle-aged male lying in bed, no distress. No tachypnea or accessory muscle of respiration use. HEENT: Shows Pallor , no scleral icterus. Oral mucous membrane is dry. No pharyngeal erythema or thrush NECK: Trachea central, no thyromegaly. LUNGS: Unlabored breathing. Coarse breath sounds bilaterally. HEART: S1, S2, regular rate and rhythm. No loud murmur ABDOMEN: Soft, no tenderness , EXTREMITIES: No edema of feet. SKIN: No rash, no masses palpable. NEUROLOGICAL: The patient is awake, alert, oriented x3, mood and affect normal. Results CBC & Chem 7: 03/16/23 08:02 03/17/23 02:25 Labs: Abnormal Lab Results - Last 24 Hours (Table) 03/19/23 03/19/23 03/20/23 Range/Units 16:26 20:24 06:02 POC Glucose (mg/dL) 282 H 277 H 166 H (70-110) mg/dL 03/20/23 Range/Units 11:10 POC Glucose (mg/dL) 160 H (70-110) mg/dL Microbiology - Last 24 Hours (Table) 03/15/23 21:00 Blood Culture Gram Stain - Preliminary Blood Blood Culture - Preliminary Assessment and Plan (1) Tracheobronchitis Status: Acute Code(s): J40 - BRONCHITIS, NOT SPECIFIED ACUTE OR CHRONIC SNOMED Code(s): 18792830 (2) Positive blood culture Status: Acute Code(s): R78.81 - BACTEREMIA SNOMED Code(s): 698695542 Plan: 1patient with a positive blood culture with gram-positive bacilli is more likely skin contamination as patient has no clinical disease to go along with it 2-patient presented to hospital with shortness of breath and cough likely COPD exacerbation with a purulent tracheobronchitis with a sputum showing Haemophilus influenzae 3-as the patient insisting on going home we will give him a dose of Rocephin x1 afterwards short course of oral Ceftin on discharge and discontinue doxycycline, no need for vancomycin 4-steroids and bronchodilators per pulmonary Thank you for this consultation prescription was sent to the pharmacy Time with Patient: Greater than 30
== END 2023-03-20 15:02 | disposition home or self-care (01) | DRG 140 ==
LOC: EC 16:24 → 3SCARD 19:52 → 4SSUR 03-18 17:50
PROVIDERS: ADMIT Family Medicine; ATTEND Family Medicine
PROC: 5A09357 Assistance with Respiratory Ventilation, Less than 24 Consecutive Hours, Continuous Positive Airway Pressure (ICD-10-PCS; principal; 2023-03-15)
DX: J44.1 Chronic obstructive pulmonary disease with (acute) exacerbation (principal); J20.1 Acute bronchitis due to Hemophilus influenzae; J44.0 Chronic obstructive pulmonary disease with (acute) lower respiratory infection; E86.0 Dehydration; J69.0 Pneumonitis due to inhalation of food and vomit; I11.0 Hypertensive heart disease with heart failure; I50.32 Chronic diastolic (congestive) heart failure; I07.1 Rheumatic tricuspid insufficiency; I31.39 Other pericardial effusion (noninflammatory); J96.21 Acute and chronic respiratory failure with hypoxia; M19.041 Primary osteoarthritis, right hand; M19.042 Primary osteoarthritis, left hand; R25.1 Tremor, unspecified; F17.210 Nicotine dependence, cigarettes, uncomplicated; Z20.822 Contact with and (suspected) exposure to COVID-19; S27.0XXA Traumatic pneumothorax, initial encounter; Z79.51 Long term (current) use of inhaled steroids; Z79.84 Long term (current) use of oral hypoglycemic drugs; Z79.899 Other long term (current) drug therapy; Z82.49 Family history of ischemic heart disease and other diseases of the circulatory system; Z99.81 Dependence on supplemental oxygen
CPT/HCPCS: 36415; 71046; 76705; 80048; 80053; 82140; 82803; 83036; 83605; 84145; 84484; 85025; 85379; 85610; 85730; 87040; 87070; 87205; 87636; 93005; 93306; 94640; 94660; 94760; 96365; 96375; 99291

== ENCOUNTER → 2023-11-13 | Outpatient (CLI) | payer MEDICARE, OTHER ==
--- NOTE | 2023-11-18 11:30 | CTL ---
EXAMINATION TYPE: CT Low Dose Lung DATE OF EXAM ORDERED: 11/13/2023 HISTORY: . Lung cancer screening CT DLP: [address] CTDI: 3.1 mGy Automated exposure control for dose reduction was used. SCREENING VISIT: Subsequent COMPARISON: 11/08/2022 TECHNIQUE: Low dose computed tomography scan was performed through the chest at 1 mm thick sections a nd reconstructed images in the coronal plane at [address] DIAGNOSTIC QUALITY: Satisfactory FINDINGS: LUNG NODULES: None. LUNGS: COPD: Severity: Moderate. Some chronic bronchitis may be present. Fibrosis: Severity: None Lymph nodes: None Other findings: None RIGHT PLEURAL SPACE: Effusion: None Calcification: None Thickening: None Pneumothorax: None LEFT PLEURAL SPACE: Effusion: None Calcification: None Thickening: None Pneumothorax: None HEART: Other: Ascending thoracic aorta at the level the main pulmonary artery measures 3.5 cm. The main pul monary artery at the bifurcation measures 2.9 cm. Heart Size: Normal Coronary calcification: Moderate Pericardial effusion: None OTHER FINDINGS: Upper abdomen: Normal Bony thorax: Normal Supraclavicular region: Normal IMPRESSION: Benign appearance FOLLOW UP CT CHEST RECOMMENDATION: Follow-up low-dose CT chest one year CT LUNG RAD: Lung-Rad 2 Benign Appearance or Behavior
== END | disposition home or self-care (01) ==
LOC: RADCTMAIN 09:22
PROVIDERS: ATTEND Internal Medicine
DX: Z12.2 Encounter for screening for malignant neoplasm of respiratory organs (principal); Z87.891 Personal history of nicotine dependence
CPT/HCPCS: 71271

== ENCOUNTER → 2024-08-22 | Outpatient (CLI) | payer OTHER ==
[2024-08-22 18:19] LABS: Basophils # (A) 0.08 X 10*3/uL (0.00-0.10); Basophils % (A) 0.9 %; Eosinophils # (A) 0.25 X 10*3/uL (0.04-0.35); HCT 48.7 % (39.6-50.0); HGB 15.6 g/dL (13.0-17.0); Lymphocytes # (A) 1.37 X 10*3/uL (0.90-5.00); Lymphocytes % (A) 16.2 %; MCH 29.5 pg (27.0-32.0); MCV 92.1 FL (80.0-97.0); Monocytes # (A) 0.74 X 10*3/uL (0.20-1.00); Monocytes % (A) 8.7 %; NRBC Per 100 WBC 0 X 10*3/uL (0.00-0.01); Neutrophils % (A) 70.8 %; Platelet Count 309 X 10*3/uL (140-440); RBC 5.29 X 10*6/uL (4.40-5.60); RDW 12.6 % (11.5-14.5); WBC 8.47 X 10*3/uL (4.50-10.00)
[2024-08-22 19:16] LABS: ALT 37 U/L (10-49); AST 29 U/L (14-35); Albumin 4.6 g/dL (3.8-4.9); Albumin/Globulin Ratio 1.84 Ratio (1.60-3.17); Alkaline Phosphatase 114 U/L (41-126); BUN/Creat Ratio 16.88 Ratio (12.00-20.00); Blood Urea Nitrogen 13.5 mg/dL (9.0-27.0); Calcium 9.5 mg/dL (8.7-10.3); Carbon Dioxide 30.2 mmol/L (21.6-31.8); Chloride 100 mmol/L (96-109); Globulin 2.5 g/dL (1.6-3.3); Glucose 112 mg/dL (70-110); LDL Cholesterol,Calculated 149.2 mg/dL (0.0-131.0); Magnesium 1.9 mg/dL (1.5-2.4); Potassium 4.2 mmol/L (3.5-5.5); Sodium 143 mmol/L (135-145); Total Bilirubin 0.5 mg/dL (0.3-1.2); Total Protein 7.1 g/dL (6.2-8.2)
== END | disposition home or self-care (01) ==
LOC: LABWHC1 14:33
PROVIDERS: ATTEND Internal Medicine
DX: Z12.5 Encounter for screening for malignant neoplasm of prostate (principal); I10 Essential (primary) hypertension; E11.9 Type 2 diabetes mellitus without complications
CPT/HCPCS: 80061; 80053; 84443; 83735; 85025; 82043; 82570; 36415; G0103

== ENCOUNTER → 2024-11-10 | Outpatient (CLI) | payer MEDICARE, OTHER ==
--- NOTE | 2024-11-10 10:38 | CTL ---
EXAMINATION TYPE: CT Low Dose Lung DATE OF EXAM: 11/10/2024 10:02 AM COMPARISON: 11/13/2023 CLINICAL INDICATION: Male, 64 years old with history of Z12.2 ENCNTR SCREEN FOR MALIGNANT NEOPLASM Z8 7.891; Former smoker, quit 6 years ago. 2 ppd x 30 years, history of tobacco use. TECHNIQUE: Multiple axial non-contrast scans were obtained from approximately the lung apices through the upper abdomen. Coronal and sagittal reformatted images were obtained. Low dose technique was uti lized. MIP were created on a separate workstation and submitted for review. CT DLP: 121 mGycm, Automated exposure control for dose reduction was used. CT Contrast: Contrast used: None Oral contrast used: None FINDINGS: Lack of intravenous contrast and low dose technique limits the evaluation of the vascular and soft ti ssue structures. LUNGS: No evidence of pulmonary fibrosis. No evidence of focal consolidation, pneumothorax or pleural effusion. Centrilobular emphysema changes. Nodules: RUL: None. RML: None. RLL: None. LINDA: None. LLL: None. AIRWAY: Patent and unremarkable. HEART: Size within normal limits. Moderate coronary artery calcifications present. MEDIASTINUM: No gross evidence of adenopathy. VASCULATURE: No aortic aneurysm. MUSCULOSKELETAL: No acute osseous abnormalities SOFT TISSUES/LYMPH NODES: Unremarkable. LOWER NECK: No significant findings. UPPER ABDOMEN: No significant findings. IMPRESSION: 1. No clinically significant pulmonary nodules. 2. Moderate emphysema. 3. Moderate coronary artery calcifications present. CT LUNG RAD AND CT CHEST RECOMMENDATION: Lung-Rad 2 Benign Appearance or Behavior: Continue annual sc reening with LDCT in 12 months. S Modifier (other clinically significant findings): None Recommend smoking cessation (if current smoker), or continuation of smoking cessation (if prior smoke r). Annual screening for lung cancer with low-dose computed tomography is recommended in adults ages 55 to 77 years who have a 30 pack-year smoking history and currently smoke or have quit within the pa st 15 years. Screening should be discontinued once a person has not smoked for 15 years or develops a health problem that substantially limits life expectancy or the ability or willingness to have curat penny lung surgery. Lung rads 2021 [email or web address] [facility], , 11/10/2024 10:35 AM
== END | disposition home or self-care (01) ==
LOC: RADCTMAIN 09:22
PROVIDERS: ATTEND Internal Medicine Critical Care Medicine
DX: Z12.2 Encounter for screening for malignant neoplasm of respiratory organs (principal); I25.10 Atherosclerotic heart disease of native coronary artery without angina pectoris; J43.2 Centrilobular emphysema; Z87.891 Personal history of nicotine dependence
CPT/HCPCS: 71271

== ENCOUNTER → 2024-12-15 | Outpatient (CLI) | payer MEDICARE ==
[2024-12-15 15:31] LABS: Basophils # (A) 0.07 X 10*3/uL (0.00-0.10); Basophils % (A) 0.9 %; Eosinophils # (A) 0.23 X 10*3/uL (0.04-0.35); Eosinophils % (A) 3.0 %; HCT 48.9 % (39.6-50.0); HGB 15.8 g/dL (13.0-17.0); Immature Grans, Automated 0.30 %; Lymphocytes # (A) 1.23 X 10*3/uL (0.90-5.00); Lymphocytes % (A) 15.9 %; MCH 29.2 pg (27.0-32.0); MCHC 32.3 g/dL (32.0-37.0); MCV 90.2 FL (80.0-97.0); Monocytes # (A) 0.69 X 10*3/uL (0.20-1.00); Monocytes % (A) 8.9 %; NRBC Per 100 WBC 0 X 10*3/uL (0.00-0.01); Neutrophils # (A) 5.48 X 10*3/uL (1.80-7.70); Neutrophils % (A) 71.0 %; Platelet Count 298 X 10*3/uL (140-440); RBC 5.42 X 10*6/uL (4.40-5.60); RDW 12.9 % (11.5-14.5); WBC 7.72 X 10*3/uL (4.50-10.00)
[2024-12-15 15:56] LABS: ALT 34 U/L (10-49); AST 24 U/L (14-35); Albumin 4.5 g/dL (3.8-4.9); Albumin/Globulin Ratio 1.80 Ratio (1.60-3.17); Alkaline Phosphatase 113 U/L (41-126); Anion Gap 12.60 mmol/L (4.00-12.00); BUN/Creat Ratio 17.67 Ratio (12.00-20.00); Blood Urea Nitrogen 15.9 mg/dL (9.0-27.0); Calcium 9.6 mg/dL (8.7-10.3); Carbon Dioxide 28.4 mmol/L (21.6-31.8); Chloride 101 mmol/L (96-109); Cholesterol 221.00 mg/dL (0.00-200.00); Globulin 2.5 g/dL (1.6-3.3); Glucose 132 mg/dL (70-110); HDL Cholesterol 39.70 mg/dL (40.00-60.00); LDL Cholesterol,Calculated 133.5 mg/dL (0.0-131.0); Magnesium 2.1 mg/dL (1.5-2.4); PSA Annual Screen 1.350 ng/mL (0.000-4.000); Potassium 4.8 mmol/L (3.5-5.5); Sodium 142 mmol/L (135-145); Total Protein 7.0 g/dL (6.2-8.2); Triglycerides 239.00 mg/dL (0.00-149.00); VLDL Calculation 47.80 mg/dL (5.00-40.00)
== END | disposition home or self-care (01) ==
LOC: LABWHC1 08:55
PROVIDERS: ATTEND Internal Medicine
DX: Z12.5 Encounter for screening for malignant neoplasm of prostate (principal); I10 Essential (primary) hypertension; E11.9 Type 2 diabetes mellitus without complications; E78.5 Hyperlipidemia, unspecified
CPT/HCPCS: 80061; 80053; 84443; 83735; 85025; 36415; G0103